=== PATIENT | male | born 1965 | race Caucasian/White ===

== ENCOUNTER 2021-06-10 16:35 | Emergency (ER) | payer MEDICAID, SELFPAY ==
--- NOTE | ~2021-06-10 | CT_ITS ---
EXAMINATION: CT head/brain wo con, CT cervical spine wo con INDICATION INFORMATION: Reason for Exam fall COMPARISON: None TECHNIQUE: Separate noncontrast CT examinations of the head and cervical spine were performed. Coronal and sagittal images were created for each examination at the technologist workstation. This CT examination was performed using dose optimization techniques as appropriate, variously including the following: *Automated exposure control *Adjustment of mA and/or kV according to patient size (this includes techniques or standardized protocols for targeted exams where dose is matched to indication/reason for exam; i.e. extremities or head) *Use of iterative reconstruction technique DLP: 1081 mGy-cm FINDINGS: Head: Mild left parietal soft tissue scalp swelling. No underlying calvarial fracture. The mastoid air cells and visualized portions of the paranasal sinuses are well aerated. There is no evidence of acute intracranial hemorrhage or territorial infarction. No abnormal mass effect or midline shift is seen. Richards to white matter differentiation is well preserved. No extra-axial fluid collections are identified. No hydrocephalus. Cervical spine: There is no evidence of acute cervical spine fracture. Vertebral bodies remain normal in height. Reversal of the usual cervical spine lordosis. Multilevel loss of disc space height and multilevel posterior disc osteophyte complexes, ossification of the posterior longitudinal ligament and reversal of the usual cervical spine lordosis resulting in at least moderate multilevel canal stenosis. No pre- or paravertebral soft tissue abnormality is identified. Visualized portions of the lung apices are unremarkable. The thyroid gland is unremarkable. CT/CT cervical spine wo con IMPRESSION: 1. No acute intracranial abnormality. 2. No cervical spine fracture. 3. Multilevel loss of disc space height and multilevel posterior disc osteophyte complexes, ossification of the posterior longitudinal ligament and reversal of the usual cervical spine lordosis resulting in at least moderate multilevel canal stenosis.
[2021-06-10 16:50] VITALS: BP 107/58; BP 117/66; PULSE 62; RESP 16; TEMP 36.7; O2SAT 96; BMI 29.7
--- NOTE | 2021-06-10 16:57 | ED_ITS ---
HPI - General Adult General Chief complaint: Fall Stated complaint: FALL PER SNF Time Seen by Provider: 06/10/21 16:39 Source: EMS Mode of arrival: EMS Limitations: other (Chronic Anoxic brain injury) History of Present Illness HPI narrative: Patient is brought to the emergency room by EMS. Earlier today, patient had a fall. Patient is a fall risk, patient is known to get up, trying to walk and fall. The fall was not witnessed, but CNAs were nearby that her the fall. Does not seem that patient lost consciousness, patient is not on blood thinners. Patient unable to give any significant history. Patient states that he has localized, no pain, no neck pain. Related Data Allergies Allergy/AdvReac Type Severity Reaction Status Date / Time Cephalosporins Allergy Unknown Verified 06/10/21 16:50 Review of Systems Review of Systems: Yes Unobtainable due to mental condition PMFSH Past Medical History Medical History Anoxic brain damage, not elsewhere classified Ataxic gait Benign prostatic hyperplasia without lower urinary tract symptoms Chronic obstructive pulmonary disease, unspecified Constipation, unspecified Cramp and spasm Encephalopathy, unspecified Essential (primary) hypertension Hyperlipidemia, unspecified Major depressive disorder, recurrent, unspecified Obstructive sleep apnea (adult) (pediatric) Retention of urine, unspecified Schizoaffective disorder, unspecified Seborrheic dermatitis, unspecified Unspecified convulsions Social History Social History Patient Tobacco Use Status: Never used Tobacco Smoked in Last 30 Days: No Use of substances other than those prescribed or required for medical reasons: No Advance Directives: No Advance Directives Information Provided: No Physical Exam Vital Signs: Vital Signs: Last Vital Signs Temp 98.1 F 06/10/21 18:00 Pulse 67 06/10/21 18:00 Resp 18 06/10/21 18:00 BP 138/68 06/10/21 18:00 Pulse Ox 95 06/10/21 18:00 BMI result Body Mass Index 29.7 Const: Other: Appearance: Alert. Oriented X2. No acute distress. Eyes: Pupils equal, round and reactive to light. ENT: Pharynx normal. Neck: Normal inspection. Neck supple. No lymph nodes noted. No crepitus CVS: Normal heart rate and rhythm. Pulses normal. Normal S1 and S2 Respiratory: No respiratory distress. Breath sounds normal. No Wheezing. No ra les Abdomen: Soft and nontender. No rigidity. No distention. Skin: Skin warm and dry. 3 cm x 3 cm hematoma on the forehead, no abrasion, no bleeding Extremities: No lower extremity edema. No lower extremity edema. No Lacerations. No Rash Neuro: Oriented X 2. No motor deficit. No sensory deficit. Moving all extermities. No slurred speech. Course Course Course Narrative: Patient's head and neck CT showing no acute abnormalities. Patient's COVID test is negative. No acute lab abnormalities. Medical Decision Making Lab Data Result diagrams: 06/10/21 17:25 06/10/21 17:25 Labs: Lab Results 06/10/21 06/10/21 06/10/21 Range/Units 17:25 17:25 17:25 WBC 8.6 (4.8-10.8) X10*3/uL RBC 4.17 L (4.60-5.80) X10*6/uL Hgb 13.4 L (14.0-18.0) g/dl Hct 38.6 L (42.0-52.0) % MCV 92.6 (80.0-98.0) fL MCH 32.1 (27.0-33.0) pg MCHC 34.7 (31.0-36.0) g/dl RDW 11.6 (11.0-16.0) % Plt Count 213 (160-400) X10*3/uL MPV 9.4 (9.4-12.4) fL Immature Gran % (Auto) 0.4 (0.0-0.4) % Neut % (Auto) 71.6 (45-73) % Lymph % (Auto) 13.9 L (20-40) % [place] % (Auto) 9.8 (2-11) % Eos % (Auto) 3.9 (0-4) % Baso % (Auto) 0.4 (0-2) % Lymph # (Auto) 1.2 (1.2-4.9) X10*3/uL [place] # (Auto) 0.8 (0.1-1.2) X10*3/uL Eos # (Auto) 0.3 (0.0-0.4) X10*3/uL Baso # (Auto) 0.0 (0.0-0.2) X10*3/uL Abs Immat Gran (auto) 0.03 (0.00-0.03) X10*3/uL Absolute Neuts (auto) 6.1 (2.0-8.3) x10*3/uL Absolute Nucleated RBC 0.000 (0.0-0.012) X10*3/uL Nucleated RBC % (auto) 0.0 (0.0-0.2) /100WBC Sodium 136 (135-145) mmol/L Potassium 4.1 (3.3-5.1) mmol/L Chloride 102 (96-108) mmol/L Carbon Dioxide 26 (22-29) mmol/L Anion Gap 12 (12-20) BUN 17 H (9-16) mg/dL Creatinine 0.85 (0.5-1.4) mg/dL Estim Creat Clear Calc 101.7 Estimated GFR > 60 Random Glucose 108 (60-115) mg/dL Calcium 9.4 (8.4-10.2) mg/dL Total Bilirubin < 0.2 (0.0-1.0) mg/dL Direct Bilirubin < 0.2 (0.0-0.5) mg/dL AST 25 (5-37) U/L ALT 36 (0-40) U/L Alkaline Phosphatase 104 (39-117) U/L Total Protein 7.1 (6.5-8.0) g/dL Albumin 4.2 (3.5-5.0) g/dL COVID-19 (MARKUS) Negative (Negative) COVID-19 Clin Com See Note Imaging Data CT of the head and cervical spine: Radiologist's impression: FINDINGS: Head: Mild left parietal soft tissue scalp swelling. No underlying calvarial fracture. The mastoid air cells and visualized portions of the paranasal sinuses are well aerated. There is no evidence of acute intracranial hemorrhage or territorial infarction. No abnormal mass effect or midline shift is seen. Richards to white matter differentiation is well preserved. No extra-axial fluid collections are identified. No hydrocephalus.? Cervical spine: There is no evidence of acute cervical spine fracture. Vertebral bodies remain normal in height.? ? Reversal of the usual cervical spine lordosis. Multilevel loss of disc space height and multilevel posterior disc osteophyte complexes, ossification of the posterior longitudinal ligament and reversal of the usual cervical spine lordosis resulting in at least moderate multilevel canal stenosis. No pre- or paravertebral soft tissue abnormality is identified.? Visualized portions of the lung apices are unremarkable. The thyroid gland is unremarkable. CT/CT head/brain wo con IMPRESSION: ? 1.? No acute intracranial abnormality. ? 2.? No cervical spine fracture. ? 3.? Multilevel loss of disc space height and multilevel posterior disc osteophyte complexes, ossification of the posterior longitudinal ligament and reversal of the usual cervical spine lordosis resulting in at least moderate multilevel canal stenosis. Discharge Plan Discharge Clinical Impression: Fall, Contusion Patient Disposition: Home, Self-Care Instructions: Facial Contusion (ED) Additional Instructions: Please follow-up with your primary care physician tomorrow. If you have any worsening or new symptoms, please return to the emergency room or call 911
--- NOTE | 2021-06-10 17:02 | PC.NURSE ---
Pt to CT scan
[2021-06-10 17:33] LABS: Basophils Percent Auto 0.4 % (0-2); Eosinophils Absolute Auto 0.3 X10*3/uL (0.0-0.4); Eosinophils Percent Auto 3.9 % (0-4); Hematocrit 38.6 % (42.0-52.0); Hemoglobin 13.4 g/dl (14.0-18.0); Imm Gran Abs Auto 0.03 X10*3/uL (0.00-0.03); Imm Gran Pct Auto 0.4 % (0.0-0.4); Lymphocytes Absolute Auto 1.2 X10*3/uL (1.2-4.9); Lymphocytes Percent Auto 13.9 % (20-40); MANUAL DIFF FLAG NO; Mean Corpuscular HGB Conc 34.7 g/dl (31.0-36.0); Mean Corpuscular Hemoglobin 32.1 pg (27.0-33.0); Mean Corpuscular Volume 92.6 fL (80.0-98.0); Mean Platelet Volume 9.4 fL (9.4-12.4); Monocytes Absolute Auto 0.8 X10*3/uL (0.1-1.2); Monocytes Percent Auto 9.8 % (2-11); Neutrophils Absolute Auto 6.1 x10*3/uL (2.0-8.3); Neutrophils Percent Auto 71.6 % (45-73); Platelet Count 213 X10*3/uL (160-400); Red Blood Count 4.17 X10*6/uL (4.60-5.80); Red Cell Distribution Width 11.6 % (11.0-16.0); White Blood Count 8.6 X10*3/uL (4.8-10.8)
[2021-06-10 17:53] LABS: COVID-19 Test Negative (Negative)
[2021-06-10 18:00] VITALS: BP 138/68; PULSE 67; RESP 18; TEMP 36.7; O2SAT 95
--- NOTE | 2021-06-10 18:01 | ECG_ITS ---
Test Reason : fall Blood Pressure : / mmHG Vent. Rate : 055 BPM Atrial Rate : 055 BPM P-R Int : 190 ms QRS Dur : 072 ms QT Int : 426 ms P-R-T Axes : 051 019 032 degrees QTc Int : 407 ms Sinus bradycardia Otherwise normal ECG No previous ECGs available Referred By: Salima Diamond Electronically Signed By:Lazarus Lane
[2021-06-10 18:11] LABS: Alanine Aminotransferase 36 U/L (0-40); Albumin Level 4.2 g/dL (3.5-5.0); Alkaline Phosphatase 104 U/L (39-117); Anion Gap 12 (12-20); Aspartate Amino Transferase 25 U/L (5-37); Bilirubin Direct < 0.2 mg/dL (0.0-0.5); Bilirubin Total < 0.2 mg/dL (0.0-1.0); Blood Urea Nitrogen 17 mg/dL (9-16); Calcium 9.4 mg/dL (8.4-10.2); Carbon Dioxide 26 mmol/L (22-29); Chloride 102 mmol/L (96-108); Creatinine Clr Calc Pharmacy 101.7; Estimated Glomerular Filt Rate > 60; Glucose Random 108 mg/dL (60-115); Potassium 4.1 mmol/L (3.3-5.1); Sodium 136 mmol/L (135-145); Total Protein 7.1 g/dL (6.5-8.0)
--- NOTE | 2021-06-10 18:24 | PC.NURSE ---
patient a&ox2- person/place, vss, pt denies pain/discomfort at this time, will continue to monitor.
--- NOTE | 2021-06-10 20:06 | PC.NURSE ---
Pt SNF notified that pt will be returning via EMS. Mother updated via phone
== END 2021-06-10 21:01 | disposition home or self-care (01) ==
PROVIDERS: Emergency Provider Emergency Medicine; PCP Internal Medicine
DX: S00.83XA Contusion of other part of head, initial encounter (principal); W19.XXXA Unspecified fall, initial encounter; Z91.81 History of falling; Z20.822 Contact with and (suspected) exposure to COVID-19; I10 Essential (primary) hypertension; E78.5 Hyperlipidemia, unspecified; G93.1 Anoxic brain damage, not elsewhere classified; Y93.9 Activity, unspecified; Y92.122 Bedroom in nursing home as the place of occurrence of the external cause; Y99.9 Unspecified external cause status
CPT/HCPCS: 36415; 70450; 72125; 80048; 80076; 85025; 87635; 93005; 99284

== ENCOUNTER 2023-01-19 | Outpatient (REF) | payer MEDICAID, SELFPAY | END 2023-01-19 00:01 | disposition home or self-care (01) | LOC: CF | PROVIDERS: PCP Emergency Medicine; Visit Provider Physician Assistant | DX: R10.9 Unspecified abdominal pain (principal) | CPT/HCPCS: 99204 ==

== ENCOUNTER → 2023-01-19 14:37 | Outpatient (AMB) | payer MEDICAID, SELFPAY ==
--- NOTE | 2023-01-19 14:46 | MHC.OFFVIS ---
Intake Vital Signs 01/19/23 15:06 Height 5 ft 7 in Weight 216 lb BMI 33.8 BP 114/67 Blood Pressure Location Lt brachial Position Sitting Pulse 75 Intake Visit Reasons: Colonoscopy Screening Allergies Cephalosporins Allergy (Verified 06/10/21 16:50) Unknown HPI HPI Comments History of Present Illness Details A 57 y/o male referred for screening colonoscopy- accompanied by COMMERCIAL INSTRUCTOR SUPERVISOR- says he understands- my observation- he has difficulty with speech/ communicating-he is difficult to understand when questions asked- able to get few words in answer- COMMERCIAL INSTRUCTOR SUPERVISOR-has no medical history information- consult paper attached to med list He does nod -appropriately- Denies belly pain- Appetite is good-he says he likes to eat- He says he is having a sleep study soon Spoke w/ Ann- discussed screening for colon cancer - colonoscopy vs cologuard-if he is infact asymptomatic No fever, chills, abdominal pain- incontinent- stool/urine- F/C in place [facility] Medical History (Updated 01/24/23 @ 14:00 by Fariha Lance PA-C) Anoxic brain damage, not elsewhere classified Ataxic gait Benign prostatic hyperplasia without lower urinary tract symptoms Chronic obstructive pulmonary disease, unspecified Constipation, unspecified Cramp and spasm Encephalopathy, unspecified Essential (primary) hypertension Hyperlipidemia, unspecified Major depressive disorder, recurrent, unspecified Obstructive sleep apnea (adult) (pediatric) Retention of urine, unspecified Schizoaffective disorder, unspecified Seborrheic dermatitis, unspecified Unspecified convulsions Social History (Updated 01/24/23 @ 13:50 by Fariha Lance PA-C) Household Members: Unknown / Unable to assess Household Members Other:: [place] [facility] Patient Tobacco Use Status: Never used Tobacco Review of Systems Card Denies chest pain and Denies dyspnea Resp Denies dyspnea GI Denies abdominal pain, Denies hematochezia, Denies heartburn, Reports fecal incontinence, Denies nausea and Denies vomiting Reports urinary incontinence Physical Exam Vital Signs: Last Vital Signs Pulse 75 01/19/23 15:06 BP 114/67 01/19/23 15:06 BMI result Body Mass Index 33.8 Const General: comfortable and no acute distress Limitations: altered mental status and wheelchair Resp Auscultation: clear to auscultation bilaterally, no rhonchi and no wheezes Cardio Rate: regular rate Rhythm: regular rhythm GI Palpation (GI): Soft to palpation and nontender Skin General skin exam: no rashes or lesions noted Psych Speech and movement: Slurred speech present Attitude: cooperative Assessment & Plan Assessment & Plan (1) Screen for colon cancer: Comment: pleasant 57 y/o gent-anoxic brain injury referred for screening colonoscopy. No GI symptoms- Incontinence- for years Discussed colonoscopy alternatives- Spoke with staff member- Cologuard- will submit request-if neg- repeat screening 3 years if positive recommend colonoscopy If any questions/ concerns please contact us- Code(s): Z12.11 - Encounter for screening for malignant neoplasm of colon Plan Cologuard Patient Instructions: As above Coding Level of Care Code New Pt Level 4 (68083) Diagnoses Screen for colon cancer Z12.11 Time Spent (min) 40 Comment pt- anoxic brain injury COMMERCIAL INSTRUCTOR SUPERVISOR present Call placed to facility
[2023-01-19 15:06] VITALS: BP 114/67; PULSE 75; BMI 33.8
== END ==
PROVIDERS: PCP Internal Medicine; Visit Provider Physician Assistant
DX: Z12.11 Encounter for screening for malignant neoplasm of colon (principal)
CPT/HCPCS: 99204

== ENCOUNTER 2023-01-24 10:27 | Outpatient (AMB) | payer MEDICAID, SELFPAY ==
[2023-01-24 10:35] VITALS: BP 110/58; PULSE 64; O2SAT 94; BMI 23.5
--- NOTE | 2023-01-24 10:35 | A.OFFVIS_ITS ---
Intake Vital Signs 01/24/23 10:35 Height 5 ft 7 in Weight 150 lb BMI 23.5 BP 110/58 L Blood Pressure Location Lt brachial Position Sitting Pulse 64 Pulse Source Pulse Oximeter Pulse Oximetry (%) 94 Oxygen Delivery Method Room Air Intake Visit Reasons: COPD/ASHANTI/Atelectasis Legislative Correspondent Required: No Middle School Sports Coach: Middle School Sports Coach offered & declined Accompanied by: [employer] Employee Allergies Cephalosporins Allergy (Verified 06/10/21 16:50) Unknown Medication List - Last Reconciled 01/24/23 by Leela Sauer LPN acetaminophen 650 mg LA Q6H baclofen 5 mg PO DAILY bisacodyl (Fleet Bisacodyl) 5 mg LA DAILY PRN bisacodyl (Dulcolax (bisacodyl)) 10 mg LA DAILY PRN carbamazepine ER 100 mg PO DAILY cetirizine (Zyrtec) 10 mg PO DAILY PRN cholecalciferol (vitamin D3) 10 mcg PO DAILY CPAP As directed fluoxetine 20 mg PO DAILY fluticasone furoate-vilanterol 100-25 mcg/dose (Breo Ellipta) 1 inh inhalation DAILY ipratropium-albuterol 0.5 mg-3 mg(2.5 mg base)/3 mL 3 mL inhalation Q6-8H PRN ketoconazole-miconazole 2-2 % apply KETOCONAZOLE once or twice daily; apply MICONAZOLE once or twice daily topical magnesium hydroxide (Milk of Magnesia) 5 mL PO BEDTIME naloxone 0.4 mg subcut Q2M PRN polyethylene glycol 3350 (Miralax) 17 grams PO DAILY potassium chloride 20 mEq PO DAILY sennosides (senna) 8.6 mg PO BEDTIME tamsulosin 0.4 mg PO DAILY tizanidine 2 mg PO Q8H PRN HPI COPD/ASHANTI/Atelectasis HPI Details Harjinder is a pleasant 57 year old, minimal former smoker, with COPD, ASHANTI, underlying TBI, seizure disorder and neurocognitive disorder. He is accompanied by a care attedent from [facility], [place] where he resides. Today he presents for pulmonary evaluation. He was referred by PCP for COPD, ASHANTI and CT findings of atelectasis. Patient reports an intermittent dry cough otherwise denies any respiratory symptoms at this time and feels his symptoms are well controlled on Breo, Claritin and duonebs PRN. He has a known history of ASHANTI and uses a CPAP. Prior to using he reports significant day time fatigue and snoring. He reports his last sleep study was quite some time ago. 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 He reports his father, smoker, had lung cancer. [facility] Medical History (Updated 01/25/23 @ 13:20 by Salima Rodgers NP) Anoxic brain damage, not elsewhere classified Ataxic gait Benign prostatic hyperplasia without lower urinary tract symptoms Chronic obstructive pulmonary disease, unspecified Constipation, unspecified Cramp and spasm Encephalopathy, unspecified Essential (primary) hypertension Hyperlipidemia, unspecified Major depressive disorder, recurrent, unspecified Obstructive sleep apnea (adult) (pediatric) Retention of urine, unspecified Schizoaffective disorder, unspecified Seborrheic dermatitis, unspecified Unspecified convulsions Social History (Updated 01/24/23 @ 13:50 by Fariha Lance PA-C) Household Members: Unknown / Unable to assess Household Members Other:: [place] [facility] Patient Tobacco Use Status: Never used Tobacco Review of Systems Const Denies chills, Denies excessive sweating, Denies fever(s), Denies headache(s) and Denies night sweats Eyes Denies dry eyes, Denies irritation and Denies itchy eyes ENT Reports Normal hearing present, Denies headache(s), Denies nasal congestion, Denies nasal discharge, Denies post nasal drip and Denies sore throat Card Denies chest pain, Denies chest pain at rest, Denies chest pain with activity, Denies dyspnea, Denies dyspnea on exertion, Denies orthopnea and Denies pa roxysmal nocturnal dyspnea Resp Denies chest congestion, Reports cough, Denies excessive phlegm production, Denies pain on inspiration, Denies pain with cough, Denies dyspnea, Denies dyspnea on exertion, Denies stridor and Denies wheezing Musc Denies myalgias Neuro Reports Normal hearing present and Denies headache(s) Endo Denies excessive sweating Eber/Lymph Denies lymphadenopathy Aller/Immun Denies itchy eyes, Denies seasonal rhinorrhea and Denies wheezing Physical Exam Vital Signs: Last Vital Signs Pulse 64 01/24/23 10:35 BP 110/58 L 01/24/23 10:35 Pulse Ox 94 01/24/23 10:35 Oxygen Delivery Method Room Air 01/24/23 10:35 BMI result Body Mass Index 23.5 Const Other: Patient able to answer questions appropriately, difficult to understand at times . General: cooperative, comfortable, no acute distress, well developed and alert Orientation/consciousness: patient oriented x3 Limitations: wheelchair HEENT Head: Yes normal to inspection, Yes normocephalic and Yes atraumatic Ears: hearing grossly normal bilaterally and external ears normal Eyes General: appearance normal, both eyes and all related structures Eyelids: Yes eyelids normal Sclerae: sclerae normal EOM: EOMs intact bilaterally Neck Neck: Yes normal visual inspection and Yes no lymphadenopathy Lymphatic: no lymphadenopathy noted Chest Chest palpation & inspection: normal inspection of the chest Resp Effort & Inspection: normal respiratory effort, able to speak in complete sentences, no audible wheezes, no cough, no stridor, not tachypneic, no tripod positioning and no use of accessory muscles Auscultation: clear to auscultation bilaterally Cardio Jugular venous distension: no JVD Rate: regular rate Rhythm: regular rhythm Skin Other: warm, dry General skin exam: no rashes or lesions noted Neuro General: patient oriented x3 Cranial nerves: Yes Normal hearing present Cognition (Neuro): normal cognition Psych Appearance: grossly normal and well kempt Speech and movement: Normal speech and movement present and Clear speech present Affect: normal affect Attitude: cooperative Thought process: Normal thought process present Thought content: Normal thought content present Insight: Good insight present (Psych) Judgement: Good judgement present (Psych) Results Reviewed Results Reviewed: Assessment & Plan Assessment & Plan (1) Obstructive sleep apnea: Code(s): G47.33 - Obstructive sleep apnea (adult) (pediatric) (2) Daytime somnolence: Code(s): R40.0 - Somnolence (3) Atelectasis of both lungs: Code(s): J98.11 - Atelectasis Plan Harjinder was recently seen at [facility] with LUQ pain and incidental atelectasis was found on chest CT bilaterally. Encouraged patient to perform deep breathing exercises including use of incentive spirometer. Will repeat imaging in 3 months to see if there are any changes. This information was relayed to Vanessa, patient care nursing assistant at [facility], [place]. At this time, he reports respiratory symptoms are well controlled therefore will continue on current regimen of Breo and duonebs PRN. Patient with known history of ASHANTI and reports significant daytime fatigue if not using. Will send for updated home sleep study, as prior study was performed quite some time ago. All questions were answered and patient is in agreement of plan. Will follow up to review results. Orders: Orders RT home sleep study Today R40.0 - Somnolence CT chest wo IV con 03/29/23 J98.11 - Atelectasis Coding Level of Care Code New Pt Level 4 (46203) Diagnoses Obstructive sleep apnea G47.33 Daytime somnolence R40.0 Atelectasis of both lungs J98.11
== END 2023-01-24 11:09 | disposition home or self-care (01) ==
PROVIDERS: PCP Internal Medicine; Visit Provider Nurse Practitioner Family
DX: G47.33 Obstructive sleep apnea (adult) (pediatric) (principal); R40.0 Somnolence; J98.11 Atelectasis
CPT/HCPCS: 99204

== ENCOUNTER → 2023-01-24 10:27 | Outpatient (BNVA) | payer MEDICAID, SELFPAY | PROVIDERS: PCP Internal Medicine; Visit Provider Nurse Practitioner Family | DX: J98.11 Atelectasis (principal); J44.9 Chronic obstructive pulmonary disease, unspecified; G47.33 Obstructive sleep apnea (adult) (pediatric); R40.0 Somnolence; Z99.89 Dependence on other enabling machines and devices; Z79.899 Other long term (current) drug therapy | CPT/HCPCS: 99204 ==

== ENCOUNTER → 2023-01-25 19:30 | Outpatient (REF) | payer MEDICAID, SELFPAY | LOC: HO.SL 19:30 | PROVIDERS: Visit Provider Nurse Practitioner Gerontology | DX: G47.33 Obstructive sleep apnea (adult) (pediatric) (principal); R40.0 Somnolence; R00.1 Bradycardia, unspecified | CPT/HCPCS: 95806 ==

== ENCOUNTER → 2023-01-25 21:56 | Outpatient (BNV) | payer MEDICAID, SELFPAY | PROVIDERS: Visit Provider Psychiatry & Neurology Neurology | DX: G47.33 Obstructive sleep apnea (adult) (pediatric) (principal); G47.61 Periodic limb movement disorder; R00.1 Bradycardia, unspecified | CPT/HCPCS: 95806 ==

== ENCOUNTER 2023-03-09 08:58 | Outpatient (REF) | payer MEDICAID, SELFPAY ==
--- NOTE | ~2023-03-09 | CT_ITS ---
EXAMINATION: CT CHEST WITHOUT CONTRAST CLINICAL INFORMATION: Atelectasis. COMPARISON: Chest radiographs dated 01/09/2023 and 03/14/2023. TECHNIQUE: Multidetector volumetric CT imaging of the chest was done. Axial MIP volume rendering provided. Sagittal and coronal reformatted images were obtained. This CT examination was performed using dose optimization techniques as appropriate, variously including the following: *Automated exposure control *Adjustment of mA and/or kV according to patient size (this includes techniques or standardized protocols for targeted exams where dose is matched to indication/reason for exam; i.e. extremities or head) *Use of iterative reconstruction technique DLP: 395 mGy-cm FINDINGS: REAL TIME ANALYST: The lungs are symmetrically well-expanded. There is diminished, now mild elevation of the left hemidiaphragm. LUNGS: There are scattered foci of linear scar/subsegmental atelectasis within the posterior segment of the right upper lobe and the bilateral lower lobes. There is no associated central airway obstruction. There is mild dependent hypoaeration. No mass, nodule, infiltrate or groundglass opacity is seen. There is no small airway thickening. The central airways appear patent. MEDIASTINUM: The thyroid is unremarkable. There is no thoracic aortic aneurysm. There are mild atherosclerotic calcifications of the great vessel origins and thoracic aorta. No mediastinal or hilar lymphadenopathy is seen. CORONARY ARTERY CALCIFICATION: Mild. PLEURA: There is no pleural effusion. No pleural mass or thickening. AXILLA: No lymphadenopathy. UPPER ABDOMEN: Unremarkable. OSSEOUS STRUCTURES: There is multi-level thoracic and upper lumbar degenerative disc disease, spondylosis and Schmorl's node formation. No acute or aggressive osseous abnormality is seen. CT/CT chest wo IV con IMPRESSION: 1. There are scattered foci of linear scar/subsegmental atelectasis within the lungs, without associated focal airway obstruction. There is mild elevation of the left hemidiaphragm. 2. No mass, nodule, infiltrate or groundglass opacity is seen. 3. There is no thoracic lymphadenopathy or pleural effusion. 4. There are multi-level degenerative changes of the thoracolumbar spine. No aggressive osseous lesion is seen. Fleischner guidelines were followed.
== END 2023-03-09 08:59 | disposition home or self-care (01) ==
LOC: HO.CT 08:58
PROVIDERS: Visit Provider Nurse Practitioner Family
DX: J98.11 Atelectasis (principal)
CPT/HCPCS: 71250

== ENCOUNTER 2023-03-14 07:57 | Inpatient (IN) | payer MEDICAID, SELFPAY ==
[2023-03-14] VITALS (16 sets, daily range): BP systolic 91–126; BP diastolic 44–70; PULSE 41–97; RESP 8–25; TEMP 32.2–37; O2SAT 93–97; BMI 33.9; BMI 33.3
--- NOTE | ~2023-03-14 | XR_ITS ---
EXAMINATION: XR CHEST CLINICAL INFORMATION: Altered mental status COMPARISON: None available. TECHNIQUE: Frontal view of the chest was obtained. FINDINGS: Heart, mediastinum and vessels within normal limits. Elevated left hemidiaphragm with basilar atelectasis. No consolidations or effusions. Bony structures are intact. XR/XR chest 1V IMPRESSION: Left base atelectasis with elevated left hemidiaphragm.
--- NOTE | ~2023-03-14 | CT_ITS ---
EXAMINATION: CT HEAD WITHOUT CONTRAST CLINICAL INFORMATION: Altered mental status. COMPARISON: None available. TECHNIQUE: Contiguous axial imaging was performed from the skull base to vertex without intravenous administration of contrast. This CT examination was performed using dose optimization techniques as appropriate, variously including the following: *Automated exposure control *Adjustment of mA and/or kV according to patient size (this includes techniques or standardized protocols for targeted exams where dose is matched to indication/reason for exam; i.e. extremities or head) *Use of iterative reconstruction technique DLP: 631 mGy-cm FINDINGS: The lateral, third and fourth ventricles are normally outlined. The cortical sulci and basal cisterns are normally outlined as well. There is no acute territorial defect, hemorrhage or midline shift. The extra-axial spaces are unremarkable. Calvarium: Intact. Maxillofacial sinuses and mastoids: Clear as visualized. CT/CT head/brain wo IV con IMPRESSION: No acute intracranial pathology.
--- NOTE | ~2023-03-14 | CT_ITS ---
EXAMINATION: CT HEAD WITHOUT CONTRAST CLINICAL INFORMATION: Unresponsiveness. COMPARISON: Head CT from 06/10/2021 and 12/10/2022 TECHNIQUE: Contiguous axial imaging was performed from the skull base to vertex without intravenous administration of contrast. This CT examination was performed using dose optimization techniques as appropriate, variously including the following: *Automated exposure control *Adjustment of mA and/or kV according to patient size (this includes techniques or standardized protocols for targeted exams where dose is matched to indication/reason for exam; i.e. extremities or head) *Use of iterative reconstruction technique DLP: 694 mGy-cm FINDINGS: No acute intracranial findings compared to 12/10/2022. The kwan-white matter differentiation is maintained. No evidence of an acute major vascular territory infarction. No intracranial hemorrhage, extra-axial surface collection, focal mass effect or midline shift. The ventricles have normal size and configuration; no hydrocephalus. The cerebellar tonsils are in normal position. No evidence of calvarial fracture. The paranasal sinuses and mastoid air cells are well aerated. The temporomandibular joints, orbits and globes are unremarkable. Incidentally noted are dental caries. CT/CT head/brain wo IV con IMPRESSION: No acute intracranial pathology compared to 12/10/2022.
--- NOTE | ~2023-03-14 | CT_ITS ---
EXAMINATION: CT ABDOMEN AND PELVIS WITHOUT CONTRAST CLINICAL INFORMATION: Abdominal distention COMPARISON: None available. TECHNIQUE: Multidetector volumetric imaging was performed from the superior aspect of the liver through the pubic symphysis. Sagittal and coronal reformatted images were obtained on the technologist's workstation. This CT examination was performed using dose optimization techniques as appropriate, variously including the following: *Automated exposure control *Adjustment of mA and/or kV according to patient size (this includes techniques or standardized protocols for targeted exams where dose is matched to indication/reason for exam; i.e. extremities or head) *Use of iterative reconstruction technique DLP: 1358 mGy-cm FINDINGS: LUNG BASES: Subsegmental atelectasis at the lung bases LIVER, GALLBLADDER, AND BILIARY TREE: The liver is normal in size, shape, and attenuation. No focal hepatic lesion or biliary ductal dilatation is present. The gallbladder is unremarkable with no evidence of radiopaque gallstones, gallbladder wall thickening, or obvious pericholecystic inflammatory changes. PANCREAS: Fatty infiltration of the pancreas. SPLEEN: Unremarkable. ADRENAL GLANDS: Unremarkable. KIDNEYS AND URETERS: The kidneys are normal in size, shape, and attenuation. No hydronephrosis, hydroureter, or calculi seen. No perinephric stranding. BLADDER: There is a Reynolds catheter in the bladder. The bladder is empty. The bladder wall is markedly thickened. There is contour abnormality along the right anterior lateral bladder wall. Is difficult to exclude a mass. GASTROINTESTINAL TRACT: There is a large amount of stool in the colon suggestive of constipation. The colon is dilated suggestive of secondary obstruction or obstipation. There is mild wall thickening of the rectosigmoid region and some stranding of the fat is normal for stercoral colitis related to chronic constipation. Small and large bowel is otherwise normal. The appendix is normal. The stomach is normal. ABDOMINAL WALL: Small umbilical hernia containing fat. LYMPH NODES: Normal. VASCULAR: Atherosclerotic disease. PELVIC VISCERA: The prostate gland does not appear enlarged. OSSEOUS STRUCTURES: Degenerative changes of the spine. CT/CT abdomen pelvis wo IV con IMPRESSION: Severe constipation. Dilated colon suggestive of secondary obstruction/obstipation and fecal impaction. Mild wall thickening of the rectosigmoid region and stranding of the surrounding fat questionable for stercoral colitis related to chronic constipation. Reynolds catheter in the bladder. Diffusely thickened bladder wall. Abnormal contour to the right anterior lateral bladder wall. Mass cannot be excluded. Follow-up bladder imaging recommended. Fleischner guidelines were followed.
--- NOTE | 2023-03-14 08:18 | ED.AMS ---
HPI - Altered Mental Status General Chief Complaint: Altered Mental Status Stated Complaint: AMS,ALERT TO PAIN ONLY FROM SNF PER EMS Time Seen by Provider: 03/14/23 08:18 Source: EMS Mode of arrival: EMS Limitations: altered mental status History of Present Illness HPI narrative: 57-year-old male With history of frontotemporal neuro cognitive disorder, depression, seizures, history of obstructive uropathy, schizoaffective disorder, constipation, BPH, COPD, dysphagia, ataxia, HTN, anoxic brain injury, hepatitis-C, anemia, polyneuropathy who presents to the ER via EMS from [facility] for evaluation of altered mental status. Patient is usually awake, alert and conversant, he requires assistance with ADLs. Per report from the group home, after the patient was stressed this morning and moved to the chair he became poorly responsive. He had snoring respirations. He is found have heart rate in the 40s. EMS was called. On EMS arrival patient was arousable to sternal rub only. His heart rate was in the 40s, blood pressure was stable. On arrival to the ER patient had similar vital signs. He was altered, protecting his airway. He would groan with sternal rub. He was found have a core temperature of 90 degrees. senior care staff denied any trauma, he is not on anticoagulation. No history of similar episodes. No witnessed seizure activity with staff this morning. They state he was complaining of some abdominal discomfort yesterday, had a KUB that showed some mild constipation he was started on Colace. MD complaint: altered mental status Onset (ago): minute(s) Time: 06:50 Timing confirmed by: caregiver Severity: severe Consistency of symptoms: getting Worse Context: seizure disorder Treatments prior to arrival: oxygen Related Data Home Medications Medication Instructions Recorded Confirmed CPAP 01/19/23 01/24/23 acetaminophen 650 mg rectal 650 mg AK Q6H 01/19/23 01/24/23 suppository baclofen 5 mg tablet 5 mg PO DAILY 01/19/23 01/24/23 bisacodyl 10 mg rectal suppository 10 mg AK DAILY PRN 01/19/23 01/24/23 (Dulcolax (bisacodyl)) bisacodyl 10 mg/30 mL enema (Fleet 5 mg AK DAILY PRN 01/19/23 01/24/23 Bisacodyl) carbamazepine 100 mg 100 mg PO DAILY 01/19/23 01/24/23 capsule,extended release [id number] cetirizine 10 mg capsule (Zyrtec) 10 mg PO DAILY PRN 01/19/23 01/24/23 cholecalciferol (vitamin D3) 10 10 mcg PO DAILY 01/19/23 01/24/23 mcg (400 unit) capsule fluoxetine 20 mg capsule 20 mg PO DAILY 01/19/23 01/24/23 fluticasone furoate 100 1 inh inhalation DAILY 01/19/23 01/24/23 mcg-vilanterol 25 mcg/dose inhalation powder (Breo Ellipta) ipratropium 0.5 mg-albuterol 3 mg 3 ml inhalation Q6-8H PRN 01/19/23 01/24/23 (2.5 mg base)/3 mL nebulization soln ketoconazole 2 % cream-miconazole See Rx Instructions topical 01/19/23 01/24/23 2 % tincture .COMPLEX magnesium hydroxide 400 mg/5 mL 5 ml PO BEDTIME 01/19/23 01/24/23 oral suspension (Milk of Magnesia) naloxone 0.4 mg/mL injection 0.4 mg subcut Q2M PRN 01/19/23 01/24/23 solution polyethylene glycol 3350 17 17 g PO DAILY 01/19/23 01/24/23 gram/dose oral powder (Miralax) potassium chloride 20 mEq/15 mL 20 meq PO DAILY 01/19/23 01/24/23 oral liquid sennosides 8.6 mg capsule (senna) 8.6 mg PO BEDTIME 01/19/23 01/24/23 tamsulosin 0.4 mg capsule 0.4 mg PO DAILY 01/19/23 01/24/23 tizanidine 2 mg capsule 2 mg PO Q8H PRN 01/19/23 01/24/23 Allergies Allergy/AdvReac Type Severity Reaction Status Date / Time Cephalosporins Allergy Unknown Verified 06/10/21 16:50 Review of Systems Review of Systems: Yes Unobtainable due to mental status PMFSH Past Medical History Medical History (Updated 03/14/23 @ 13:23 by NICOLE Davis) Encephalopathy, unspecified Essential (primary) hypertension Ataxic gait Obstructive sleep apnea (adult) (pediatric) Chronic obstructive pulmonary disease, unspecified Anoxic brain damage, not elsewhere classified Retention of urine, unspecified Benign prostatic hyperplasia without lower urinary tract symptoms Constipation, unspecified Seborrheic dermatitis, unspecified Cramp and spasm Hyperlipidemia, unspecified Unspecified convulsions Major depressive disorder, recurrent, unspecified Schizoaffective disorder, unspecified Social History Social History (Updated 01/24/23 @ 13:50 by Fariha Lance PA-C) Household Members: Unknown / Unable to assess Household Members Other:: [facility] Patient Tobacco Use Status: Never used Tobacco Smoked in Last 30 Days: No Use of substances other than those prescribed or required for medical reasons: No Advance Directives: Yes Advance Directives Information Provided: No Advance Directives on File: No Physical Exam ED Vital Signs: Vital Signs - 24 hr 03/14/23 08:08 03/14/23 08:52 03/14/23 09:51 Temperature 98.2 F 90.8 F L 90 F L Pulse Rate 41 L 48 L Respiratory Rate 25 H 13 Blood Pressure 103/54 L 114/60 Pulse Oximetry 94 97 Oxygen Delivery Method Room Air Nasal Cannula Oxygen Flow Rate 1.5 03/14/23 10:06 03/14/23 10:17 03/14/23 10:35 Temperature 90.7 F L 90.9 F L 91.2 F L Pulse Rate 48 L 51 51 Respiratory Rate 8 L 15 15 Blood Pressure 111/59 L 111/58 L 107/60 Pulse Oximetry 96 94 95 Oxygen Delivery Method Nasal Cannula Nasal Cannula Nasal Cannula Oxygen Flow Rate 1.5 1.5 1.5 03/14/23 10:36 03/14/23 10:58 03/14/23 11:47 Temperature 91.4 F L 91.6 F L 92.7 F L Pulse Rate 52 49 L 69 Respiratory Rate 10 L 11 L 11 L Blood Pressure 107/49 L 116/54 L 102/51 L Pulse Oximetry 96 96 97 Oxygen Delivery Method Nasal Cannula Nasal Cannula Nasal Cannula Oxygen Flow Rate 1.5 1.5 2 BMI result Body Mass Index 33.9 Appearance: lethargic male lying in bed, snoring respirations, appears older than stated age Head: normocephalic, atraumatic. Eyes: Pupils pinpoint, equal round. ENT: Pharynx normal. No tonsillar swelling or exudate. Neck: Normal inspection. Neck supple. CVS: Normal heart rate and rhythm. Pulses normal. Respiratory: No respiratory distress. Breath sounds normal. Abdomen: Obese,Soft and nontender. +BS x4 Skin: Skin warm and dry. Normal skin color. Normal skin turgor. No rashes. Extremities: No lower extremity edema. No joint swelling. Neuro/psych: lethargic, arouses to sternal rub, does not follow commands, no posturing. Reacts to noxious stimuli with his upper extremities Course Reevaluation(s) Reevaluation #1: Patient found to be hypothermic to 90 degrees rectally. A temperature Reynolds was placed confirming hypothermia. He is altered, bradycardic in the 40s (sinus), with leukopenia, WBC 3.3. There is concern for sepsis at this time. Unclear source. Will start levaquin. IVF infusing. He has allergy to cephalosporins, unknown reaction. Sepsis alert called. No response to IV narcan Time: 09:02 Reevaluation #2: patient's temperature slowly improving. He remains altered but groaning with sternal rub at times. Blood pressure remained stable. Patient found to have a UTI on straight catheterization. He is covered with Levaquin. Time: 11:51 Reevaluation #3: hypothermia still improving. Temp 94.5 degrees on Deidra Hugger. Patient grunts and briefly opens eyes to sternal rub. He is protecting his airway. Will continue to treat sepsis and hypothermia and admit him to the hospital for further management. Time: 13:20 Medications Administered Discontinued Medications Generic Name Dose Route Start Last Admin Trade Name Freq PRN Reason Stop Dose Admin Levofloxacin 750 mg in 150 mls @ 100 mls/hr 03/14/23 09:11 03/14/23 10:56 Levaquin IV 03/14/23 10:40 Infused ONCE ONE Infusion Sodium Chloride 1,000 mls @ 999 mls/hr 03/14/23 09:15 03/14/23 10:14 Ns IVCONT 03/14/23 10:15 Infused .Q1H1M DEQUAN Infusion Naloxone HCl 0.4 mg 03/14/23 08:24 03/14/23 08:24 Naloxone Hcl 0.4 Mg/Ml Vial IVPUSH 03/14/23 08:25 0.4 mg STAT STA Administration Medical Decision Making Medical Decision Making MDM Narrative: 57-year-old male with history of frontotemporal neuro cognitive disorder, depression, seizures, history of obstructive uropathy, schizoaffective disorder, constipation, BPH, COPD, dysphagia, ataxia, HTN, anoxic brain injury, hepatitis-C, anemia, polyneuropathy who presents to the ER via EMS from long-term nursing facility for evaluation of altered mental status and bradycardia. FULL CODE confirmed with group home staff. He was swinging at Dr. Batista with noxious stimuli. Protecting airway. HR 40s, sinus elissa with stale BP 100s. Core temp 90. Concern for sepsis. IV levaquin and IVF ordered. ++UTI patient placed on the Deidra Hugger with slow improvement in his temperatures. He remains altered but is groaning with noxious stimuli. temperature slowly improved to 94.5. BP and HR stable Differential Diagnosis Differential Diagnoses: The differential diagnosis associated with the presentation includes acute metabolic encephalopathy, ICH, stroke, sepsis, seizure, electrolyte abnormality Admission/Observation Consideration of admission/observation: Escalation of care including admission/observation considered sepsis w/ encephalopathy requiring admission Consult Healthcare Provider Management of the patient was discussed with: Hospitalist Lab Data [facility] Lab Attestation statement: I reviewed the patient's lab results. neutropenia 03/14/23 08:33 03/14/23 08:33 Labs: Lab Results 03/14/23 03/14/23 03/14/23 Range/Units 08:17 08:33 08:35 WBC 3.3 L (4.8-10.8) X10*3/uL RBC 4.29 L (4.60-5.80) X10*6/uL Hgb 13.4 L (14.0-18.0) g/dl Hct 39.1 L (42.0-52.0) % MCV 91.1 (80.0-98.0) fL MCH 31.2 (27.0-33.0) pg MCHC 34.3 (31.0-36.0) g/dl RDW 12.1 (11.0-16.0) % Plt Count 196 (160-400) X10*3/uL MPV 9.3 L (9.4-12.4) fL Immature Gran % (Auto) 1.2 H (0.0-0.4) % Neut % (Auto) 52.4 (45-73) % Lymph % (Auto) 23.7 (20-40) % [place] % (Auto) 16.9 H (2-11) % Eos % (Auto) 5.2 H (0-4) % Baso % (Auto) 0.6 (0-2) % Lymph # (Auto) 0.8 L (1.2-4.9) X10*3/uL [place] # (Auto) 0.6 (0.1-1.2) X10*3/uL Eos # (Auto) 0.2 (0.0-0.4) X10*3/uL Baso # (Auto) 0.0 (0.0-0.2) X10*3/uL Abs Immat Gran (auto) 0.04 H (0.00-0.03) X10*3/uL Absolute Neuts (auto) 1.7 L (2.0-8.3) x10*3/uL Absolute Nucleated RBC 0.000 (0.0-0.012) X10*3/uL Nucleated RBC % (auto) 0.0 (0.0-0.2) /100WBC PT 12.1 (11.1-13.3) SEC INR 1.0 (0.9-1.1) APTT 35.0 (26.0-36.4) SEC VBG pH (7.32-7.43) VBG pCO2 mmHg VBG pO2 mmHg VBG HCO3 (22-26) mmol/L VBG O2 Saturation % VBG Base Excess mmol/L Sodium 140 (135-145) mmol/L Potassium 3.7 (3.3-5.1) mmol/L Chloride 107 (96-108) mmol/L Carbon Dioxide 27 (22-29) mmol/L Anion Gap 10 L (12-20) BUN 17 H (9-16) mg/dL Creatinine 0.66 (0.5-1.4) mg/dL Estim Creat Clear Calc 136.2 Estimated GFR > 60 POC Glucose 110 (60-115) mg/dL Random Glucose 99 (60-115) mg/dL Lactic Acid 0.8 (0.5-2.0) mmol/L Calcium 9.6 (8.4-10.2) mg/dL Magnesium 2.1 (1.6-2.6) mg/dL Total Bilirubin 0.2 (0.0-1.0) mg/dL Direct Bilirubin < 0.2 (0.0-0.5) mg/dL AST 21 (5-37) U/L ALT 28 (0-40) U/L Alkaline Phosphatase 107 (39-117) U/L Ammonia 40 (13-55) umol/L Troponin I High Sens < 2.7 (<3.5-35.0) ng/L Total Protein 7.1 (6.5-8.0) g/dL Albumin 4.0 (3.5-5.0) g/dL TSH 2.20 (0.32-4.0) uIU/mL Random Cortisol ug/dL Urine Color Urine Appearance Urine pH (5.0-9.0) Ur Specific [place] (1.005-1.025) Urine Protein (Neg-Trace) mg/dL Urine Glucose (UA) (Negative) mg/dL Urine Ketones (Negative) mg/dL Urine Blood (Negative) Urine Nitrite (Negative) Ur Leukocyte Esterase (Negative) Urine RBC (0-2) /HPF Urine WBC (0-5) /HPF Ur Squamous Epith Cells (0-2) /HPF Urine Bacteria (None Seen) Hyaline Casts (0-2) /LPF Urine Opiates Screen (Not Detect) Urine Fentanyl Screen (Not Detect) Ur Barbiturates Screen (Not Detect) Ur Phencyclidine Scrn (Not Detect) Ur Amphetamines Screen (Not Detect) U Benzodiazepines Scrn (Not Detect) Urine Cocaine Screen (Not Detect) U Marijuana (THC) Screen (Not Detect) Influenza Type A (PCR) (Negative) Influenza Type B (PCR) (Negative) RSV RNA Qual (PCR) (Negative) SARS-CoV-2 RNA (RT-PCR) (Negative) 03/14/23 03/14/23 03/14/23 Range/Units 08:36 08:45 09:01 WBC (4.8-10.8) X10*3/uL RBC (4.60-5.80) X10*6/uL Hgb (14.0-18.0) g/dl Hct (42.0-52.0) % MCV (80.0-98.0) fL MCH (27.0-33.0) pg MCHC (31.0-36.0) g/dl RDW (11.0-16.0) % Plt Count (160-400) X10*3/uL MPV (9.4-12.4) fL Immature Gran % (Auto) (0.0-0.4) % Neut % (Auto) (45-73) % Lymph % (Auto) (20-40) % [place] % (Auto) (2-11) % Eos % (Auto) (0-4) % Baso % (Auto) (0-2) % Lymph # (Auto) (1.2-4.9) X10*3/uL [place] # (Auto) (0.1-1.2) X10*3/uL Eos # (Auto) (0.0-0.4) X10*3/uL Baso # (Auto) (0.0-0.2) X10*3/uL Abs Immat Gran (auto) (0.00-0.03) X10*3/uL Absolute Neuts (auto) (2.0-8.3) x10*3/uL Absolute Nucleated RBC (0.0-0.012) X10*3/uL Nucleated RBC % (auto) (0.0-0.2) /100WBC PT (11.1-13.3) SEC INR (0.9-1.1) APTT (26.0-36.4) SEC VBG pH 7.33 (7.32-7.43) VBG pCO2 56 mmHg VBG pO2 78 mmHg VBG HCO3 30 H (22-26) mmol/L VBG O2 Saturation 94.0 % VBG Base Excess 3.5 mmol/L Sodium (135-145) mmol/L Potassium (3.3-5.1) mmol/L Chloride (96-108) mmol/L Carbon Dioxide (22-29) mmol/L Anion Gap (12-20) BUN (9-16) mg/dL Creatinine (0.5-1.4) mg/dL Estim Creat Clear Calc Estimated GFR POC Glucose (60-115) mg/dL Random Glucose (60-115) mg/dL Lactic Acid (0.5-2.0) mmol/L Calcium (8.4-10.2) mg/dL Magnesium (1.6-2.6) mg/dL Total Bilirubin (0.0-1.0) mg/dL Direct Bilirubin (0.0-0.5) mg/dL AST (5-37) U/L ALT (0-40) U/L Alkaline Phosphatase (39-117) U/L Ammonia (13-55) umol/L Troponin I High Sens (<3.5-35.0) ng/L Total Protein (6.5-8.0) g/dL Albumin (3.5-5.0) g/dL TSH (0.32-4.0) uIU/mL Random Cortisol ug/dL Urine Color Yellow Urine Appearance Turbid Urine pH 8.0 (5.0-9.0) Ur Specific [place] 1.010 (1.005-1.025) Urine Protein Negative (Neg-Trace) mg/dL Urine Glucose (UA) Negative (Negative) mg/dL Urine Ketones Negative (Negative) mg/dL Urine Blood Negative (Negative) Urine Nitrite Negative (Negative) Ur Leukocyte Esterase Large (3+) H (Negative) Urine RBC 0-2 (0-2) /HPF Urine WBC >50 H (0-5) /HPF Ur Squamous Epith Cells 0-2 (0-2) /HPF Urine Bacteria 4+ (None Seen) Hyaline Casts 0-2 (0-2) /LPF Urine Opiates Screen Not Detected (Not Detect) Urine Fentanyl Screen Not Detected (Not Detect) Ur Barbiturates Screen Not Detected (Not Detect) Ur Phencyclidine Scrn Not Detected (Not Detect) Ur Amphetamines Screen Not Detected (Not Detect) U Benzodiazepines Scrn Not Detected (Not Detect) Urine Cocaine Screen Not Detected (Not Detect) U Marijuana (THC) Screen Not Detected (Not Detect) Influenza Type A (PCR) NEGATIVE (Negative) Influenza Type B (PCR) NEGATIVE (Negative) RSV RNA Qual (PCR) NEGATIVE (Negative) SARS-CoV-2 RNA (RT-PCR) NEGATIVE (Negative) 03/14/23 Range/Units 10:25 WBC (4.8-10.8) X10*3/uL RBC (4.60-5.80) X10*6/uL Hgb (14.0-18.0) g/dl Hct (42.0-52.0) % MCV (80.0-98.0) fL MCH (27.0-33.0) pg MCHC (31.0-36.0) g/dl RDW (11.0-16.0) % Plt Count (160-400) X10*3/uL MPV (9.4-12.4) fL Immature Gran % (Auto) (0.0-0.4) % Neut % (Auto) (45-73) % Lymph % (Auto) (20-40) % [place] % (Auto) (2-11) % Eos % (Auto) (0-4) % Baso % (Auto) (0-2) % Lymph # (Auto) (1.2-4.9) X10*3/uL [place] # (Auto) (0.1-1.2) X10*3/uL Eos # (Auto) (0.0-0.4) X10*3/uL Baso # (Auto) (0.0-0.2) X10*3/uL Abs Immat Gran (auto) (0.00-0.03) X10*3/uL Absolute Neuts (auto) (2.0-8.3) x10*3/uL Absolute Nucleated RBC (0.0-0.012) X10*3/uL Nucleated RBC % (auto) (0.0-0.2) /100WBC PT (11.1-13.3) SEC INR (0.9-1.1) APTT (26.0-36.4) SEC VBG pH (7.32-7.43) VBG pCO2 mmHg VBG pO2 mmHg VBG HCO3 (22-26) mmol/L VBG O2 Saturation % VBG Base Excess mmol/L Sodium (135-145) mmol/L Potassium (3.3-5.1) mmol/L Chloride (96-108) mmol/L Carbon Dioxide (22-29) mmol/L Anion Gap (12-20) BUN (9-16) mg/dL Creatinine (0.5-1.4) mg/dL Estim Creat Clear Calc Estimated GFR POC Glucose (60-115) mg/dL Random Glucose (60-115) mg/dL Lactic Acid (0.5-2.0) mmol/L Calcium (8.4-10.2) mg/dL Magnesium (1.6-2.6) mg/dL Total Bilirubin (0.0-1.0) mg/dL Direct Bilirubin (0.0-0.5) mg/dL AST (5-37) U/L ALT (0-40) U/L Alkaline Phosphatase (39-117) U/L Ammonia (13-55) umol/L Troponin I High Sens (<3.5-35.0) ng/L Total Protein (6.5-8.0) g/dL Albumin (3.5-5.0) g/dL TSH (0.32-4.0) uIU/mL Random Cortisol 6.7 ug/dL Urine Color Urine Appearance Urine pH (5.0-9.0) Ur Specific [place] (1.005-1.025) Urine Protein (Neg-Trace) mg/dL Urine Glucose (UA) (Negative) mg/dL Urine Ketones (Negative) mg/dL Urine Blood (Negative) Urine Nitrite (Negative) Ur Leukocyte Esterase (Negative) Urine RBC (0-2) /HPF Urine WBC (0-5) /HPF Ur Squamous Epith Cells (0-2) /HPF Urine Bacteria (None Seen) Hyaline Casts (0-2) /LPF Urine Opiates Screen (Not Detect) Urine Fentanyl Screen (Not Detect) Ur Barbiturates Screen (Not Detect) Ur Phencyclidine Scrn (Not Detect) Ur Amphetamines Screen (Not Detect) U Benzodiazepines Scrn (Not Detect) Urine Cocaine Screen (Not Detect) U Marijuana (THC) Screen (Not Detect) Influenza Type A (PCR) (Negative) Influenza Type B (PCR) (Negative) RSV RNA Qual (PCR) (Negative) SARS-CoV-2 RNA (RT-PCR) (Negative) ABG Data ABG Results: Attestation ABG: I personally reviewed and interpreted this ABG as follows: Interpretation: mild acute respiratory acidosis Independent Interpretation I performed an independent interpretation of an: EKG, Plain X-Ray and CT Scan Interpretation: EKG was some artifact, sinus bradycardia with heart rate 44, P waves present, no ST segment elevations or depressions. Chest x-ray with left hemidiaphragm elevation, no focal pneumonia appreciated, poor inspiratory effort. CT scan without acute edema or bleed, agree with radiologist read Radiology Impression Discussion of test interpretation with radiology: I have reviewed the radiologist's reading. Radiologist Impression: CT/CT head/brain wo IV con IMPRESSION: No acute intracranial pathology compared to 12/10/2022. XR/XR chest 1V IMPRESSION: Left base atelectasis with elevated left hemidiaphragm. Independent Historian Clinical information obtained from an independent historian. History obtained from or confirmed by: EMS and Other ( staff at [facility]) External Record Review External record reviewed: Office record and Outpatient record Prescription Management I considered prescription management with: Antibiotic Chronic Conditions Patient?s care impacted by: Other ( schizoaffective disorder, seizure disorder,) Critical Care Time Critical Care Time Critical Care Time: Yes Total Critical Care Time: 57 Attestation: I have personally provided critical care time exclusive of time spent on separately billable procedures. Time includes review of lab data, radiology results, discussion with consultants, and monitoring for potential decompensation. Intervention performed as documented. Discharge Plan Discharge Clinical Impression: Acute metabolic encephalopathy, Hypothermia, Bradycardia, Sepsis, Acute UTI Patient Disposition: Admitted As Inpatient
--- NOTE | 2023-03-14 08:20 | ECG_ITS ---
Test Reason : UNRESPONSIVE Blood Pressure : / mmHG Vent. Rate : 044 BPM Atrial Rate : 000 BPM P-R Int : 000 ms QRS Dur : 100 ms QT Int : 524 ms P-R-T Axes : 000 003 024 degrees QTc Int : 448 ms Poor data quality, interpretation may be adversely affected Marked sinus bradycardia Abnormal ECG When compared with ECG of 10-JUN-2021 18:50, QRS duration has increased Heart rate has decreased Referred By: Zahraa Francisco Electronically Signed By:GEORGES RAMACHANDRAN
[2023-03-14] MEDS: Naloxone HCl 0.4 MG/ML VIAL IVPUSH (08:24)
--- NOTE | 2023-03-14 08:24 | PC.NURSE ---
pt comes in unresponsive to verbal stimuli, pain stimuli, and sternal rub. HR down to the 30s. placed on pacer pads. iv established and labs drawn. pt noted to have pinpoint pupils. narcan IV administered - no response. EKG obtained. no pain repsponse from this RN, however, positive pain response from Dr. Batista. sating 96% on room air. BP stable. etCO2 36 - placed on 2L nasal cannula sean Thomast, RT.
[2023-03-14 08:30] LABS: Glucose, Whole Blood 110 mg/dL (60-115)
[2023-03-14 08:46] LABS: MANUAL DIFF FLAG NO
[2023-03-14 08:47] LABS: Basophils Percent Auto 0.6 % (0-2); Eosinophils Absolute Auto 0.2 X10*3/uL (0.0-0.4); Eosinophils Percent Auto 5.2 % (0-4); Hematocrit 39.1 % (42.0-52.0); Hemoglobin 13.4 g/dl (14.0-18.0); Imm Gran Abs Auto 0.04 X10*3/uL (0.00-0.03); Imm Gran Pct Auto 1.2 % (0.0-0.4); Lymphocytes Absolute Auto 0.8 X10*3/uL (1.2-4.9); Lymphocytes Percent Auto 23.7 % (20-40); Mean Corpuscular HGB Conc 34.3 g/dl (31.0-36.0); Mean Corpuscular Hemoglobin 31.2 pg (27.0-33.0); Mean Corpuscular Volume 91.1 fL (80.0-98.0); Mean Platelet Volume 9.3 fL (9.4-12.4); Monocytes Absolute Auto 0.6 X10*3/uL (0.1-1.2); Monocytes Percent Auto 16.9 % (2-11); Neutrophils Absolute Auto 1.7 x10*3/uL (2.0-8.3); Neutrophils Percent Auto 52.4 % (45-73); Platelet Count 196 X10*3/uL (160-400); Red Blood Count 4.29 X10*6/uL (4.60-5.80); Red Cell Distribution Width 12.1 % (11.0-16.0); White Blood Count 3.3 X10*3/uL (4.8-10.8)
[2023-03-14 08:49] LABS: Venous Blood Gas Refer to POC result
[2023-03-14 08:49] LABS: VBG Base Excess 3.5 mmol/L; VBG HCO3 30 mmol/L (22-26); VBG pCO2 56 mmHg; VBG pH 7.33 (7.32-7.43); VBG pO2 78 mmHg
[2023-03-14 08:52] LABS: Prothrombin Time 12.1 SEC (11.1-13.3)
[2023-03-14 08:57] LABS: Ammonia 40 umol/L (13-55)
[2023-03-14 09:01] LABS: Lactic Acid 0.8 mmol/L (0.5-2.0)
[2023-03-14 09:04] LABS: Alanine Aminotransferase 28 U/L (0-40); Alkaline Phosphatase 107 U/L (39-117); Anion Gap 10 (12-20); Aspartate Amino Transferase 21 U/L (5-37); Bilirubin Direct < 0.2 mg/dL (0.0-0.5); Bilirubin Total 0.2 mg/dL (0.0-1.0); Blood Urea Nitrogen 17 mg/dL (9-16); Calcium 9.6 mg/dL (8.4-10.2); Carbon Dioxide 27 mmol/L (22-29); Chloride 107 mmol/L (96-108); Creatinine Clr Calc Pharmacy 136.2; Estimated Glomerular Filt Rate > 60; Glucose Random 99 mg/dL (60-115); Magnesium 2.1 mg/dL (1.6-2.6); Potassium 3.7 mmol/L (3.3-5.1); Sodium 140 mmol/L (135-145); Total Protein 7.1 g/dL (6.5-8.0)
[2023-03-14 09:09] LABS: Troponin-I High Sensitivity < 2.7 ng/L (<3.5-35.0)
[2023-03-14 09:14] LABS: Appearance Urine Turbid; Color Urine Yellow; Glucose Urine UA Negative (Negative); Leukocyte Esterase Urine Large (3+) (Negative); Nitrite Urine Negative (Negative); UMIC TRIGGER UACC YES; Urine Blood Negative (Negative); Urine Ketones Negative (Negative); Urine Protein Negative (Neg-Trace)
[2023-03-14] MEDS: 0.9 % Sodium Chloride 1,000 ML 999 ML IVCONT ×2 (09:18→17:17)
[2023-03-14] MEDS: levoFLOXacin/D5W 750 MG/150 ML PIGGYBACK 100 MG IV (09:19)
[2023-03-14 09:27] LABS: Bacteria Urine 4+ (None Seen); Hyaline Casts Urine 0-2 /LPF (0-2); RBC Urine 0-2 /HPF (0-2); Squamous Epithelial Cell Urine 0-2 /HPF (0-2); UACC Culture Trigger YES; WBC Urine >50 /HPF (0-5)
[2023-03-14 09:31] LABS: Amphetamine Screen Urine Not Detected (Not Detect); Barbiturates, Urine Not Detected (Not Detect); Benzodiazepines Screen Urine Not Detected (Not Detect); Cannabinoid Screen Urine Not Detected (Not Detect); Cocaine Screen Urine Not Detected (Not Detect); Fentanyl, urine Not Detected (Not Detect); Opiate Screen Urine Not Detected (Not Detect); Phencyclidine Screen Urine Not Detected (Not Detect)
[2023-03-14 09:34] LABS: Influenza A PCR NEGATIVE (Negative); Influenza B PCR NEGATIVE (Negative); Resp Syncy Virus RNA Qual PCR NEGATIVE (Negative); SARS COV2 PCR INHOUSE NEGATIVE (Negative)
[2023-03-14 11:07] LABS: Cortisol Random 6.7 ug/dL
--- NOTE | 2023-03-14 14:21 | PHA.MEDREC ---
Pharmacy Consult ? Medication Reconciliation Pharmacy has completed the medication reconciliation. Patient came from [facility] with medications list. Carol Rodriguez, [facility]
--- NOTE | 2023-03-14 15:01 | P.HPHOSP_ITS ---
History of Present Illness Date of Service: 03/14/23 Attending physician on admission: [facility] Chief Complaint: ams 57-year-old male With history of frontotemporal neuro cognitive disorder, depression, seizures, history of obstructive uropathy, schizoaffective disorder, constipation, BPH, COPD, dysphagia, ataxia, HTN, anoxic brain injury, hepatitis- C, anemia, polyneuropathy who presents to the ER via EMS from long-term [facility] for evaluation of altered mental status. Per SNF staff, pt is usually awake, alert, and conversant though requires assistance with ADLs. This morning, the patient become poorly responsive with snoring respirations, bradycardic to the 40s. Per EMS, on arrival was responsive to sternal rub only, bradycardic in the 40s, VS otherwise stable. There is no witnessed seizure activity. Apparently was complaining of mild abdominal discomfort yesterday and had a KUB ordered which showed mild constipation but no other abnormality. SNF denied any trauma. He is not on anticoagulation. While in the ED, patient initially altered responsive only to sternal rub and groaning with core temperature of 90 degrees. Thermometer Reynolds catheter was placed. He was also still noted to be bradycardic in the 40s with sinus rhythm . He was given Narcan without response. Placed under a Deidra Hugger with gradual improvement in temperature to 95.4 on admission. Heart rate also improved as temperature improved to 71 on admission. Blood pressure stable. There is a leukopenia of 3.3. Renal function normal, electrolyte levels normal. Troponin undetectable, random cortisol normal ammonia level norm. Urinalysis with 3+ leukocytes, negative nitrites, negative blood, positive urinary sediment, 4+ bacteria. Urine drug screen negative. Negative for COVID-19, RSV, influenza. Head CT negative for any acute intracranial abnormality shows left base atelectasis with elevated left hemidiaphragm but no other acute cardiopulmonary abnormality. In the ED, given 750 mg IV Levaquin (patient does have allergy to cephalosporins with unknown reaction). He was also given 1 L IV NS. ON LICENSE OF [facility] Medical History (Updated 03/14/23 @ 13:23 by NICOLE Davis) Encephalopathy, unspecified Essential (primary) hypertension Ataxic gait Obstructive sleep apnea (adult) (pediatric) Chronic obstructive pulmonary disease, unspecified Anoxic brain damage, not elsewhere classified Retention of urine, unspecified Benign prostatic hyperplasia without lower urinary tract symptoms Constipation, unspecified Seborrheic dermatitis, unspecified Cramp and spasm Hyperlipidemia, unspecified Unspecified convulsions Major depressive disorder, recurrent, unspecified Schizoaffective disorder, unspecified Social History (Updated 01/24/23 @ 13:50 by Fariha Lance PA-C) Household Members: Unknown / Unable to assess Household Members Other:: [facility] Patient Tobacco Use Status: Never used Tobacco Smoked in Last 30 Days: No Use of substances other than those prescribed or required for medical reasons: No Advance Directives: Yes Advance Directives Information Provided: No Advance Directives on File: No Meds Allergies Allergy/AdvReac Type Severity Reaction Status Date / Time Cephalosporins Allergy Unknown Verified 06/10/21 16:50 Active Medications: Current Medications Acetaminophen (Acetaminophen 325 Mg Tablet) 650 mg PO Q6H PRN PRN Reason: Pain, Mild (Pain Scale 1-3) Acetaminophen (Acetaminophen 325 Mg Tablet) 650 mg PO Q6H PRN PRN Reason: PAIN OR FEVER Albuterol Sulfate (Albuterol Sulfate 90 Mcg 8 Gm Inhaler) 2 puff INHALE Q6H PRN PRN Reason: Shortness Of Breath Or Wheezing Baclofen (Baclofen 10 Mg Tablet) 15 mg PO Q8H [facility] Docusate Sodium (Docusate Sodium 100 Mg Capsule) 100 mg PO DAILY PRN PRN Reason: Constipation Enoxaparin Sodium (Enoxaparin Sodium 40 Mg/0.4 Ml Syringe) 40 mg SUBCUT Q24H [facility] Sodium Chloride (Ns) 1,000 mls @ 80 mls/hr IVCONT .[id number] [facility] Levofloxacin (Levaquin) 750 mg in 150 mls @ 100 mls/hr IV Q24H [facility] Non-Formulary Medication (Artificial Tear(Oxlgb-Wco-Ncc)) 2 drop EYE-LEFT TID [facility] Ondansetron HCl (Ondansetron Hcl 4 Mg/2 Ml Vial) 4 mg IVPUSH Q8H PRN PRN Reason: Nausea and Vomiting Sodium Chloride (0.9 % Sodium Chloride Flush 3 Ml Syringe) 3 ml IVFLUSH QSHIFT [facility] Home Medications Medication Instructions Recorded Confirmed Last Taken Type CPAP 01/19/23 01/24/23 Unknown History baclofen 5 mg tablet 15 mg PO Q8H 01/19/23 03/14/23 Unknown History bisacodyl 10 mg rectal suppository 10 mg [place] DAILY PRN Constipation 01/19/23 03/14/23 Unknown History (Dulcolax (bisacodyl)) cetirizine 10 mg capsule (Zyrtec) 10 mg PO BEDTIME 01/19/23 03/14/23 Unknown History fluoxetine 20 mg capsule 20 mg PO DAILY 01/19/23 03/14/23 Unknown History fluticasone furoate 100 1 inh inhalation DAILY 01/19/23 03/14/23 Unknown History mcg-vilanterol 25 mcg/dose inhalation powder (Breo Ellipta) ipratropium 0.5 mg-albuterol 3 mg 3 ml inhalation Q6H PRN Shortness 01/19/23 03/14/23 Unknown History (2.5 mg base)/3 mL nebulization Of Breath soln magnesium hydroxide 400 mg/5 mL 5 ml PO DAILY PRN Constipation 01/19/23 03/14/23 Unknown History oral suspension (Milk of Magnesia) polyethylene glycol 3350 17 17 g PO DAILY 01/19/23 03/14/23 Unknown History gram/dose oral powder (Miralax) sennosides 8.6 mg capsule (senna) 17.2 mg PO BEDTIME 01/19/23 03/14/23 Unknown History tamsulosin 0.4 mg capsule 0.4 mg PO BEDTIME 01/19/23 03/14/23 Unknown History tizanidine 2 mg capsule 10 mg PO BEDTIME 01/19/23 03/14/23 Unknown History acetaminophen 325 mg tablet 650 mg PO Q6H PRN PAIN OR FEVER 03/14/23 03/14/23 Unknown History albuterol sulfate 90 mcg/actuation 2 puff inhalation Q6H PRN 03/14/23 03/14/23 Unknown History aerosol inhaler Shortness Of Breath Or Wheezing artificial 2 drp ophthalmic-Left TID 03/14/23 03/14/23 Unknown History tears(xbbkomw-lbuogyfc-gwcbwcn) 0.1 %-0.3 %-0.2 % eye drops carbamazepine 100 mg chewable 150 mg PO DAILY 03/14/23 03/14/23 Unknown History tablet carbamazepine 100 mg chewable 300 mg PO BEDTIME 03/14/23 03/14/23 Unknown History tablet cholecalciferol (vitamin D3) 1,250 1,250 mcg PO QMONTH 03/14/23 03/14/23 03/06/23 History mcg (50,000 unit) capsule (Optimal D3) docusate sodium 100 mg tablet 100 mg PO BID 03/14/23 03/14/23 Unknown History finasteride 5 mg tablet 5 mg PO DAILY 03/14/23 03/14/23 Unknown History ketoconazole 2 % topical cream 1 appl topical BID 03/14/23 03/14/23 Unknown History Physical Exam 2 Vital Signs and Narrative: Vital Signs: Last Vital Signs Temp 95.4 F L 03/14/23 14:08 Pulse 66 03/14/23 14:08 Resp 12 03/14/23 14:08 BP 101/56 L 03/14/23 14:08 Pulse Ox 93 03/14/23 14:08 O2 Del Method Nasal Cannula 03/14/23 14:08 O2 Flow Rate 1.5 03/14/23 14:08 BMI result Body Mass Index 33.9 Constitutional - Awake and Alert, No apparent distress Eyes - PERRLA, EOMI Cardiovascular - S1S2, RRR, 1+ edema Respiratory - Normal lung expansion, Normal respiratory effort, No respiratory distress, CTA bilaterally Gastrointestinal - NT / ND; +BS; No rebound or guarding Extremities - no calf tenderness bilaterally, no swelling Skin - Warm/Dry Neurological - Alert & oriented to self only, minimally conversive and speaking nonsensically, unable to follow commands Psychological - Appropriate affect Results Labs 03/14/23 08:33 03/14/23 08:33 Labs: Laboratory Results - last 24 hr 03/14/23 03/14/23 03/14/23 08:17 08:33 08:35 MCV 91.1 MCH 31.2 MCHC 34.3 RDW 12.1 Plt Count 196 MPV 9.3 L Immature Gran % (Auto) 1.2 H Neut % (Auto) 52.4 Lymph % (Auto) 23.7 Giles % (Auto) 16.9 H Eos % (Auto) 5.2 H Baso % (Auto) 0.6 Lymph # (Auto) 0.8 L Giles # (Auto) 0.6 Eos # (Auto) 0.2 Baso # (Auto) 0.0 Abs Immat Gran (auto) 0.04 H Absolute Neuts (auto) 1.7 L Absolute Nucleated RBC 0.000 Nucleated RBC % (auto) 0.0 PT 12.1 INR 1.0 APTT 35.0 VBG pH VBG pCO2 VBG pO2 VBG HCO3 VBG O2 Saturation VBG Base Excess Anion Gap 10 L Estim Creat Clear Calc 136.2 Estimated GFR > 60 POC Glucose 110 Random Glucose 99 Lactic Acid 0.8 Calcium 9.6 Magnesium 2.1 Total Bilirubin 0.2 Direct Bilirubin < 0.2 AST 21 ALT 28 Alkaline Phosphatase 107 Ammonia 40 Total Protein 7.1 Albumin 4.0 TSH 2.20 Random Cortisol Urine Color Urine Appearance Urine pH Ur Specific [place] Urine Protein Urine Glucose (UA) Urine Ketones Urine Blood Urine Nitrite Ur Leukocyte Esterase Urine RBC Urine WBC Ur Squamous Epith Cells Urine Bacteria Hyaline Casts Urine Opiates Screen Urine Fentanyl Screen Ur Barbiturates Screen Ur Phencyclidine Scrn Ur Amphetamines Screen U Benzodiazepines Scrn Urine Cocaine Screen U Marijuana (THC) Screen Influenza Type A (PCR) Influenza Type B (PCR) RSV RNA Qual (PCR) SARS-CoV-2 RNA (RT-PCR) 03/14/23 03/14/23 03/14/23 08:36 08:45 09:01 MCV MCH MCHC RDW Plt Count MPV Immature Gran % (Auto) Neut % (Auto) Lymph % (Auto) Giles % (Auto) Eos % (Auto) Baso % (Auto) Lymph # (Auto) Giles # (Auto) Eos # (Auto) Baso # (Auto) Abs Immat Gran (auto) Absolute Neuts (auto) Absolute Nucleated RBC Nucleated RBC % (auto) PT INR APTT VBG pH 7.33 VBG pCO2 56 VBG pO2 78 VBG HCO3 30 H VBG O2 Saturation 94.0 VBG Base Excess 3.5 Anion Gap Estim Creat Clear Calc Estimated GFR POC Glucose Random Glucose Lactic Acid Calcium Magnesium Total Bilirubin Direct Bilirubin AST ALT Alkaline Phosphatase Ammonia Total Protein Albumin TSH Random Cortisol Urine Color Yellow Urine Appearance Turbid Urine pH 8.0 Ur Specific Sanford 1.010 Urine Protein Negative Urine Glucose (UA) Negative Urine Ketones Negative Urine Blood Negative Urine Nitrite Negative Ur Leukocyte Esterase Large (3+) H Urine RBC 0-2 Urine WBC >50 H Ur Squamous Epith Cells 0-2 Urine Bacteria 4+ Hyaline Casts 0-2 Urine Opiates Screen Not Detected Urine Fentanyl Screen Not Detected Ur Barbiturates Screen Not Detected Ur Phencyclidine Scrn Not Detected Ur Amphetamines Screen Not Detected U Benzodiazepines Scrn Not Detected Urine Cocaine Screen Not Detected U Marijuana (THC) Screen Not Detected Influenza Type A (PCR) NEGATIVE Influenza Type B (PCR) NEGATIVE RSV RNA Qual (PCR) NEGATIVE SARS-CoV-2 RNA (RT-PCR) NEGATIVE 03/14/23 10:25 MCV MCH MCHC RDW Plt Count MPV Immature Gran % (Auto) Neut % (Auto) Lymph % (Auto) Giles % (Auto) Eos % (Auto) Baso % (Auto) Lymph # (Auto) Giles # (Auto) Eos # (Auto) Baso # (Auto) Abs Immat Gran (auto) Absolute Neuts (auto) Absolute Nucleated RBC Nucleated RBC % (auto) PT INR APTT VBG pH VBG pCO2 VBG pO2 VBG HCO3 VBG O2 Saturation VBG Base Excess Anion Gap Estim Creat Clear Calc Estimated GFR POC Glucose Random Glucose Lactic Acid Calcium Magnesium Total Bilirubin Direct Bilirubin AST ALT Alkaline Phosphatase Ammonia Total Protein Albumin TSH Random Cortisol 6.7 Urine Color Urine Appearance Urine pH Ur Specific [place] Urine Protein Urine Glucose (UA) Urine Ketones Urine Blood Urine Nitrite Ur Leukocyte Esterase Urine RBC Urine WBC Ur Squamous Epith Cells Urine Bacteria Hyaline Casts Urine Opiates Screen Urine Fentanyl Screen Ur Barbiturates Screen Ur Phencyclidine Scrn Ur Amphetamines Screen U Benzodiazepines Scrn Urine Cocaine Screen U Marijuana (THC) Screen Influenza Type A (PCR) Influenza Type B (PCR) RSV RNA Qual (PCR) SARS-CoV-2 RNA (RT-PCR) Imaging Radiologist's Impressions: Impressions Chest X-Ray 03/14/23 09:59 IMPRESSION: Left base atelectasis with elevated left hemidiaphragm. Head CT 03/14/23 10:55 IMPRESSION: No acute intracranial pathology compared to 12/10/2022. Assessment and Plan (1) Acute UTI: Status: Acute (2) Sepsis: Status: Acute (3) Bradycardia: Status: Acute (4) Acute metabolic encephalopathy: Status: Acute Plan 57-year-old male With history of frontotemporal neuro cognitive disorder, depression, seizures, history of obstructive uropathy, schizoaffective disorder, constipation, BPH, COPD, dysphagia, ataxia, HTN, anoxic brain injury, hepatitis- C, anemia, polyneuropathy admitted for UTI with sepsis and metabolic encephalopathy. #Acute UTI with sepsis -leukopenic to 3.3, hypothermic to 90. Re warmed with Deidra Hugger with improvement in core body temperature to 95.4 -lactic acid normal, no evidence of end-organ damage, no hypotension. No severe sepsis/shock -IV levaquin 750mg daily due to cephalosporin allergy (initiated 03/14) -follow CBC, urine cultures, blood cultures # acute metabolic encephalopathy -has history anoxic brain injury but is typically alert, awake, and conversive -secondary to infection as above -head CT without any acute intracranial abnormality -cortisone level, TSH, ammonia level, renal function normal. VBG reassuring -keep NPO pending WEIGHT GUESSER evaluation or improvement in encephalopathy -monitor mentation # anoxic brain injury with frontal temporal neuro cognitive disorder and schizoaffective disorder -continue home meds # hypothermia- secondary to infection as above -continue Deidra Hugger, discontinue once core body temperature greater than 96 -monitor vital signs closely # sinus bradycardia -likely secondary to hypothermia -heart rate normalized on admission -keep on telemetry # unspecified seizure disorder -given NPO status, change Tegretol to Keppra 500 mg IV b.i.d. -resume Tegretol as mentation improves # hypertension -blood pressure soft -not on home antihypertensives at this time # COPD -no acute exacerbation -continue home inhalers, albuterol p.r.n. # dysphagia -NPO at this time due to encephalopathy, WEIGHT GUESSER evaluation pending # BPH -resume finasteride once mentation improves DVT prophylaxis-Lovenox Full code Patient requires inpatient stay at least 2 midnights for management of acute UTI with sepsis and metabolic encephalopathy requiring IV antibiotics, close monitoring of vital signs to prevent decompensation, and mentation monitoring Time Spent With Patient Time: Total time managing care of this patient today ____ minutes. Quality Stroke Does the patient have a stroke diagnosis?: No VTE Prior VTE?: No VTE Risk Level:: Medical - moderate - high VTE Device Contraindication: Treatment Not Indicated VTE Drug Contraindication: N/A - Med Ordered
[2023-03-14] MEDS: Enoxaparin Sodium 40 MG/0.4 ML SYRINGE SUBCUT (15:13)
[2023-03-14] MEDS: 0.9 % Sodium Chloride 1,000 ML 80 ML IVCONT ×2 (15:18→19:00)
--- NOTE | 2023-03-14 17:25 | PC.NURSE ---
pt core temp > 98, d/c sanjana hugger per provider verbal order, pt hypotensive, provider notified and 1L NS started at 999ml/hr per provider order. pt found sitting up in bed, awake, oriented to person, following commands, incontinent of small amount of stool, cleaned and repositioned in bed, watching TV. pt pending bed assignment.
--- NOTE | 2023-03-14 18:09 | PC.NURSE ---
attempted to call in RN-RN report to [facility] - nurse notified via [email or web address].
--- NOTE | 2023-03-14 18:29 | PC.NURSE ---
RN-RN report given to [facility], transport notified.
[2023-03-14] MEDS: levETIRAcetam in NaCl (iso-os) 500 MG/100 ML PIGGYBACK 400 MG IV (20:47)
[2023-03-14] MEDS: 0.9 % Sodium Chloride Flush 3 ML SYRINGE IVFLUSH (23:23)
[2023-03-14] MEDS: Artificial Tears 15 ML DROPS 2 DROP EYE-LEFT (23:23)
[2023-03-15 04:00] VITALS: BP 136/70; PULSE 59; RESP 16; TEMP 36.1; O2SAT 97
[2023-03-15 06:37] LABS: MANUAL DIFF FLAG NO
[2023-03-15 06:39] LABS: Basophils Percent Auto 0.5 % (0-2); Eosinophils Absolute Auto 0.2 X10*3/uL (0.0-0.4); Eosinophils Percent Auto 3.3 % (0-4); Hematocrit 38.6 % (42.0-52.0); Imm Gran Abs Auto 0.02 X10*3/uL (0.00-0.03); Imm Gran Pct Auto 0.3 % (0.0-0.4); Lymphocytes Absolute Auto 0.7 X10*3/uL (1.2-4.9); Lymphocytes Percent Auto 11.6 % (20-40); Mean Corpuscular HGB Conc 33.7 g/dl (31.0-36.0); Mean Corpuscular Hemoglobin 31.6 pg (27.0-33.0); Mean Corpuscular Volume 93.7 fL (80.0-98.0); Mean Platelet Volume 9.1 fL (9.4-12.4); Monocytes Absolute Auto 0.5 X10*3/uL (0.1-1.2); Monocytes Percent Auto 8.8 % (2-11); Neutrophils Absolute Auto 4.6 x10*3/uL (2.0-8.3); Neutrophils Percent Auto 75.5 % (45-73); Platelet Count 192 X10*3/uL (160-400); Red Blood Count 4.12 X10*6/uL (4.60-5.80); Red Cell Distribution Width 12.2 % (11.0-16.0)
[2023-03-15 06:54] LABS: Anion Gap 9 (12-20); Blood Urea Nitrogen 10 mg/dL (9-16); Calcium 8.9 mg/dL (8.4-10.2); Carbon Dioxide 26 mmol/L (22-29); Chloride 108 mmol/L (96-108); Estimated Glomerular Filt Rate > 60; Glucose Random 94 mg/dL (60-115); Potassium 4.2 mmol/L (3.3-5.1); Sodium 139 mmol/L (135-145)
[2023-03-15] MEDS: 0.9 % Sodium Chloride 1,000 ML 80 ML IVCONT (06:57)
--- NOTE | 2023-03-15 07:12 | HO.PM.IMPN ---
Subjective Subjective Date of Service: 03/15/23 Interval History: f/u on sepsis and metabolic encephalopathy d/t YESY doing better, no hypothermia, Physical Exam Vital Signs: Vital Signs: Last Vital Signs Temp 97.0 F 03/15/23 04:00 Pulse 59 03/15/23 04:00 Resp 16 03/15/23 04:00 BP 136/70 03/15/23 04:00 Pulse Ox 97 03/15/23 04:00 O2 Del Method Nasal Cannula 03/15/23 04:00 O2 Flow Rate 2 03/15/23 04:00 BMI result Body Mass Index 33.3 Constitutional - Awake and Alert, No apparent distress Eyes - PERRLA, EOMI Cardiovascular - S1S2, RRR, 1+ edema Respiratory - Normal lung expansion, Normal respiratory effort, No respiratory distress, CTA bilaterally Gastrointestinal - NT / ND; +BS; No rebound or guarding Extremities - no calf tenderness bilaterally, no swelling Skin - Warm/Dry Neurological - Alert & oriented to self only, minimally conversive and speaking nonsensically, unable to follow commands Psychological - Appropriate affect Objective Data Active Medications Acetaminophen (Acetaminophen 325 Mg Tablet) 650 mg PO Q6H PRN PRN Reason: Pain, Mild (Pain Scale 1-3) Acetaminophen (Acetaminophen 325 Mg Tablet) 650 mg PO Q6H PRN PRN Reason: PAIN OR FEVER Albuterol Sulfate (Albuterol Sulfate 90 Mcg 8 Gm Inhaler) 2 puff INHALE Q6H PRN PRN Reason: Shortness Of Breath Or Wheezing Albuterol/Ipratropium (Albuterol/Iprat 2.5/0.5mg 3 Ml Ampul.Neb) 3 ml INHALE Q6H PRN PRN Reason: Shortness Of Breath Artificial Tears (Artificial Tears 15 Ml Drops) 2 drop EYE-LEFT TID [facility] Stop: 03/16/23 21:01 Last Admin: 03/14/23 23:23 Dose: 2 drop Documented By: CHERYL Baclofen (Baclofen 10 Mg Tablet) 15 mg PO Q8H [facility] Last Admin: 03/15/23 06:34 Dose: Not Given Documented By: CHERYL Non-Admin Reason: NPO Bisacodyl (Bisacodyl 10 Mg Supp.Rect) 10 mg [place] DAILY PRN PRN Reason: Constipation Docusate Sodium (Docusate Sodium 100 Mg Capsule) 100 mg PO DAILY PRN PRN Reason: Constipation Docusate Sodium (Docusate Sodium 100 Mg Capsule) 100 mg PO BID [facility] Last Admin: 03/14/23 20:39 Dose: Not Given Documented By: CHERYL Non-Admin Reason: NPO Enoxaparin Sodium (Enoxaparin Sodium 40 Mg/0.4 Ml Syringe) 40 mg SUBCUT Q24H [facility] Last Admin: 03/14/23 15:13 Dose: 40 mg Documented By: ELLE Finasteride (Finasteride 5 Mg Tablet) 5 mg PO DAILY [facility] Fluoxetine HCl (Fluoxetine Hcl 20 Mg Capsule) 20 mg PO DAILY [facility] Fluticasone/Vilanterol (Fluticasone/Vilanterol 100/25 Blst.W.Dev) 1 puff INHALE RDAILY [facility] Sodium Chloride (Ns) 1,000 mls @ 80 mls/hr IVCONT .[id number] [facility] Last Admin: 03/15/23 06:57 Dose: 80 mls/hr Documented By: CHERYL Levofloxacin (Levaquin) 750 mg in 150 mls @ 100 mls/hr IV Q24H [facility] Levetiracetam (Keppra) 500 mg in 100 mls @ 400 mls/hr IV Q12H [facility] Last Infusion: 03/14/23 21:15 Dose: Infused Documented By: CHERYL Influenza Virus Vaccine (Flu Vacc [id number](6mos Up)/Pf 0.5 Ml Syringe) 0.5 ml IM .ONCE ONE Stop: 03/15/23 10:01 Loratadine (Loratadine 10 Mg Tablet) 10 mg PO BEDTIME [facility] Last Admin: 03/14/23 20:39 Dose: Not Given Documented By: CHERYL Non-Admin Reason: NPO Magnesium Hydroxide (Milk Of Magnesia 30 Ml Oral.Susp) 5 ml PO DAILY PRN PRN Reason: Constipation Ondansetron HCl (Ondansetron Hcl 4 Mg/2 Ml Vial) 4 mg IVPUSH Q8H PRN PRN Reason: Nausea and Vomiting Polyethylene Glycol (Polyethylene Glycol 3350 17 Gm Powd.Pack) 17 gm PO DAILY [facility] Senna (Sennosides 8.6 Mg Tablet) 17.2 mg PO BEDTIME [facility] Last Admin: 03/14/23 20:39 Dose: Not Given Documented By: CHERYL Non-Admin Reason: NPO Sodium Chloride (0.9 % Sodium Chloride Flush 3 Ml Syringe) 3 ml IVFLUSH QSHIFT [facility] Last Admin: 03/14/23 23:23 Dose: 3 ml Documented By: CHERYL Tamsulosin HCl (Tamsulosin Hcl 0.4 Mg Capsule) 0.4 mg PO BEDTIME [facility] Last Admin: 03/14/23 20:39 Dose: Not Given Documented By: CHERYL Non-Admin Reason: NPO Tizanidine HCl (Tizanidine Hcl 4 Mg Tablet) 10 mg PO BEDTIME [facility] Last Admin: 03/14/23 20:40 Dose: Not Given Documented By: CHERYL Non-Admin Reason: NPO Labs 03/15/23 06:27 03/15/23 06:27 Labs: Laboratory Results - last 24 hr 03/14/23 03/14/23 03/14/23 08:17 08:33 08:35 MCV 91.1 MCH 31.2 MCHC 34.3 RDW 12.1 Plt Count 196 MPV 9.3 L Immature Gran % (Auto) 1.2 H Neut % (Auto) 52.4 Lymph % (Auto) 23.7 [place] % (Auto) 16.9 H Eos % (Auto) 5.2 H Baso % (Auto) 0.6 Lymph # (Auto) 0.8 L [place] # (Auto) 0.6 Eos # (Auto) 0.2 Baso # (Auto) 0.0 Abs Immat Gran (auto) 0.04 H Absolute Neuts (auto) 1.7 L Absolute Nucleated RBC 0.000 Nucleated RBC % (auto) 0.0 PT 12.1 INR 1.0 APTT 35.0 VBG pH VBG pCO2 VBG pO2 VBG HCO3 VBG O2 Saturation VBG Base Excess Anion Gap 10 L Estim Creat Clear Calc 136.2 Estimated GFR > 60 POC Glucose 110 Random Glucose 99 Lactic Acid 0.8 Calcium 9.6 Magnesium 2.1 Total Bilirubin 0.2 Direct Bilirubin < 0.2 AST 21 ALT 28 Alkaline Phosphatase 107 Ammonia 40 Total Protein 7.1 Albumin 4.0 TSH 2.20 Random Cortisol Urine Color Urine Appearance Urine pH Ur Specific [place] Urine Protein Urine Glucose (UA) Urine Ketones Urine Blood Urine Nitrite Ur Leukocyte Esterase Urine RBC Urine WBC Ur Squamous Epith Cells Urine Bacteria Hyaline Casts Urine Opiates Screen Urine Fentanyl Screen Ur Barbiturates Screen Ur Phencyclidine Scrn Ur Amphetamines Screen U Benzodiazepines Scrn Urine Cocaine Screen U Marijuana (THC) Screen Influenza Type A (PCR) Influenza Type B (PCR) RSV RNA Qual (PCR) SARS-CoV-2 RNA (RT-PCR) 03/14/23 03/14/23 03/14/23 08:36 08:45 09:01 MCV MCH MCHC RDW Plt Count MPV Immature Gran % (Auto) Neut % (Auto) Lymph % (Auto) [place] % (Auto) Eos % (Auto) Baso % (Auto) Lymph # (Auto) [place] # (Auto) Eos # (Auto) Baso # (Auto) Abs Immat Gran (auto) Absolute Neuts (auto) Absolute Nucleated RBC Nucleated RBC % (auto) PT INR APTT VBG pH 7.33 VBG pCO2 56 VBG pO2 78 VBG HCO3 30 H VBG O2 Saturation 94.0 VBG Base Excess 3.5 Anion Gap Estim Creat Clear Calc Estimated GFR POC Glucose Random Glucose Lactic Acid Calcium Magnesium Total Bilirubin Direct Bilirubin AST ALT Alkaline Phosphatase Ammonia Total Protein Albumin TSH Random Cortisol Urine Color Yellow Urine Appearance Turbid Urine pH 8.0 Ur Specific [place] 1.010 Urine Protein Negative Urine Glucose (UA) Negative Urine Ketones Negative Urine Blood Negative Urine Nitrite Negative Ur Leukocyte Esterase Large (3+) H Urine RBC 0-2 Urine WBC >50 H Ur Squamous Epith Cells 0-2 Urine Bacteria 4+ Hyaline Casts 0-2 Urine Opiates Screen Not Detected Urine Fentanyl Screen Not Detected Ur Barbiturates Screen Not Detected Ur Phencyclidine Scrn Not Detected Ur Amphetamines Screen Not Detected U Benzodiazepines Scrn Not Detected Urine Cocaine Screen Not Detected U Marijuana (THC) Screen Not Detected Influenza Type A (PCR) NEGATIVE Influenza Type B (PCR) NEGATIVE RSV RNA Qual (PCR) NEGATIVE SARS-CoV-2 RNA (RT-PCR) NEGATIVE 03/14/23 03/15/23 10:25 06:27 MCV 93.7 MCH 31.6 MCHC 33.7 RDW 12.2 Plt Count 192 MPV 9.1 L Immature Gran % (Auto) 0.3 Neut % (Auto) 75.5 H Lymph % (Auto) 11.6 L [place] % (Auto) 8.8 Eos % (Auto) 3.3 Baso % (Auto) 0.5 Lymph # (Auto) 0.7 L [place] # (Auto) 0.5 Eos # (Auto) 0.2 Baso # (Auto) 0.0 Abs Immat Gran (auto) 0.02 Absolute Neuts (auto) 4.6 Absolute Nucleated RBC 0.000 Nucleated RBC % (auto) 0.0 PT INR APTT VBG pH VBG pCO2 VBG pO2 VBG HCO3 VBG O2 Saturation VBG Base Excess Anion Gap 9 L Estim Creat Clear Calc 135.0 Estimated GFR > 60 POC Glucose Random Glucose 94 Lactic Acid Calcium 8.9 D Magnesium Total Bilirubin Direct Bilirubin AST ALT Alkaline Phosphatase Ammonia Total Protein Albumin TSH Random Cortisol 6.7 Urine Color Urine Appearance Urine pH Ur Specific [place] Urine Protein Urine Glucose (UA) Urine Ketones Urine Blood Urine Nitrite Ur Leukocyte Esterase Urine RBC Urine WBC Ur Squamous Epith Cells Urine Bacteria Hyaline Casts Urine Opiates Screen Urine Fentanyl Screen Ur Barbiturates Screen Ur Phencyclidine Scrn Ur Amphetamines Screen U Benzodiazepines Scrn Urine Cocaine Screen U Marijuana (THC) Screen Influenza Type A (PCR) Influenza Type B (PCR) RSV RNA Qual (PCR) SARS-CoV-2 RNA (RT-PCR) Assessment and Plan (1) Acute UTI: Status: Acute (2) Sepsis: Status: Acute (3) Bradycardia: Status: Acute Plan 57-year-old male With history of frontotemporal neuro cognitive disorder, depression, seizures, history of obstructive uropathy, schizoaffective disorder, constipation, BPH, COPD, dysphagia, ataxia, HTN, anoxic brain injury, hepatitis-C, anemia, polyneuropathy admitted for UTI with sepsis and metabolic encephalopathy. #Acute UTI with sepsis, sepsis resolved. Cultures pending, continue -IV levaquin 750mg daily (initiated 03/14), cephalosporin allergy # acute metabolic encephalopathy d/t UTI and expected to return to baseline with treatment # hypothermia- secondary to infection as above--resolved # sinus bradycardia -likely secondary to hypothermia, resolved. # anoxic brain injury with frontal temporal neuro cognitive disorder and schizoaffective disorder -continue home meds # unspecified seizure disorder -given NPO status, change Tegretol to Keppra 500 mg IV b.i.d. -resume Tegretol as mentation improves # hypertension--not on meds # COPD -no acute exacerbation -continue home inhalers, albuterol p.r.n. # dysphagia -NPO at this time due to encephalopathy, WORKERS COMPENSATION SPECIALIST evaluation before feeding # BPH -resume finasteride once mentation improves DVT prophylaxis-Lovenox Full code Need for inpt: UTI, sepsis, needing IV Abx Time Spent With Patient Time: Total time managing care of this patient today ____ minutes. Quality Stroke Does the patient have a stroke diagnosis?: No VTE Prior VTE?: No VTE Risk Level:: Medical - moderate - high VTE Device Contraindication: Treatment Not Indicated VTE Drug Contraindication: N/A - Med Ordered
[2023-03-15 07:27] VITALS: BP 158/85; PULSE 51; RESP 18; TEMP 36.1; O2SAT 98
[2023-03-15] MEDS: 0.9 % Sodium Chloride Flush 3 ML SYRINGE IVFLUSH ×2 (09:41→20:34)
[2023-03-15] MEDS: Artificial Tears 15 ML DROPS 2 DROP EYE-LEFT ×3 (09:42→22:53)
[2023-03-15] MEDS: levETIRAcetam in NaCl (iso-os) 500 MG/100 ML PIGGYBACK 400 MG IV ×2 (09:47→20:18)
[2023-03-15] MEDS: levoFLOXacin/D5W 750 MG/150 ML PIGGYBACK 100 MG IV (10:26)
[2023-03-15 11:14] VITALS: BP 123/71; PULSE 80; RESP 20; TEMP 36.3; O2SAT 97
[2023-03-15 11:51] VITALS: BP 140/72; PULSE 62; RESP 18; TEMP 36.1; O2SAT 99
--- NOTE | 2023-03-15 11:52 | MHC.SL.SWA ---
Addendum entered and electronically signed by LUI Oliveira 03/15/23 14:41: Per MD, patient to go for imaging of abdomen and to start on clear liquid diet. Any diet advancement beyond clear liquids to be approved by MD. BIOMEDICAL EQUIPMENT TECH to continue to follow. Original Note: Speech Pathologist Impression: Oral Phase Dysphagia Risk of Aspiration Due to: Lethargy Reduced Cognition Weak Voice Dysphasia Diet Status: UPGRADE Liquid Consistency and Strategies for Safe Swallow: Liquid Intake Recommendation: Thin Liquid Intake Strategies: Small Sips Solid Food Consistency: Dietary Recommendations: Chopped/Advanced (NDD3) *Pending MD approval* Additional Modifications to Solid Foods: Moisten foods w/ sauce/gravy Oral Medication Intake: Crushed with Puree Please contact the pharmacy regarding appropriate crushable or liquid drug formulations that are available whenever modified delivery is recommended. Compensatory Strategies and Precautions to be Taken for Safe Swallow: Sitting Upright (90 deg) Small Bites and Sips Alternate Liquids/Solids Rate of Ingestion Change Avoid Specific Foods Supervision While Eating and Drinking for Safe Swallow: Total Assistance (1:1) Foods to Avoid: Avoid dry, sticky, and tough to chew foods Swallowing Recommended Treatments: Compens. Strategy Educat. Recommendation for Speech: Outpatient Speech Therapy Inpatient Speech Therapy Speech Therapy through Rehab Facility Comment: Per [facility] RN, patient has hx of oral phase dysphagia however patient on unmodified diet textures w/ pills crushed in chocolate pudding. Per [facility], staff cuts up food for patient and maintains close supervision during meals. Recommend UPGRADE to THIN liquids and meds CRUSHED in PUREE. Recommend CHOPPED/ADVANCED solids (NDD3) pending clearance from MD. [facility] RN reports recent recommendation for clear liquid diet following KUB results showing large amount of stool in bowels. Notified MD and RN of BIOMEDICAL EQUIPMENT TECH's clinical swallow evaluation at bedside and reported KUB results per [facility]. Current diet recommendation (NDD3 vs. clear liquid diet) to be determined by MD. Recommend total supervision w/ assistance as needed. Patient demonstrated difficulty w/ independent cup sip presenting w/ tremor of hand and coughing w/ thin liquids, may require assistance moving nasal cannula bag or positioning straw to mouth during sips. Varnish Filterer Clinican/Clinical Fellow: No Supervisory Statement: I have reviewed and agree with the student/clinical fellow's documentation: No Speech Language Pathologist: Georgina Esquivel M.A., [facility]-BIOMEDICAL EQUIPMENT TECH
--- NOTE | 2023-03-15 13:10 | MHC.CM.PN ---
Pt admitted with dx UTI, sepsis, encephalopathy. Pt with baseline schizoaffective disorder, past TBI, and noted with confusion on H&P. This CM called and attempted to speak with pts guardian Shannon at [phone], no answer, and voicemail is full so unable to speak with her. Pt is from [facility] for LTC, Guardianship paper work requested from [facility]. D/C plan is likely for pt to return to [facility] via B[facility] when medically cleared. PCP: Mauro Jade
[2023-03-15] MEDS: Enoxaparin Sodium 40 MG/0.4 ML SYRINGE SUBCUT (15:17)
[2023-03-15 16:13] VITALS: BP 151/81; PULSE 81; RESP 18; TEMP 36.6; O2SAT 96
[2023-03-15 20:00] VITALS: BP 125/68; PULSE 59; RESP 18; TEMP 37.1; O2SAT 97
[2023-03-15] MEDS: Sennosides 8.6 MG TABLET 17.2 MG PO (20:00)
[2023-03-15] MEDS: TiZANidine HCL 4 MG TABLET 10 MG PO (20:19)
[2023-03-15] MEDS: Loratadine 10 MG TABLET PO (20:20)
[2023-03-15] MEDS: Tamsulosin HCL 0.4 MG CAPSULE PO (20:20)
[2023-03-15] MEDS: Docusate Sodium 100 MG CAPSULE PO (22:53)
[2023-03-16] VITALS (8 sets, daily range): BP systolic 103–179; BP diastolic 57–128; PULSE 45–79; RESP 16–20; TEMP 34.4–37.1; O2SAT 94–100
--- NOTE | 2023-03-16 00:03 | PM.EVENT ---
Event Note Date of Service: 03/16/23 Event Note: consider gastrograffin enema to rule out mass and will be therapeutic for constipation perhaps. Time Spent With Patient Time: Total time managing care of this patient today ____ minutes.
[2023-03-16] MEDS: 0.9 % Sodium Chloride 1,000 ML 80 ML IVCONT ×2 (01:06→15:17)
[2023-03-16] MEDS: Baclofen 10 MG TABLET 15 MG PO ×3 (06:51→22:03)
--- NOTE | 2023-03-16 07:21 | PC.NURSE ---
Addendum entered by Sara Hickman RN 03/16/23 07:22: difficult to understand d/t garbled speech. Temp 98.7 at 2000. Unable to obtain a oral/axillary/temporal temp at midnight. Pt. refused warm blanket or rectal temp at that time. Pt. Sbrady 45-50s on manager monitoring. Pt. asymptomatic. Reported to Dr. Odom with no new orders received. Pts rectal temp at 0400 was 94.0-pt. cont. to refuse blankets warm of any kind. Dr. Odom updated. Sz. pads in place. no sx's of seizures overnight. Bed alarm in use. Original Note: Patient alert and oriented to place and self/person. Pt. able to make most needs known but speech difficut
[2023-03-16] MEDS: Fluticasone/Vilanterol 100/25 BLST.W.DEV 1 PUFF INHALE (07:40)
--- NOTE | 2023-03-16 08:19 | PM.CNGS ---
History of Present Illness Consult details Consult date: 03/16/23 Requesting physician: Shakeel Levi Narrative: 57-year-old male patient with multiple medical problems admitted to the hospitalist service for altered mental status being evaluated for chronic constipation. Patient has a history of frontal temporal neuro cognitive disorder, depression, seizures, obstructive uropathy, schizoaffective disorder, constipation, BPH, COPD, dysphagia, ataxia, hypertension, anoxic brain injury, hepatitis-C, anemia, polyneuropathy and is a resident of snf facility. Patient was transported to the emergency department after found to be poorly responsive with bradycardia With heart rates in the 40s. He was also found to be hypothermic. A CT abdomen and pelvis was obtained which revealed a large stool burden in the rectum suggestive of chronic constipation, fecal impaction. The patient reports that he takes MiraLax daily and his last bowel movement was yesterday. He denies any abdominal pain, nausea or vomiting. Review of Systems Review of Systems: Yes Unobtainable due to mental condition PMFSH Past Medical History Medical History Encephalopathy, unspecified Essential (primary) hypertension Ataxic gait Obstructive sleep apnea (adult) (pediatric) Chronic obstructive pulmonary disease, unspecified Anoxic brain damage, not elsewhere classified Retention of urine, unspecified Benign prostatic hyperplasia without lower urinary tract symptoms Constipation, unspecified Seborrheic dermatitis, unspecified Cramp and spasm Hyperlipidemia, unspecified Unspecified convulsions Major depressive disorder, recurrent, unspecified Schizoaffective disorder, unspecified Social History Social History Household Members: Unknown / Unable to assess Household Members Other:: [facility] Housing: Other Housing Other:: [facility] Do you presently have visiting nurse or other home services: Yes Unable to assess alcohol history related to: Unknown Patient Tobacco Use Status: Tobacco use Unknown Smoked in Last 30 Days: No Patient Interested in Nicotine Replacement: No Patient Given Instructions on How to Stop Smoking: No Second Hand Smoke Exposure: No Use of substances other than those prescribed or required for medical reasons: Unknown Currently Displaying Signs/Symptoms of Drug Intoxication Withdrawal: No Have you been hit, kicked, punched, or otherwise hurt by someone within the past year? If so, by whom?: No Do you feel safe in your current relationship?: No Current Relationship Is there a partner from a previous relationship who is making you feel unsafe now?: No Are you made to feel afraid or neglected: No Advance Directives: No (document will not sign if yes is checked,) Advance Directives Information Provided: No Advance Directives on File: No Do you have thoughts of harming others: None Do you have a plan to hurt others: No Plan Recently lost weight without trying: Unsure Eating poorly because of decreased appetite: No Nutrition Risks: On aspiration precautions service: No Meds Allergies Allergy/AdvReac Type Severity Reaction Status Date / Time Cephalosporins Allergy Unknown Verified 06/10/21 16:50 Active Medications: Current Medications Acetaminophen (Acetaminophen 325 Mg Tablet) 650 mg PO Q6H PRN PRN Reason: Pain, Mild (Pain Scale 1-3) Acetaminophen (Acetaminophen 325 Mg Tablet) 650 mg PO Q6H PRN PRN Reason: PAIN OR FEVER Albuterol Sulfate (Albuterol Sulfate 90 Mcg 8 Gm Inhaler) 2 puff INHALE Q6H PRN PRN Reason: Shortness Of Breath Or Wheezing Albuterol/Ipratropium (Albuterol/Iprat 2.5/0.5mg 3 Ml Ampul.Neb) 3 ml INHALE Q6H PRN PRN Reason: Shortness Of Breath Artificial Tears (Artificial Tears 15 Ml Drops) 2 drop EYE-LEFT TID [facility] Stop: 03/16/23 21:01 Last Admin: 03/15/23 22:53 Dose: 2 drop Baclofen (Baclofen 10 Mg Tablet) 15 mg PO Q8H [facility] Last Admin: 03/16/23 06:51 Dose: 15 mg Bisacodyl (Bisacodyl 10 Mg Supp.Rect) 10 mg [place] DAILY PRN PRN Reason: Constipation Docusate Sodium (Docusate Sodium 100 Mg Capsule) 100 mg PO DAILY PRN PRN Reason: Constipation Docusate Sodium (Docusate Sodium 100 Mg Capsule) 100 mg PO BID [facility] Last Admin: 03/15/23 22:53 Dose: 100 mg Enoxaparin Sodium (Enoxaparin Sodium 40 Mg/0.4 Ml Syringe) 40 mg SUBCUT Q24H [facility] Last Admin: 03/15/23 15:17 Dose: 40 mg Finasteride (Finasteride 5 Mg Tablet) 5 mg PO DAILY [facility] Last Admin: 03/15/23 09:43 Dose: Not Given Fluoxetine HCl (Fluoxetine Hcl 20 Mg Capsule) 20 mg PO DAILY [facility] Last Admin: 03/15/23 09:43 Dose: Not Given Fluticasone/Vilanterol (Fluticasone/Vilanterol 100/25 Blst.W.Dev) 1 puff INHALE RDAILY [facility] Last Admin: 03/16/23 07:40 Dose: 1 puff Sodium Chloride (Ns) 1,000 mls @ 80 mls/hr IVCONT .[id number] [facility] Last Admin: 03/16/23 01:06 Dose: 80 mls/hr Levofloxacin (Levaquin) 750 mg in 150 mls @ 100 mls/hr IV Q24H [facility] Last Infusion: 03/15/23 12:02 Dose: Infused Levetiracetam (Keppra) 500 mg in 100 mls @ 400 mls/hr IV Q12H [facility] Last Infusion: 03/15/23 20:25 Dose: 0 mls/hr Loratadine (Loratadine 10 Mg Tablet) 10 mg PO BEDTIME [facility] Last Admin: 03/15/23 20:20 Dose: 10 mg Magnesium Hydroxide (Milk Of Magnesia 30 Ml Oral.Susp) 5 ml PO DAILY PRN PRN Reason: Constipation Ondansetron HCl (Ondansetron Hcl 4 Mg/2 Ml Vial) 4 mg IVPUSH Q8H PRN PRN Reason: Nausea and Vomiting Polyethylene Glycol (Polyethylene Glycol 3350 17 Gm Powd.Pack) 17 gm PO DAILY [facility] Last Admin: 03/15/23 09:43 Dose: Not Given Senna (Sennosides 8.6 Mg Tablet) 17.2 mg PO BEDTIME [facility] Last Admin: 03/15/23 20:00 Dose: 17.2 mg Sodium Chloride (0.9 % Sodium Chloride Flush 3 Ml Syringe) 3 ml IVFLUSH QSHIFT [facility] Last Admin: 03/15/23 20:34 Dose: 3 ml Tamsulosin HCl (Tamsulosin Hcl 0.4 Mg Capsule) 0.4 mg PO BEDTIME [facility] Last Admin: 03/15/23 20:20 Dose: 0.4 mg Tizanidine HCl (Tizanidine Hcl 4 Mg Tablet) 10 mg PO BEDTIME [facility] Last Admin: 03/15/23 20:19 Dose: 10 mg Home Medications Medication Instructions Recorded Confirmed Last Taken Type CPAP 01/19/23 01/24/23 Unknown History baclofen 5 mg tablet 15 mg PO Q8H 01/19/23 03/14/23 Unknown History bisacodyl 10 mg rectal suppository 10 mg [place] DAILY PRN Constipation 01/19/23 03/14/23 Unknown History (Dulcolax (bisacodyl)) cetirizine 10 mg capsule (Zyrtec) 10 mg PO BEDTIME 01/19/23 03/14/23 Unknown History fluoxetine 20 mg capsule 20 mg PO DAILY 01/19/23 03/14/23 Unknown History fluticasone furoate 100 1 inh inhalation DAILY 01/19/23 03/14/23 Unknown History mcg-vilanterol 25 mcg/dose inhalation powder (Breo Ellipta) ipratropium 0.5 mg-albuterol 3 mg 3 ml inhalation Q6H PRN Shortness 01/19/23 03/14/23 Unknown History (2.5 mg base)/3 mL nebulization Of Breath soln magnesium hydroxide 400 mg/5 mL 5 ml PO DAILY PRN Constipation 01/19/23 03/14/23 Unknown History oral suspension (Milk of Magnesia) polyethylene glycol 3350 17 17 g PO DAILY 01/19/23 03/14/23 Unknown History gram/dose oral powder (Miralax) sennosides 8.6 mg capsule (senna) 17.2 mg PO BEDTIME 01/19/23 03/14/23 Unknown History tamsulosin 0.4 mg capsule 0.4 mg PO BEDTIME 01/19/23 03/14/23 Unknown History tizanidine 2 mg capsule 10 mg PO BEDTIME 01/19/23 03/14/23 Unknown History acetaminophen 325 mg tablet 650 mg PO Q6H PRN PAIN OR FEVER 03/14/23 03/14/23 Unknown History albuterol sulfate 90 mcg/actuation 2 puff inhalation Q6H PRN 03/14/23 03/14/23 Unknown History aerosol inhaler Shortness Of Breath Or Wheezing artificial 2 drp ophthalmic-Left TID 03/14/23 03/14/23 Unknown History tears(jzcewqm-zmwhhlup-kzbgich) 0.1 %-0.3 %-0.2 % eye drops carbamazepine 100 mg chewable 150 mg PO DAILY 03/14/23 03/14/23 Unknown History tablet carbamazepine 100 mg chewable 300 mg PO BEDTIME 03/14/23 03/14/23 Unknown History tablet cholecalciferol (vitamin D3) 1,250 1,250 mcg PO QMONTH 03/14/23 03/14/23 03/06/23 History mcg (50,000 unit) capsule (Optimal D3) docusate sodium 100 mg tablet 100 mg PO BID 03/14/23 03/14/23 Unknown History finasteride 5 mg tablet 5 mg PO DAILY 03/14/23 03/14/23 Unknown History ketoconazole 2 % topical cream 1 appl topical BID 03/14/23 03/14/23 Unknown History Physical Exam Vital Signs: Vital Signs: Last Vital Signs Temp 97.4 F 03/16/23 07:26 Pulse 54 03/16/23 07:41 Resp 16 03/16/23 07:41 BP 158/71 H 03/16/23 07:26 Pulse Ox 96 03/16/23 07:26 O2 Del Method Nasal Cannula 03/16/23 07:26 O2 Flow Rate 2 03/16/23 07:26 BMI result Body Mass Index 33.3 Const: General: comfortable, alert and awake Nutritional Appearance: well nourished HEENT: Head: Yes normocephalic and Yes atraumatic Resp: Effort & Inspection: normal respiratory effort, no audible wheezes, no cough and no respiratory distress GI: Inspection: Yes normal to inspection Palpation (GI): Soft to palpation, nontender, no guarding and not rigid Percussion: Yes normal to percussion Auscultation: normal bowel sounds Skin: Other: Psoriasis noted on face Extrem: General: Yes no clubbing, cyanosis or edema Results Labs 03/15/23 06:27 03/15/23 06:27 Labs: Urine 03/14/23 Range/Units 09:01 Urine Color Yellow Urine Appearance Turbid Urine pH 8.0 (5.0-9.0) Ur Specific [place] 1.010 (1.005-1.025) Urine Protein Negative (Neg-Trace) mg/dL Urine Glucose (UA) Negative (Negative) mg/dL All other labs normal. Imaging Abdomen CT scan report/results: image reviewed CT scan - pelvis: image reviewed Assessment and Plan (1) Constipation, chronic: Status: Acute Plan 57-year-old male patient with multiple medical problems admitted for mental status changes. The patient is currently awake and talking, denying abdominal pain nausea or vomiting. CT abdomen and pelvis is consistent with chronic constipation possibly a fecal impaction. The patient reports moving his bowels yesterday and normally takes MiraLax. Recommend restarting patient's regular medications including MiraLax, Senokot and Dulcolax. If there is no affect with this suggest soapsuds enema. I will monitor the patient's progress during his hospitalization. Time Spent With Patient Time: Total time managing care of this patient today ____ minutes. Procedures Date of Service Date of Service: 03/16/23
[2023-03-16] MEDS: levoFLOXacin/D5W 750 MG/150 ML PIGGYBACK 100 MG IV (08:55)
[2023-03-16] MEDS: levETIRAcetam in NaCl (iso-os) 500 MG/100 ML PIGGYBACK 400 MG IV ×2 (08:56→20:25)
[2023-03-16] MEDS: Finasteride 5 MG TABLET PO (08:56)
[2023-03-16] MEDS: Docusate Sodium 100 MG CAPSULE PO ×2 (08:56→20:26)
[2023-03-16] MEDS: FLUoxetine HCl 20 MG CAPSULE PO (08:56)
[2023-03-16] MEDS: Artificial Tears 15 ML DROPS 2 DROP EYE-LEFT ×3 (08:57→22:04)
[2023-03-16] MEDS: polyethylene glycoL 3350 17 GM POWD.PACK PO (08:57)
[2023-03-16] MEDS: 0.9 % Sodium Chloride Flush 3 ML SYRINGE IVFLUSH (08:57)
--- NOTE | 2023-03-16 09:23 | P.PNIM_ITS ---
Subjective Subjective Date of Service: 03/16/23 Interval History: f/u on sepsis and metabolic encephalopathy d/t YESY doing better, no hypothermia, had bowel movment overnight Physical Exam 2 Vital Signs: Vital Signs: Last Vital Signs Temp 97.4 F 03/16/23 07:26 Pulse 54 03/16/23 07:41 Resp 16 03/16/23 07:41 BP 158/71 H 03/16/23 07:26 Pulse Ox 96 03/16/23 07:26 O2 Del Method Nasal Cannula 03/16/23 07:26 O2 Flow Rate 2 03/16/23 07:26 BMI result Body Mass Index 33.3 Const: Other: Constitutional - Awake and Alert, No apparent distress Eyes - PERRLA, EOMI Cardiovascular - S1S2, RRR, 1+ edema Respiratory - Normal lung expansion, Normal respiratory effort, No respiratory distress, CTA bilaterally Gastrointestinal - NT / ND; +BS; No rebound or guarding Extremities - no calf tenderness bilaterally, no swelling Skin - Warm/Dry Neurological - Alert & oriented to self only, minimally conversive and speaking nonsensically, unable to follow commands Psychological - Appropriate affect Objective Data Active Medications Acetaminophen (Acetaminophen 325 Mg Tablet) 650 mg PO Q6H PRN PRN Reason: Pain, Mild (Pain Scale 1-3) Acetaminophen (Acetaminophen 325 Mg Tablet) 650 mg PO Q6H PRN PRN Reason: PAIN OR FEVER Albuterol Sulfate (Albuterol Sulfate 90 Mcg 8 Gm Inhaler) 2 puff INHALE Q6H PRN PRN Reason: Shortness Of Breath Or Wheezing Albuterol/Ipratropium (Albuterol/Iprat 2.5/0.5mg 3 Ml Ampul.Neb) 3 ml INHALE Q6H PRN PRN Reason: Shortness Of Breath Artificial Tears (Artificial Tears 15 Ml Drops) 2 drop EYE-LEFT TID [facility] Stop: 03/16/23 21:01 Last Admin: 03/16/23 08:57 Dose: 2 drop Documented By: TEVIN Baclofen (Baclofen 10 Mg Tablet) 15 mg PO Q8H [facility] Last Admin: 03/16/23 06:51 Dose: 15 mg Documented By: TERRELL Bisacodyl (Bisacodyl 10 Mg Supp.Rect) 10 mg [place] DAILY PRN PRN Reason: Constipation Docusate Sodium (Docusate Sodium 100 Mg Capsule) 100 mg PO DAILY PRN PRN Reason: Constipation Docusate Sodium (Docusate Sodium 100 Mg Capsule) 100 mg PO BID [facility] Last Admin: 03/16/23 08:56 Dose: 100 mg Documented By: TEVIN Enoxaparin Sodium (Enoxaparin Sodium 40 Mg/0.4 Ml Syringe) 40 mg SUBCUT Q24H [facility] Last Admin: 03/15/23 15:17 Dose: 40 mg Documented By: URBANO Finasteride (Finasteride 5 Mg Tablet) 5 mg PO DAILY [facility] Last Admin: 03/16/23 08:56 Dose: 5 mg Documented By: TEVIN Fluoxetine HCl (Fluoxetine Hcl 20 Mg Capsule) 20 mg PO DAILY [facility] Last Admin: 03/16/23 08:56 Dose: 20 mg Documented By: TEVIN Fluticasone/Vilanterol (Fluticasone/Vilanterol 100/25 Blst.W.Dev) 1 puff INHALE RDAILY [facility] Last Admin: 03/16/23 07:40 Dose: 1 puff Documented By: CAROLYN Sodium Chloride (Ns) 1,000 mls @ 80 mls/hr IVCONT .[id number] [facility] Last Admin: 03/16/23 01:06 Dose: 80 mls/hr Documented By: TERRELL Levofloxacin (Levaquin) 750 mg in 150 mls @ 100 mls/hr IV Q24H [facility] Last Admin: 03/16/23 08:55 Dose: 100 mls/hr Documented By: TEVIN Levetiracetam (Keppra) 500 mg in 100 mls @ 400 mls/hr IV Q12H [facility] Last Infusion: 03/16/23 09:21 Dose: Infused Documented By: TEVIN Loratadine (Loratadine 10 Mg Tablet) 10 mg PO BEDTIME [facility] Last Admin: 03/15/23 20:20 Dose: 10 mg Documented By: TERRELL Magnesium Hydroxide (Milk Of Magnesia 30 Ml Oral.Susp) 5 ml PO DAILY PRN PRN Reason: Constipation Ondansetron HCl (Ondansetron Hcl 4 Mg/2 Ml Vial) 4 mg IVPUSH Q8H PRN PRN Reason: Nausea and Vomiting Polyethylene Glycol (Polyethylene Glycol 3350 17 Gm Powd.Pack) 17 gm PO DAILY [facility] Last Admin: 03/16/23 08:57 Dose: 17 gm Documented By: TEVIN Senna (Sennosides 8.6 Mg Tablet) 17.2 mg PO BEDTIME [facility] Last Admin: 03/15/23 20:00 Dose: 17.2 mg Documented By: TERRELL Sodium Chloride (0.9 % Sodium Chloride Flush 3 Ml Syringe) 3 ml IVFLUSH QSHIFT [facility] Last Admin: 03/16/23 08:57 Dose: 3 ml Documented By: TEVIN Tamsulosin HCl (Tamsulosin Hcl 0.4 Mg Capsule) 0.4 mg PO BEDTIME [facility] Last Admin: 03/15/23 20:20 Dose: 0.4 mg Documented By: TERRELL Tizanidine HCl (Tizanidine Hcl 4 Mg Tablet) 10 mg PO BEDTIME [facility] Last Admin: 03/15/23 20:19 Dose: 10 mg Documented By: TERRELL Labs 03/15/23 06:27 03/15/23 06:27 Microbiology Microbiology Results: Microbiology 03/14/23 Unknown Urine Culture - Preliminary Urine Catheterized - Straight Catheter Gram negative eliecer 03/14/23 08:33 Blood Culture - Preliminary Blood - Venous No growth after 24 hours. 03/14/23 08:38 Blood Culture - Preliminary Blood - Venous No growth after 24 hours. Assessment and Plan (1) Acute UTI: Status: Acute (2) Sepsis: Status: Acute (3) Bradycardia: Status: Acute Plan 57-year-old male With history of frontotemporal neuro cognitive disorder, depression, seizures, history of obstructive uropathy, schizoaffective disorder, constipation, BPH, COPD, dysphagia, ataxia, HTN, anoxic brain injury, hepatitis- C, anemia, polyneuropathy admitted for UTI with sepsis and metabolic encephalopathy. #Acute UTI with sepsis, sepsis resolved. Cultures pending, continue -IV levaquin 750mg daily (initiated 03/14), cephalosporin allergy # acute metabolic encephalopathy d/t UTI and expected to return to baseline with treatment # hypothermia- secondary to infection as above--resolved # sinus bradycardia -likely secondary to hypothermia, resolved. # anoxic brain injury with frontal temporal neuro cognitive disorder and schizoaffective disorder -continue home meds #Constipation/obstipation--abdomen is less rigid, had some bowel movment overngith surgery consult, repeat abdominal xray # unspecified seizure disorder -given NPO status, change Tegretol to Keppra 500 mg IV b.i.d. -resume Tegretol as mentation improves # hypertension--not on meds # COPD -no acute exacerbation -continue home inhalers, albuterol p.r.n. 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 Quality Stroke Does the patient have a stroke diagnosis?: No VTE Prior VTE?: No VTE Risk Level:: Medical - moderate - high VTE Device Contraindication: Treatment Not Indicated VTE Drug Contraindication: N/A - Med Ordered
--- NOTE | 2023-03-16 12:31 | MHC.SPEECHCO ---
Pt remains on Clear Liquids per MD order. Please see previous recommendations for Chopped/Advanced (NDD3) Solids and Thin Liquids when diet is ready to be advanced. NEWSP[employer]ER STUFFER will continue to follow.
[2023-03-16] MEDS: Enoxaparin Sodium 40 MG/0.4 ML SYRINGE SUBCUT (15:17)
[2023-03-16] MEDS: Sennosides 8.6 MG TABLET 17.2 MG PO (20:26)
[2023-03-16] MEDS: Tamsulosin HCL 0.4 MG CAPSULE PO (20:26)
[2023-03-16] MEDS: Loratadine 10 MG TABLET PO (20:26)
[2023-03-16] MEDS: TiZANidine HCL 4 MG TABLET 10 MG PO (20:26)
[2023-03-17] VITALS (7 sets, daily range): BP systolic 111–154; BP diastolic 69–81; PULSE 53–89; RESP 15–20; TEMP 36.1–37.1; O2SAT 95–98
[2023-03-17] MEDS: Baclofen 10 MG TABLET 15 MG PO ×2 (06:08→15:31)
[2023-03-17] MEDS: Fluticasone/Vilanterol 100/25 BLST.W.DEV 1 PUFF INHALE (08:04)
[2023-03-17] MEDS: polyethylene glycoL 3350 17 GM POWD.PACK PO (08:36)
[2023-03-17] MEDS: levETIRAcetam in NaCl (iso-os) 500 MG/100 ML PIGGYBACK 400 MG IV ×2 (08:36→20:37)
[2023-03-17] MEDS: Docusate Sodium 100 MG CAPSULE PO ×2 (08:36→20:37)
[2023-03-17] MEDS: Finasteride 5 MG TABLET PO (08:36)
[2023-03-17] MEDS: FLUoxetine HCl 20 MG CAPSULE PO (08:36)
--- NOTE | 2023-03-17 08:42 | P.PNIM_ITS ---
Subjective Subjective Date of Service: 03/17/23 Interval History: no nausea or vomiting, no abdominal pain, has had bowel movement Physical Exam 2 Vital Signs: Vital Signs: Last Vital Signs Temp 97.6 F 03/17/23 08:00 Pulse 67 03/17/23 08:05 Resp 18 03/17/23 08:05 BP 154/70 H 03/17/23 08:00 Pulse Ox 95 03/17/23 08:00 O2 Del Method Nasal Cannula 03/17/23 08:00 O2 Flow Rate 2 03/17/23 08:00 BMI result Body Mass Index 33.3 Const: Other: General: AO X 2, no acute distress Resp: CTA bilateral CVS: S1,S2,RRR GI: +BS, NT, no distention Skin: No rash Neuro: motor grossly intact Psych: appropriate affect Objective Data Active Medications Acetaminophen (Acetaminophen 325 Mg Tablet) 650 mg PO Q6H PRN PRN Reason: Pain, Mild (Pain Scale 1-3) Acetaminophen (Acetaminophen 325 Mg Tablet) 650 mg PO Q6H PRN PRN Reason: PAIN OR FEVER Albuterol Sulfate (Albuterol Sulfate 90 Mcg 8 Gm Inhaler) 2 puff INHALE Q6H PRN PRN Reason: Shortness Of Breath Or Wheezing Albuterol/Ipratropium (Albuterol/Iprat 2.5/0.5mg 3 Ml Ampul.Neb) 3 ml INHALE Q6H PRN PRN Reason: Shortness Of Breath Baclofen (Baclofen 10 Mg Tablet) 15 mg PO Q8H [facility] Last Admin: 03/17/23 06:08 Dose: 15 mg Documented By: MILY Bisacodyl (Bisacodyl 10 Mg Supp.Rect) 10 mg [place] DAILY PRN PRN Reason: Constipation Docusate Sodium (Docusate Sodium 100 Mg Capsule) 100 mg PO DAILY PRN PRN Reason: Constipation Docusate Sodium (Docusate Sodium 100 Mg Capsule) 100 mg PO BID [facility] Last Admin: 03/17/23 08:36 Dose: 100 mg Documented By: TEVIN Enoxaparin Sodium (Enoxaparin Sodium 40 Mg/0.4 Ml Syringe) 40 mg SUBCUT Q24H [facility] Last Admin: 03/16/23 15:17 Dose: 40 mg Documented By: TEVIN Finasteride (Finasteride 5 Mg Tablet) 5 mg PO DAILY [facility] Last Admin: 03/17/23 08:36 Dose: 5 mg Documented By: TEVIN Fluoxetine HCl (Fluoxetine Hcl 20 Mg Capsule) 20 mg PO DAILY [facility] Last Admin: 03/17/23 08:36 Dose: 20 mg Documented By: TEVIN Fluticasone/Vilanterol (Fluticasone/Vilanterol 100/25 Blst.W.Dev) 1 puff INHALE RDAILY [facility] Last Admin: 03/17/23 08:04 Dose: 1 puff Documented By: JOSE Levofloxacin (Levaquin) 750 mg in 150 mls @ 100 mls/hr IV Q24H [facility] Last Infusion: 03/16/23 10:46 Dose: Infused Documented By: TEVIN Levetiracetam (Keppra) 500 mg in 100 mls @ 400 mls/hr IV Q12H [facility] Last Admin: 03/17/23 08:36 Dose: 400 mls/hr Documented By: TEVIN Loratadine (Loratadine 10 Mg Tablet) 10 mg PO BEDTIME [facility] Last Admin: 03/16/23 20:26 Dose: 10 mg Documented By: MILY Magnesium Hydroxide (Milk Of Magnesia 30 Ml Oral.Susp) 5 ml PO DAILY PRN PRN Reason: Constipation Ondansetron HCl (Ondansetron Hcl 4 Mg/2 Ml Vial) 4 mg IVPUSH Q8H PRN PRN Reason: Nausea and Vomiting Polyethylene Glycol (Polyethylene Glycol 3350 17 Gm Powd.Pack) 17 gm PO DAILY [facility] Last Admin: 03/17/23 08:36 Dose: 17 gm Documented By: TEVIN Senna (Sennosides 8.6 Mg Tablet) 17.2 mg PO BEDTIME [facility] Last Admin: 03/16/23 20:26 Dose: 17.2 mg Documented By: MILY Sodium Chloride (0.9 % Sodium Chloride Flush 3 Ml Syringe) 3 ml IVFLUSH QSHIFT [facility] Last Admin: 03/17/23 08:36 Dose: Not Given Documented By: TEVIN Non-Admin Reason: IV Running Tamsulosin HCl (Tamsulosin Hcl 0.4 Mg Capsule) 0.4 mg PO BEDTIME [facility] Last Admin: 03/16/23 20:26 Dose: 0.4 mg Documented By: MILY Tizanidine HCl (Tizanidine Hcl 4 Mg Tablet) 10 mg PO BEDTIME [facility] Last Admin: 03/16/23 20:26 Dose: 10 mg Documented By: MILY Labs 03/15/23 06:27 03/15/23 06:27 Microbiology Microbiology Results: Microbiology 03/14/23 Unknown Urine Culture - Final Urine Catheterized - Straight Catheter Proteus mirabilis 03/14/23 08:33 Blood Culture - Preliminary Blood - Venous No growth after 48 hours. 03/14/23 08:38 Blood Culture - Preliminary Blood - Venous No growth after 48 hours. Assessment and Plan (1) Acute UTI: Status: Acute (2) Sepsis: Status: Acute (3) Bradycardia: Status: Acute Plan 57-year-old male With history of frontotemporal neuro cognitive disorder, depression, seizures, history of obstructive uropathy, schizoaffective disorder, constipation, BPH, COPD, dysphagia, ataxia, HTN, anoxic brain injury, hepatitis- C, anemia, polyneuropathy admitted for UTI with sepsis and metabolic encephalopathy. #Acute UTI with sepsis, sepsis resolved. Cultures proteus, continue -IV levaquin 750mg daily (initiated 03/14), levaquin to po cephalosporin allergy # acute metabolic encephalopathy d/t UTI and expected to return to baseline with treatment # hypothermia- secondary to infection as above--resolved # sinus bradycardia -likely secondary to hypothermia, resolved. # anoxic brain injury with frontal temporal neuro cognitive disorder and schizoaffective disorder -continue home meds #Constipation/obstipation--abdomen is now soft, he has had bowel movment, advance diet # unspecified seizure disorder -given NPO status, change Tegretol to Keppra 500 mg IV b.i.d. -resume Tegretol as mentation improves # hypertension--not on meds # COPD -no acute exacerbation -continue home inhalers, albuterol p.r.n. 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 Quality Stroke Does the patient have a stroke diagnosis?: No VTE Prior VTE?: No VTE Risk Level:: Medical - moderate - high VTE Device Contraindication: Treatment Not Indicated VTE Drug Contraindication: N/A - Med Ordered
--- NOTE | 2023-03-17 14:55 | MHC.CM.PN ---
EMR reviewed and per MD rounds, pt is not medically cleared for D/C today, and will likely D/C back to [facility] tomorrow. CM will continue to follow.
[2023-03-17] MEDS: Acetaminophen 325 MG TABLET 650 MG PO (15:31)
[2023-03-17] MEDS: Enoxaparin Sodium 40 MG/0.4 ML SYRINGE SUBCUT (15:32)
--- NOTE | 2023-03-17 17:02 | MHC.SL.SWA ---
Speech Pathologist Impression: Risk of aspiration, oropharyngeal dysphagia Risk of Aspiration Due to: Lethargy Reduced Cognition Weak Voice Dysphasia Diet Status: No change Liquid Consistency and Strategies for Safe Swallow: Liquid Intake Recommendation: Thin Liquid Intake Strategies: Small Sips Solid Food Consistency: Dietary Recommendations: Chopped/Advanced (NDD3) Additional Modifications to Solid Foods: Continue w/ CHOPPED/ADVANCED (NDD3) diet and THIN liquids, pills CRUSHED in PUREE. Soft sandwiches from kitchenette (i.e. tuna, chicken salad) ok with assistance from nursing or LODGE SALES ASSOCIATE). Pt requires total 1:1 assistance feeding and strict aspiration precautions. Pt does tend to pocket food. Check oral cavity to ensure oral cavity is cleared before presenting more bites. Moisten food with sauces/gravies. Double swallow between bites, alternate bites of solids with sips of liquids. Oral Medication Intake: Crushed with Puree Please contact the pharmacy regarding appropriate crushable or liquid drug formulations that are available whenever modified delivery is recommended. Compensatory Strategies and Precautions to be Taken for Safe Swallow: Sitting Upright (90 deg) Double Swallow Small Bites and Sips Alternate Liquids/Solids Rate of Ingestion Change Oral Check Avoid Specific Foods Supervision While Eating and Drinking for Safe Swallow: Total Assistance (1:1) Foods to Avoid: Avoid dry, sticky, and tough to chew foods Swallowing Recommended Treatments: Compens. Strategy Educat. Recommendation for Speech: Outpatient Speech Therapy Inpatient Speech Therapy Speech Therapy through Rehab Facility Comment: Per [facility] RN, patient has hx of oral phase dysphagia however patient on unmodified diet textures w/ pills crushed in chocolate pudding. Per [facility], staff cuts up food for patient and maintains close supervision during meals. Flag Signaler Clinican/Clinical Fellow: No Supervisory Statement: I have reviewed and agree with the student/clinical fellow's documentation: No Speech Language Pathologist: Elizabeth Vera M.A., CCC-LODGE SALES ASSOCIATE
[2023-03-17] MEDS: TiZANidine HCL 4 MG TABLET 10 MG PO (20:36)
[2023-03-17] MEDS: Loratadine 10 MG TABLET PO (20:37)
[2023-03-17] MEDS: Sennosides 8.6 MG TABLET 17.2 MG PO (20:37)
[2023-03-17] MEDS: Tamsulosin HCL 0.4 MG CAPSULE PO (20:37)
[2023-03-17] MEDS: 0.9 % Sodium Chloride Flush 3 ML SYRINGE IVFLUSH (20:38)
[2023-03-18 00:18] VITALS: O2SAT 97
[2023-03-18 00:29] LABS: ABG Base Excess 5.4 mmol/L; ABG HCO3 32 mmol/L (22-26); ABG pCO2 56 mmHg (32-45); ABG pH 7.36 (7.35-7.45); ABG pO2 53 mmHg (83-108)
[2023-03-18 00:42] LABS: ABG Refer to POC result
[2023-03-18 01:02] LABS: Glucose, Whole Blood 92 mg/dL (60-115)
--- NOTE | 2023-03-18 02:37 | PC.NURSE ---
Assumed care of pt at 19:00 03/17. Pt Alert, watching tv on assessment, oriented x2 to self and place, pleasantly confused. Pt has significant neuro hx. Sz precautions in place. Speech garbled and difficult to make out at times, as has been documented and received in handoff. Pt denied complaints other than back pain for which he was repositioned and medicated with scheduled tizanidine as ordered. Lungs clear/dim bases, continues on 2L nc. Breathing even and unlabored without distress. Tolerated po meds crushed in pudding. 2300 hour: RN rounded to bedside and patient noted to be less responsive than initial assessment, responding only to painful stimuli (nail bed pressure, sternal rub). Vitals obtained, stable. POC obtained 92. +pp/cms. UOP via us cyu adequate amounts in bag. Scheduled baclofen held. Dr. Odom notified and ABG as well as stat head CT ordered and obtained. Handoff report given to RN at 02:00 03/18.
[2023-03-18 03:03] VITALS: BP 131/70; PULSE 92; RESP 16; TEMP 36.1; O2SAT 98
--- NOTE | 2023-03-18 06:41 | PM.EVENT ---
Event Note Date of Service: 03/18/23 Event Note: Overnight, nursing reported patient with decreased responsiveness. Obtained ABG which revealed chronic respiratory acidosis. CT head without any acute abnormality. Patient hemodynamically stable and responding to painful stimuli. Pupils reactive Time Spent With Patient Time: Total time managing care of this patient today ____ minutes.
[2023-03-18] MEDS: Fluticasone/Vilanterol 100/25 BLST.W.DEV 1 PUFF INHALE (07:35)
[2023-03-18 07:38] VITALS: PULSE 112; RESP 20; O2SAT 97
[2023-03-18 07:54] VITALS: BP 178/94; PULSE 73; RESP 13; TEMP 36.8; O2SAT 98
[2023-03-18] MEDS: polyethylene glycoL 3350 17 GM POWD.PACK PO (08:14)
[2023-03-18] MEDS: Baclofen 10 MG TABLET 15 MG PO (08:15)
[2023-03-18] MEDS: FLUoxetine HCl 20 MG CAPSULE PO (08:15)
[2023-03-18] MEDS: Finasteride 5 MG TABLET PO (08:15)
[2023-03-18] MEDS: 0.9 % Sodium Chloride Flush 3 ML SYRINGE IVFLUSH (08:16)
[2023-03-18] MEDS: levETIRAcetam in NaCl (iso-os) 500 MG/100 ML PIGGYBACK 400 MG IV (09:15)
--- NOTE | 2023-03-18 09:34 | P.DS_ITS ---
DS: Providers Provider Date of Service: 04/17/23 Date of admission: 03/14/23 14:52 Primary care physician: TAMIKO CRANE Consults: 03/15/23 17:32 Consult to General Surgery Routine Consulting Provider: [facility] General Surgeons Reason for consultation: Severe constipation and constipation Has provider been notified: No DS: Diagnosis Discharge Diagnosis (1) Acute UTI: Status: Acute (2) Sepsis: Status: Resolved (3) Bradycardia: Status: Resolved DS: Summary Hospital Course Hospital Course: Admission HPI Chief Complaint: ams 57-year-old male With history of frontotemporal neuro cognitive disorder, depression, seizures, history of obstructive uropathy, schizoaffective disorder, constipation, BPH, COPD, dysphagia, ataxia, HTN, anoxic brain injury, hepatitis- C, anemia, polyneuropathy who presents to the ER via EMS from [facility] for evaluation of altered mental status. Per SNF staff, pt is usually awake, alert, and conversant though requires assistance with ADLs. This morning, the patient become poorly responsive with snoring respirations, bradycardic to the 40s. Per EMS, on arrival was responsive to sternal rub only, bradycardic in the 40s, VS otherwise stable. There is no witnessed seizure activity. Apparently was complaining of mild abdominal discomfort yesterday and had a KUB ordered which showed mild constipation but no other abnormality. SNF denied any trauma. He is not on anticoagulation. While in the ED, patient initially altered responsive only to sternal rub and groaning with core temperature of 90 degrees. Thermometer Reynolds catheter was placed. He was also still noted to be bradycardic in the 40s with sinus rhythm . He was given Narcan without response. Placed under a Deidra Hugger with gradual improvement in temperature to 95.4 on admission. Heart rate also improved as temperature improved to 71 on admission. Blood pressure stable. There is a leukopenia of 3.3. Renal function normal, electrolyte levels normal. Troponin undetectable, random cortisol normal ammonia level norm. Urinalysis with 3+ leukocytes, negative nitrites, negative blood, positive urinary sediment, 4+ bacteria. Urine drug screen negative. Negative for COVID-19, RSV, influenza. Head CT negative for any acute intracranial abnormality shows left base atelectasis with elevated left hemidiaphragm but no other acute cardiopulmonary abnormality. In the ED, given 750 mg IV Levaquin (patient does have allergy to cephalosporins with unknown reaction). He was also given 1 L IV NS. Hospital course: Patient presented with altereed mental status and work up revealed hypothermia, bradycardia and found to have UTI with sepsis. He required warming blanket to treat hypothermia whichi is resolved, Sepsis and UTI was treated wtih IV Levaquin, culture came back with Proteus which is sensitive to Levaquin. Bradycardia which was attributed to Hypothermia has resolved. Clinical course was further complicated by severe constipation on top of his chronic constipation, he was continued on his usual bowel regimen and he has had multiple bowel movement and his abdomen is no longer distentended. He was also seen by surgery for this purpose and did not require intervention. Patient will be discharged with Levaquin to complete treatment for UTI and sepsis Time Spent with Patient Time attestation: Total time managing care of this patient today ____ minutes. Discharge coordination time: Greater than 30 minutes Quality: Safe Use of Opioids Does Pt have an Active Cancer Diagnosis on the Problem List?: No Quality: Stroke Does the patient have a stroke diagnosis?: No Physical Exam Vital Signs: Vital Signs: Last Vital Signs Temp 98.2 F 03/18/23 07:54 Pulse 73 03/18/23 07:54 Resp 13 03/18/23 07:54 BP 178/94 H 03/18/23 07:54 Pulse Ox 98 03/18/23 07:54 O2 Del Method Room Air 03/18/23 07:54 O2 Flow Rate 2 03/18/23 03:03 BMI result Body Mass Index 33.3 Const: Other: General: oriented to self, place, no acute distress Resp: CTA bilateral CVS: S1,S2,RRR GI: +BS, NT, no distention Skin: No rash Neuro: motor grossly intact Psych: appropriate affect DS: Data Data Completed and Pending Labs on day of discharge: Laboratory Results - last 24 hr 03/18/23 03/18/23 00:24 00:59 O2 Saturation 80.0 ABG pH at Pt Temp 7.36 ABG pCO2 at Pt Temp 56 H ABG pO2 at Pt Temp 53 L ABG HCO3 32 H ABG Base Excess (Actual) 5.4 POC Glucose 92 Preliminary micro results at discharge 03/14/23 08:33 Blood Culture - Preliminary Blood - Venous No growth after 48 hours. 03/14/23 08:38 Blood Culture - Preliminary Blood - Venous No growth after 48 hours. Discharge Plan Discharge Anticipated Discharge Date/Time: 03/18/23 09:29 Patient Disposition: Xfer SNF Discharge Diagnosis: Sepsis, UTI, metabolic encephalopathy, constipation Referrals: [facility] [Outside] - 1 Week (RETURN TO [facility]) TAMIKO CRANE [Primary Care Provider] - 1 Week Discharge Medications: Continued acetaminophen 325 mg Tablet 650 mg PO Q6H PRN (Reason: PAIN OR FEVER) Rx Instructions: fever above 101 carbamazepine 100 mg Tablet,Chewable 150 mg PO DAILY carbamazepine 100 mg Tablet,Chewable 300 mg PO BEDTIME albuterol sulfate 90 mcg/actuation Hfa Aerosol Inhaler 1 puff INHALATION Q6H PRN (Reason: Shortness Of Breath Or Wheezing) ketoconazole 2 % Cream 1 appl TOPICAL BID Rx Instructions: USE ON FACE, SCALP AND CHEST finasteride 5 mg Tablet 5 mg PO DAILY artificial tear([id number]) 0.1-0.3-0.2 % Drops 2 drp OPHTHALMIC-LEFT TID Rx Instructions: START ON 03/18/23, FOR 5 DAYS cholecalciferol (vitamin D3) [Optimal D3] 1,250 mcg (50,000 unit) Capsule 1,250 mcg PO QMONTH Rx Instructions: ADMINISTER IN THE MORNING OF EACH FOURTH DAY OF THE MONTH polyethylene glycol 3350 [Miralax] 17 gram/dose powder 17 g PO DAILY fluticasone furoate-vilanterol [Breo Ellipta] 100-25 mcg/dose blister with device 1 inh inhalation DAILY Rx Instructions: RINSE MOUTH AFTER EACH USE fluoxetine 20 mg capsule 20 mg PO DAILY tamsulosin 0.4 mg capsule 0.4 mg PO BEDTIME Zyrtec 10 mg capsule 10 mg PO BEDTIME magnesium hydroxide [Milk of Magnesia] 400 mg/5 mL suspension 30 ml PO DAILY PRN (Reason: Constipation) Rx Instructions: NO BM IN 3 DAYS bisacodyl [Dulcolax (bisacodyl)] 10 mg suppository 10 mg CA DAILY PRN (Reason: Constipation) Rx Instructions: US IF MOM IS INEFFECTIVE senna 8.6 mg capsule 17.2 mg PO BEDTIME ipratropium-albuterol 0.5 mg-3 mg(2.5 mg base)/3 mL solution for nebulization 3 ml inhalation Q6H PRN (Reason: Shortness Of Breath) baclofen 5 mg tablet 15 mg PO Q8H (DME) CPAP Device See Rx Instructions .Route Rx Instructions: As directed No Action tizanidine 2 mg Tablet 10 mg PO BEDTIME docusate sodium 100 mg Capsule 100 mg PO BID Discharge Orders: Discharge Order (Routine); Ordered 03/18/23 Ordered By: Shakeel nena Diet: Advance to usual diet Activity on Discharge: As tolerated Stand Alone Forms: Patient Portal Discharge page Care Plan Goals: recovery from sepsis, UTI and constipation Health Concerns: constiaption, UTI, sepsis, hypothermia, Plan of Treatment: Take Ceftin as recommended, continue all prior medication and follow up with your doctor in a week Assessment: as above Discharge Date/Time: 03/18/23 12:50
--- NOTE | 2023-03-18 10:49 | MHC.CM.PN ---
DP: PT HAS BEEN MEDICALLY CLEARED FOR DC BACK TO [facility] TO RESUME [facility]. CENTER UPDATED.[facility] TRANSPORT BOOKED FOR 12:30 PM VIA [facility]. RN AWARE.
--- NOTE | 2023-03-18 12:45 | PC.NURSE ---
Pt alert to self year president. Able to make needs know clearly although difficult to understand d/t garbled speech. Gail removed this am at 1000 urine yellow. Denies pain/discomfort. 1:1 with meals. Pt discharged back to facility via EMS at 1245 IV removed from right arm belongings sent with patient.
== END 2023-03-18 12:50 | disposition skilled nursing facility (03) | DRG 720 ==
LOC: HO.ED 10:08 → HO.EDOVER 15:16 → HO.IMC 17:57
PROVIDERS: Physician Assistant; Student in an Organized Health Care Education/Training Program; Admitting Provider Physician Assistant; Emergency Provider Emergency Medicine; PCP Emergency Medicine; Visit Provider Internal Medicine
DX: A41.9 Sepsis, unspecified organism (principal); G93.41 Metabolic encephalopathy; G93.1 Anoxic brain damage, not elsewhere classified; F25.9 Schizoaffective disorder, unspecified; N39.0 Urinary tract infection, site not specified; R68.0 Hypothermia, not associated with low environmental temperature; B96.4 Proteus (mirabilis) (morganii) as the cause of diseases classified elsewhere; K59.09 Other constipation; G31.09 Other frontotemporal neurocognitive disorder; G47.33 Obstructive sleep apnea (adult) (pediatric); G40.909 Epilepsy, unspecified, not intractable, without status epilepticus; J44.9 Chronic obstructive pulmonary disease, unspecified; N40.0 Benign prostatic hyperplasia without lower urinary tract symptoms; R13.10 Dysphagia, unspecified; Z79.899 Other long term (current) drug therapy
CPT/HCPCS: 0241U; 36415; 36600; 70450; 71045; 74176; 80048; 80076; 80307; 81001; 82140; 82533; 82803; 82947; 83605; 83735; 84443; 84484; 85025; 85610; 85730; 87040; 87086; 87088; 87186; 92526; 92610; 92950; 93005; 94640; 94660; 99285; C1758; J1650; J1953; J1956

== ENCOUNTER → 2023-03-14 14:52 | Outpatient (BNV) | payer MEDICAID, SELFPAY | PROVIDERS: Admitting Provider Physician Assistant; Emergency Provider Emergency Medicine; PCP Emergency Medicine; Visit Provider Physician Assistant | DX: N39.0 Urinary tract infection, site not specified (principal); A41.9 Sepsis, unspecified organism; R00.1 Bradycardia, unspecified | CPT/HCPCS: 99223; 99232; 99239 ==

== ENCOUNTER → 2023-03-14 14:52 | Outpatient (BNV) | payer MEDICAID, SELFPAY | PROVIDERS: Admitting Provider Physician Assistant; Emergency Provider Emergency Medicine; PCP Emergency Medicine; Visit Provider Surgery | DX: K59.09 Other constipation (principal) | CPT/HCPCS: 99222; 99499 ==

== ENCOUNTER 2023-03-30 14:06 | Emergency (ER) | payer MEDICAID, SELFPAY ==
--- NOTE | 2023-03-30 | ECG_ITS ---
Test Reason : STROKE Blood Pressure : / mmHG Vent. Rate : 066 BPM Atrial Rate : 066 BPM P-R Int : 192 ms QRS Dur : 080 ms QT Int : 402 ms P-R-T Axes : 056 010 027 degrees QTc Int : 421 ms Normal sinus rhythm Normal ECG When compared with ECG of 14-MAR-2023 08:25, Vent. rate has increased BY 22 BPM Referred By: Nikki Grace Electronically Signed By:GEORGES RAMACHANDRAN
--- NOTE | ~2023-03-30 | CT_ITS ---
EXAMINATION: CT HEAD WITHOUT CONTRAST CLINICAL INFORMATION: Altered mental status. COMPARISON: None available. TECHNIQUE: Contiguous axial imaging was performed from the skull base to vertex without intravenous administration of contrast. This CT examination was performed using dose optimization techniques as appropriate, variously including the following: *Automated exposure control *Adjustment of mA and/or kV according to patient size (this includes techniques or standardized protocols for targeted exams where dose is matched to indication/reason for exam; i.e. extremities or head) *Use of iterative reconstruction technique DLP: 672 mGy-cm FINDINGS: Motion slightly limits evaluation. The lateral, third and fourth ventricles are normally outlined. The cortical sulci and basal cisterns are normally outlined as well. There is no acute territorial defect, hemorrhage or midline shift. The extra-axial spaces are unremarkable. Calvarium: Intact. Maxilla facial sinuses and mastoids: Clear as visualized CT/CT head/brain wo IV con IMPRESSION: Motion slightly limits evaluation. No acute intracranial pathology.
--- NOTE | ~2023-03-30 | XR_ITS ---
EXAMINATION: XR CHEST CLINICAL INFORMATION: Chest pain. COMPARISON: Chest radiograph 03/14/2023. TECHNIQUE: AP view of the chest was obtained. FINDINGS: Low lung volumes limiting assessment of parenchymal details. Increased central and lower lung predominant bronchial thickening. No discrete consolidation, pleural effusion or pneumothorax. Similar appearance of the cardiomediastinal silhouette. No displaced osseous fractures. XR/XR chest 1V IMPRESSION: Bronchial wall thickening can be seen with small airways process or atypical/viral infection.
[2023-03-30 14:18] LABS: Glucose, Whole Blood 98 mg/dL (60-115)
[2023-03-30 14:23] VITALS: BP 122/72; PULSE 60; O2SAT 94; BMI 31.6
--- NOTE | 2023-03-30 14:30 | ED_ITS ---
HPI - Neuro Symptoms/Deficit General Chief Complaint: Stroke Stated Complaint: LKWT 1PM,L DROOP,UNRESP FROM SNF PER EMS History of Present Illness HPI Narrative: Patient is a 57-year-old male with a history of frontal temporal neuro cognitive disorder. History of depression seizures history of schizoaffective disorder on Tegretol for seizures history of constipation COPD dysphagia ataxia hypertension hepatitis-C anoxic brain injury in a fpc patient was awake alert during lunch upon this staff, back to check on him he was unresponsive. Sent into the emergency department for further evaluation. EMS noted a sugar that was greater than 100. Patient was given Narcan with only moderate relief. After Narcan patient per EMS was lethargic but responsive to painful stimuli. Related Data Home Medications Medication Instructions Recorded Confirmed CPAP 01/19/23 01/24/23 baclofen 5 mg tablet 15 mg PO Q8H 01/19/23 03/30/23 bisacodyl 10 mg rectal suppository 10 mg [place] DAILY PRN Constipation 01/19/23 03/30/23 (Dulcolax (bisacodyl)) cetirizine 10 mg capsule (Zyrtec) 10 mg PO BEDTIME 01/19/23 03/30/23 fluoxetine 20 mg capsule 20 mg PO DAILY 01/19/23 03/30/23 fluticasone furoate 100 1 inh inhalation DAILY 01/19/23 03/30/23 mcg-vilanterol 25 mcg/dose inhalation powder (Breo Ellipta) ipratropium 0.5 mg-albuterol 3 mg 3 ml inhalation Q6H PRN Shortness 01/19/23 03/30/23 (2.5 mg base)/3 mL nebulization Of Breath soln magnesium hydroxide 400 mg/5 mL 30 ml PO DAILY PRN Constipation 01/19/23 03/30/23 oral suspension (Milk of Magnesia) polyethylene glycol 3350 17 17 g PO DAILY 01/19/23 03/30/23 gram/dose oral powder (Miralax) sennosides 8.6 mg capsule (senna) 17.2 mg PO BEDTIME 01/19/23 03/30/23 tamsulosin 0.4 mg capsule 0.4 mg PO BEDTIME 01/19/23 03/30/23 acetaminophen 325 mg tablet 650 mg PO Q6H PRN PAIN OR FEVER 03/14/23 03/30/23 albuterol sulfate 90 mcg/actuation 1 puff inhalation Q6H PRN 03/14/23 03/30/23 aerosol inhaler Shortness Of Breath Or Wheezing artificial 2 drp ophthalmic-Left TID 03/14/23 03/30/23 tears(ytvreip-uuzdaokm-[id number]) 0.1 %-0.3 %-0.2 % eye drops carbamazepine 100 mg chewable 150 mg PO DAILY 03/14/23 03/30/23 tablet carbamazepine 100 mg chewable 300 mg PO BEDTIME 03/14/23 03/30/23 tablet cholecalciferol (vitamin D3) 1,250 1,250 mcg PO QMONTH 03/14/23 03/30/23 mcg (50,000 unit) capsule (Optimal D3) docusate sodium 100 mg tablet 100 mg PO BID 03/14/23 03/30/23 finasteride 5 mg tablet 5 mg PO DAILY 03/14/23 03/30/23 ketoconazole 2 % topical cream 1 appl topical BID 03/14/23 03/30/23 tizanidine 2 mg tablet 10 mg PO BEDTIME 03/30/23 03/30/23 Allergies Allergy/AdvReac Type Severity Reaction Status Date / Time Cephalosporins Allergy Unknown Verified 06/10/21 16:50 Review of Systems 2 Review of Systems: 0 to obtain review of systems secondary to patient's condition PMFSH Past Medical History Medical History Encephalopathy, unspecified Essential (primary) hypertension Ataxic gait Obstructive sleep apnea (adult) (pediatric) Chronic obstructive pulmonary disease, unspecified Anoxic brain damage, not elsewhere classified Retention of urine, unspecified Benign prostatic hyperplasia without lower urinary tract symptoms Constipation, unspecified Seborrheic dermatitis, unspecified Cramp and spasm Hyperlipidemia, unspecified Unspecified convulsions Major depressive disorder, recurrent, unspecified Schizoaffective disorder, unspecified Social History Social History Household Members: Unknown / Unable to assess Household Members Other:: [facility] [place] [facility] Housing: Other Housing Other:: [facility] Do you presently have visiting nurse or other home services: Yes Unable to assess alcohol history related to: Unknown Alcohol intake: never Patient Tobacco Use Status: Tobacco use Unknown Smoked in Last 30 Days: No Second Hand Smoke Exposure: No Use of substances other than those prescribed or required for medical reasons: No Advance Directives: No Advance Directives Information Provided: No service: No Physical Exam 2 Vital Signs: Vital Signs: Last Vital Signs Temp 98.4 F 03/30/23 16:00 Pulse 67 03/30/23 18:00 Resp 18 03/30/23 18:00 BP 123/84 03/30/23 18:00 Pulse Ox 97 03/30/23 18:00 O2 Del Method Room Air 03/30/23 18:00 O2 Flow Rate 2 03/30/23 14:50 BMI result Body Mass Index 31.6 Appearance: Lethargic, no response to painful stimuli, Eyes: Pupils equal, pinpoint ENT: Pharynx normal. Neck: Normal inspection. Neck supple. No lymph nodes noted. No crepitus CVS: Normal heart rate and rhythm. Pulses normal. Normal S1 and S2 Respiratory: No respiratory distress. Breath sounds normal. No Wheezing. No rales Abdomen: Soft and nontender. No rigidity. No distention. good BS x4 Skin: Skin warm and dry. Normal skin color. Normal skin turgor. Extremities: No lower extremity edema. Neurovascular intact to all extremities. No Lacerations. No Rash Neuro: Lethargic no response to painful stimuli Medications Administered Discontinued Medications Generic Name Dose Route Start Last Admin Trade Name Freq PRN Reason Stop Dose Admin Sodium Chloride 1,000 mls @ 999 mls/hr 03/30/23 14:30 03/30/23 17:22 Ns IV 03/30/23 15:30 Infused .Q1H1M DEQUAN Infusion Levofloxacin 500 mg in 100 mls @ 100 mls/hr 03/30/23 14:26 03/30/23 16:43 Levaquin IV 03/30/23 15:25 Infused ONCE ONE Infusion Naloxone HCl 4 mg 03/30/23 14:23 03/30/23 15:18 Naloxone Hcl 2 Mg/2 Ml Syringe IVPUSH 03/30/23 14:24 4 mg ONCE ONE Administration Medical Decision Making Medical Decision Making [facility] Narrative: Patient from [facility] no history of documented narcotics however patient had pinpoint pupils. Sugar was checked to be around 100 there is no evidence for hypoglycemia. 4 mg of Narcan was given as patient seems extremely lethargic has a pinpoint pupil. The Narcan may patient localized the pain mumbling now breathing spontaneously. An ABG was done. It showed a pH of 7.42 pCO2 46.1 PO2 81. My interpretation of patient's blood gas, there is no overt sign of respiratory failure. No significant acidosis. Patient's temperature was greater than 95. No fever no hypothermia. Question secondary to seizure a Tegretol level will be obtained. Electrolytes pending. Will check patient's lactate for possible seizure. CT scan of the head to rule out the possibility of bleed. Patient's medication list from the [facility]pc was reviewed. Not on Coumadin Xarelto Eliquis not on blood thinners. Chest x-ray being done. Will start patient on empiric dose of Levaquin. Patient to be cathed in order monitor urine output. Hydration status. Patient's Tegretol level was 6. There is no evidence for low Tegretol. Patient's ammonia level is 49 is normal. No evidence for hepatic encephalopathy. Patient's troponin is negative. My interpretation of his EKG showed a sinus rhythm heart rate is 70 [place] QRS QTC within normal limits was no acute ST segment elevation. Question if patient has episodes secondary to his seizure episode. Patient's mental status has improved with monitoring. COVID RSV and flu are all negative. Patient still somewhat lethargic. Oriented to self. Oriented to place. Has no specific complaints. Patient's case discussed with his mother Shannon. Patient's condition is chronic. Lethargy is chronic. [place] comfortable with sending patient back. Question if patient had a seizure episode. Currently lives in a [facility]. It in stable condition. Will discharge back. Differential Diagnosis Differential Diagnoses: The differential diagnosis associated with the presentation includes Intracranial bleed, sepsis, seizure numbness, postictal state, narcotic overdose, massive acidosis, polysubstance abuse Admission/Observation Consideration of admission/observation: Escalation of care including admission/observation considered Lab Data MDM Lab Attestation statement: I reviewed the patient's lab results. 03/30/23 14:22 03/30/23 14:22 Labs: Lab Results 03/30/23 03/30/23 03/30/23 Range/Units 14:15 14:22 14:25 WBC 5.9 (4.8-10.8) X10*3/uL RBC 4.06 L (4.60-5.80) X10*6/uL Hgb 12.8 L (14.0-18.0) g/dl Hct 36.3 L (42.0-52.0) % MCV 89.4 (80.0-98.0) fL MCH 31.5 (27.0-33.0) pg MCHC 35.3 (31.0-36.0) g/dl RDW 11.9 (11.0-16.0) % Plt Count 224 (160-400) X10*3/uL MPV 9.3 L (9.4-12.4) fL Immature Gran % (Auto) 0.5 H (0.0-0.4) % Neut % (Auto) 66.4 (45-73) % Lymph % (Auto) 16.9 L (20-40) % [place] % (Auto) 10.8 (2-11) % Eos % (Auto) 4.9 H (0-4) % Baso % (Auto) 0.5 (0-2) % Lymph # (Auto) 1.0 L (1.2-4.9) X10*3/uL [place] # (Auto) 0.6 (0.1-1.2) X10*3/uL Eos # (Auto) 0.3 (0.0-0.4) X10*3/uL Baso # (Auto) 0.0 (0.0-0.2) X10*3/uL Abs Immat Gran (auto) 0.03 (0.00-0.03) X10*3/uL Absolute Neuts (auto) 3.9 (2.0-8.3) x10*3/uL Absolute Nucleated RBC 0.000 (0.0-0.012) X10*3/uL Nucleated RBC % (auto) 0.0 (0.0-0.2) /100WBC O2 Saturation 96.0 % ABG pH at Pt Temp 7.43 (7.35-7.45) ABG pCO2 at Pt Temp 46 H (32-45) mmHg ABG pO2 at Pt Temp 81 L (83-108) mmHg ABG HCO3 31 H (22-26) mmol/L ABG Base Excess (Actual) 5.9 mmol/L Sodium 135 (135-145) mmol/L Potassium 4.0 (3.3-5.1) mmol/L Chloride 100 (96-108) mmol/L Carbon Dioxide 25 (22-29) mmol/L Anion Gap 14 (12-20) BUN 15 (9-16) mg/dL Creatinine 0.67 (0.5-1.4) mg/dL Estim Creat Clear Calc 138.0 Estimated GFR > 60 POC Glucose 98 (60-115) mg/dL Random Glucose 101 (60-115) mg/dL Lactic Acid 1.0 (0.5-2.0) mmol/L Calcium 9.3 (8.4-10.2) mg/dL Total Bilirubin 0.2 (0.0-1.0) mg/dL Direct Bilirubin < 0.2 (0.0-0.5) mg/dL AST 25 (5-37) U/L ALT 26 (0-40) U/L Alkaline Phosphatase 90 (39-117) U/L Ammonia 49 (13-55) umol/L Troponin I High Sens 4.2 D (<3.5-35.0) ng/L Total Protein 7.1 (6.5-8.0) g/dL Albumin 4.0 (3.5-5.0) g/dL Lipase 35 (8-78) U/L Urine Color Urine Appearance Urine pH (5.0-9.0) Ur Specific [place] (1.005-1.025) Urine Protein (Neg-Trace) mg/dL Urine Glucose (UA) (Negative) mg/dL Urine Ketones (Negative) mg/dL Urine Blood (Negative) Urine Nitrite (Negative) Ur Leukocyte Esterase (Negative) Urine RBC (0-2) /HPF Urine WBC (0-5) /HPF Ur Squamous Epith Cells (0-2) /HPF Urine Bacteria (None Seen) Hyaline Casts (0-2) /LPF Urine Opiates Screen (Not Detect) Urine Fentanyl Screen (Not Detect) Ur Barbiturates Screen (Not Detect) Carbamazepine (5.0-12.0) mcg/mL Ur Phencyclidine Scrn (Not Detect) Ur Amphetamines Screen (Not Detect) U Benzodiazepines Scrn (Not Detect) Urine Cocaine Screen (Not Detect) U Marijuana (THC) Screen (Not Detect) Influenza Type A (PCR) (Negative) Influenza Type B (PCR) (Negative) RSV RNA Qual (PCR) (Negative) SARS-CoV-2 RNA (RT-PCR) (Negative) 03/30/23 03/30/23 03/30/23 Range/Units 14:30 14:48 14:49 WBC (4.8-10.8) X10*3/uL RBC (4.60-5.80) X10*6/uL Hgb (14.0-18.0) g/dl Hct (42.0-52.0) % MCV (80.0-98.0) fL MCH (27.0-33.0) pg MCHC (31.0-36.0) g/dl RDW (11.0-16.0) % Plt Count (160-400) X10*3/uL MPV (9.4-12.4) fL Immature Gran % (Auto) (0.0-0.4) % Neut % (Auto) (45-73) % Lymph % (Auto) (20-40) % [place] % (Auto) (2-11) % Eos % (Auto) (0-4) % Baso % (Auto) (0-2) % Lymph # (Auto) (1.2-4.9) X10*3/uL [place] # (Auto) (0.1-1.2) X10*3/uL Eos # (Auto) (0.0-0.4) X10*3/uL Baso # (Auto) (0.0-0.2) X10*3/uL Abs Immat Gran (auto) (0.00-0.03) X10*3/uL Absolute Neuts (auto) (2.0-8.3) x10*3/uL Absolute Nucleated RBC (0.0-0.012) X10*3/uL Nucleated RBC % (auto) (0.0-0.2) /100WBC O2 Saturation % ABG pH at Pt Temp (7.35-7.45) ABG pCO2 at Pt Temp (32-45) mmHg ABG pO2 at Pt Temp (83-108) mmHg ABG HCO3 (22-26) mmol/L ABG Base Excess (Actual) mmol/L Sodium (135-145) mmol/L Potassium (3.3-5.1) mmol/L Chloride (96-108) mmol/L Carbon Dioxide (22-29) mmol/L Anion Gap (12-20) BUN (9-16) mg/dL Creatinine (0.5-1.4) mg/dL Estim Creat Clear Calc Estimated GFR POC Glucose (60-115) mg/dL Random Glucose (60-115) mg/dL Lactic Acid (0.5-2.0) mmol/L Calcium (8.4-10.2) mg/dL Total Bilirubin (0.0-1.0) mg/dL Direct Bilirubin (0.0-0.5) mg/dL AST (5-37) U/L ALT (0-40) U/L Alkaline Phosphatase (39-117) U/L Ammonia (13-55) umol/L Troponin I High Sens (<3.5-35.0) ng/L Total Protein (6.5-8.0) g/dL Albumin (3.5-5.0) g/dL Lipase (8-78) U/L Urine Color Yellow Urine Appearance Clear Urine pH 7.5 (5.0-9.0) Ur Specific [place] 1.015 (1.005-1.025) Urine Protein Negative (Neg-Trace) mg/dL Urine Glucose (UA) Negative (Negative) mg/dL Urine Ketones Negative (Negative) mg/dL Urine Blood Negative (Negative) Urine Nitrite Negative (Negative) Ur Leukocyte Esterase Negative (Negative) Urine RBC 0-2 (0-2) /HPF Urine WBC 0-5 (0-5) /HPF Ur Squamous Epith Cells 0-2 (0-2) /HPF Urine Bacteria None Seen (None Seen) Hyaline Casts 0-2 (0-2) /LPF Urine Opiates Screen Not Detected (Not Detect) Urine Fentanyl Screen Not Detected (Not Detect) Ur Barbiturates Screen Not Detected (Not Detect) Carbamazepine (5.0-12.0) mcg/mL Ur Phencyclidine Scrn Not Detected (Not Detect) Ur Amphetamines Screen Not Detected (Not Detect) U Benzodiazepines Scrn Not Detected (Not Detect) Urine Cocaine Screen Not Detected (Not Detect) U Marijuana (THC) Screen Not Detected (Not Detect) Influenza Type A (PCR) NEGATIVE (Negative) Influenza Type B (PCR) NEGATIVE (Negative) RSV RNA Qual (PCR) NEGATIVE (Negative) SARS-CoV-2 RNA (RT-PCR) NEGATIVE (Negative) 03/30/23 Range/Units 15:17 WBC (4.8-10.8) X10*3/uL RBC (4.60-5.80) X10*6/uL Hgb (14.0-18.0) g/dl Hct (42.0-52.0) % MCV (80.0-98.0) fL MCH (27.0-33.0) pg MCHC (31.0-36.0) g/dl RDW (11.0-16.0) % Plt Count (160-400) X10*3/uL MPV (9.4-12.4) fL Immature Gran % (Auto) (0.0-0.4) % Neut % (Auto) (45-73) % Lymph % (Auto) (20-40) % [place] % (Auto) (2-11) % Eos % (Auto) (0-4) % Baso % (Auto) (0-2) % Lymph # (Auto) (1.2-4.9) X10*3/uL [place] # (Auto) (0.1-1.2) X10*3/uL Eos # (Auto) (0.0-0.4) X10*3/uL Baso # (Auto) (0.0-0.2) X10*3/uL Abs Immat Gran (auto) (0.00-0.03) X10*3/uL Absolute Neuts (auto) (2.0-8.3) x10*3/uL Absolute Nucleated RBC (0.0-0.012) X10*3/uL Nucleated RBC % (auto) (0.0-0.2) /100WBC O2 Saturation % ABG pH at Pt Temp (7.35-7.45) ABG pCO2 at Pt Temp (32-45) mmHg ABG pO2 at Pt Temp (83-108) mmHg ABG HCO3 (22-26) mmol/L ABG Base Excess (Actual) mmol/L Sodium (135-145) mmol/L Potassium (3.3-5.1) mmol/L Chloride (96-108) mmol/L Carbon Dioxide (22-29) mmol/L Anion Gap (12-20) BUN (9-16) mg/dL Creatinine (0.5-1.4) mg/dL Estim Creat Clear Calc Estimated GFR POC Glucose (60-115) mg/dL Random Glucose (60-115) mg/dL Lactic Acid (0.5-2.0) mmol/L Calcium (8.4-10.2) mg/dL Total Bilirubin (0.0-1.0) mg/dL Direct Bilirubin (0.0-0.5) mg/dL AST (5-37) U/L ALT (0-40) U/L Alkaline Phosphatase (39-117) U/L Ammonia (13-55) umol/L Troponin I High Sens (<3.5-35.0) ng/L Total Protein (6.5-8.0) g/dL Albumin (3.5-5.0) g/dL Lipase (8-78) U/L Urine Color Urine Appearance Urine pH (5.0-9.0) Ur Specific [place] (1.005-1.025) Urine Protein (Neg-Trace) mg/dL Urine Glucose (UA) (Negative) mg/dL Urine Ketones (Negative) mg/dL Urine Blood (Negative) Urine Nitrite (Negative) Ur Leukocyte Esterase (Negative) Urine RBC (0-2) /HPF Urine WBC (0-5) /HPF Ur Squamous Epith Cells (0-2) /HPF Urine Bacteria (None Seen) Hyaline Casts (0-2) /LPF Urine Opiates Screen (Not Detect) Urine Fentanyl Screen (Not Detect) Ur Barbiturates Screen (Not Detect) Carbamazepine 6.0 (5.0-12.0) mcg/mL Ur Phencyclidine Scrn (Not Detect) Ur Amphetamines Screen (Not Detect) U Benzodiazepines Scrn (Not Detect) Urine Cocaine Screen (Not Detect) U Marijuana (THC) Screen (Not Detect) Influenza Type A (PCR) (Negative) Influenza Type B (PCR) (Negative) RSV RNA Qual (PCR) (Negative) SARS-CoV-2 RNA (RT-PCR) (Negative) Discharge Plan Discharge Clinical Impression: Seizure Patient Disposition: Home, Self-Care Instructions: Recurrent Seizures in Adults (ED) Prescriptions: No Action tizanidine 2 mg Tablet 10 mg PO BEDTIME acetaminophen 325 mg Tablet 650 mg PO Q6H PRN (Reason: PAIN OR FEVER) Rx Instructions: fever above 101 carbamazepine 100 mg Tablet,Chewable 150 mg PO DAILY carbamazepine 100 mg Tablet,Chewable 300 mg PO BEDTIME albuterol sulfate 90 mcg/actuation Hfa Aerosol Inhaler 1 puff INHALATION Q6H PRN (Reason: Shortness Of Breath Or Wheezing) ketoconazole 2 % Cream 1 appl TOPICAL BID Rx Instructions: USE ON FACE, SCALP AND CHEST docusate sodium 100 mg Tablet 100 mg PO BID finasteride 5 mg Tablet 5 mg PO DAILY artificial tear([id number]) 0.1-0.3-0.2 % Drops 2 drp OPHTHALMIC-LEFT TID Rx Instructions: START ON 03/18/23, FOR 5 DAYS cholecalciferol (vitamin D3) [Optimal D3] 1,250 mcg (50,000 unit) Capsule 1,250 mcg PO QMONTH Rx Instructions: ADMINISTER IN THE MORNING OF EACH FOURTH DAY OF THE MONTH polyethylene glycol 3350 [Miralax] 17 gram/dose powder 17 g PO DAILY fluticasone furoate-vilanterol [Breo Ellipta] 100-25 mcg/dose blister with device 1 inh inhalation DAILY Rx Instructions: RINSE MOUTH AFTER EACH USE fluoxetine 20 mg capsule 20 mg PO DAILY tamsulosin 0.4 mg capsule 0.4 mg PO BEDTIME Zyrtec 10 mg capsule 10 mg PO BEDTIME magnesium hydroxide [Milk of Magnesia] 400 mg/5 mL suspension 30 ml PO DAILY PRN (Reason: Constipation) Rx Instructions: NO BM IN 3 DAYS bisacodyl [Dulcolax (bisacodyl)] 10 mg suppository 10 mg [place] DAILY PRN (Reason: Constipation) Rx Instructions: US IF MOM IS INEFFECTIVE senna 8.6 mg capsule 17.2 mg PO BEDTIME ipratropium-albuterol 0.5 mg-3 mg(2.5 mg base)/3 mL solution for nebulization 3 ml inhalation Q6H PRN (Reason: Shortness Of Breath) baclofen 5 mg tablet 15 mg PO Q8H (DME) CPAP Device See Rx Instructions .Route Rx Instructions: As directed Referrals: TAMIKO CRANE [Primary Care Provider] - 04/04/23
[2023-03-30 14:32] LABS: ABG Base Excess 5.9 mmol/L; ABG HCO3 31 mmol/L (22-26); ABG pCO2 46 mmHg (32-45); ABG pH 7.43 (7.35-7.45); ABG pO2 81 mmHg (83-108)
[2023-03-30 14:44] LABS: Ammonia 49 umol/L (13-55)
[2023-03-30 14:50] VITALS: BP 130/73; PULSE 55; RESP 14; TEMP 37.1; O2SAT 98
[2023-03-30 14:50] LABS: MANUAL DIFF FLAG NO
[2023-03-30 14:52] LABS: Basophils Percent Auto 0.5 % (0-2); Eosinophils Absolute Auto 0.3 X10*3/uL (0.0-0.4); Eosinophils Percent Auto 4.9 % (0-4); Hematocrit 36.3 % (42.0-52.0); Hemoglobin 12.8 g/dl (14.0-18.0); Imm Gran Abs Auto 0.03 X10*3/uL (0.00-0.03); Imm Gran Pct Auto 0.5 % (0.0-0.4); Lymphocytes Percent Auto 16.9 % (20-40); Mean Corpuscular HGB Conc 35.3 g/dl (31.0-36.0); Mean Corpuscular Hemoglobin 31.5 pg (27.0-33.0); Mean Corpuscular Volume 89.4 fL (80.0-98.0); Mean Platelet Volume 9.3 fL (9.4-12.4); Monocytes Absolute Auto 0.6 X10*3/uL (0.1-1.2); Monocytes Percent Auto 10.8 % (2-11); Neutrophils Absolute Auto 3.9 x10*3/uL (2.0-8.3); Neutrophils Percent Auto 66.4 % (45-73); Platelet Count 224 X10*3/uL (160-400); Red Blood Count 4.06 X10*6/uL (4.60-5.80); Red Cell Distribution Width 11.9 % (11.0-16.0); White Blood Count 5.9 X10*3/uL (4.8-10.8)
[2023-03-30 14:57] LABS: Appearance Urine Clear; Color Urine Yellow; Glucose Urine UA Negative (Negative); Leukocyte Esterase Urine Negative (Negative); Nitrite Urine Negative (Negative); PH 7.5 (5.0-9.0); Specific Gravity - Urine 1.015 (1.005-1.025); Urine Blood Negative (Negative); Urine Ketones Negative (Negative); Urine Protein Negative (Neg-Trace)
--- NOTE | 2023-03-30 15:02 | PC.NURSE ---
Upon arrival with EMS patient unresponsive to even deep sternal rub. Assessed by provider. Patient with pinpoint pupils, 4mg IV narcan given with no effect. EKG obtained. Provider initially going to intubate however patient became more alert. Patient with even unlabored respirations, 96% on RA. NSR on monitor, VSS. Respiratory at bedside, abgs obtained. 2 IV`s placed.
[2023-03-30 15:04] LABS: Amphetamine Screen Urine Not Detected (Not Detect); Barbiturates, Urine Not Detected (Not Detect); Benzodiazepines Screen Urine Not Detected (Not Detect); Cannabinoid Screen Urine Not Detected (Not Detect); Cocaine Screen Urine Not Detected (Not Detect); Fentanyl, urine Not Detected (Not Detect); Opiate Screen Urine Not Detected (Not Detect); Phencyclidine Screen Urine Not Detected (Not Detect)
[2023-03-30 15:09] LABS: Alanine Aminotransferase 26 U/L (0-40); Alkaline Phosphatase 90 U/L (39-117); Anion Gap 14 (12-20); Aspartate Amino Transferase 25 U/L (5-37); Bilirubin Direct < 0.2 mg/dL (0.0-0.5); Bilirubin Total 0.2 mg/dL (0.0-1.0); Blood Urea Nitrogen 15 mg/dL (9-16); Calcium 9.3 mg/dL (8.4-10.2); Carbon Dioxide 25 mmol/L (22-29); Chloride 100 mmol/L (96-108); Estimated Glomerular Filt Rate > 60; Glucose Random 101 mg/dL (60-115); Lipase 35 U/L (8-78); Sodium 135 mmol/L (135-145); Total Protein 7.1 g/dL (6.5-8.0)
[2023-03-30 15:09] LABS: Bacteria Urine None Seen (None Seen); Hyaline Casts Urine 0-2 /LPF (0-2); RBC Urine 0-2 /HPF (0-2); Squamous Epithelial Cell Urine 0-2 /HPF (0-2); WBC Urine 0-5 /HPF (0-5)
[2023-03-30 15:16] LABS: Troponin-I High Sensitivity 4.2 ng/L (<3.5-35.0)
[2023-03-30] MEDS: Naloxone HCl 2 MG/2 ML SYRINGE 4 MG IVPUSH (15:18)
[2023-03-30] MEDS: 0.9 % Sodium Chloride 1,000 ML 999 ML IV (15:20)
[2023-03-30 15:23] LABS: Influenza A PCR NEGATIVE (Negative); Influenza B PCR NEGATIVE (Negative); Resp Syncy Virus RNA Qual PCR NEGATIVE (Negative); SARS COV2 PCR INHOUSE NEGATIVE (Negative)
[2023-03-30] MEDS: levoFLOXacin/D5W 500 MG/100 ML PIGGYBACK 100 MG IV (15:23)
--- NOTE | 2023-03-30 15:32 | PC.NURSE ---
[place] placed per order, 500ml immediate output of clear yellow urine
[2023-03-30 16:00] VITALS: BP 146/75; PULSE 59; RESP 18; TEMP 36.9; O2SAT 98
--- NOTE | 2023-03-30 16:42 | PC.NURSE ---
Patient alert and responsive. Denies pain or discomfort. Watching t.v, able to use control to change tv to desired channel
--- NOTE | 2023-03-30 17:20 | PC.NURSE ---
Patients mother updated on current condition
[2023-03-30 18:00] VITALS: BP 123/84; PULSE 67; RESP 18; O2SAT 97
--- NOTE | 2023-03-30 18:32 | PC.NURSE ---
Alert and responsive, states no when asked if he is having pain. Watching t.v, us draining clear urine
--- NOTE | 2023-03-30 18:36 | PHA.MEDREC ---
Pharmacy Consult ? Medication Reconciliation Pharmacy has completed the medication reconciliation. Medication list was entered according to med list from [facility].
--- NOTE | 2023-03-30 20:33 | PC.NURSE ---
Assumed care of pt. Pt lying on stretcher, minimally responsive to MD and this RN at bedside. Pt wakened with sternal rub, belligerent, but responsive at that time. Per MD, all findings negative at this time. MD to contact mother for corroboration of baseline, plan to DC back to facility.
[2023-03-30 21:02] VITALS: BP 148/69; PULSE 55; RESP 17; O2SAT 96
--- NOTE | 2023-03-30 23:29 | P.HPHOSP_ITS ---
[facility] Medical History Encephalopathy, unspecified Essential (primary) hypertension Ataxic gait Obstructive sleep apnea (adult) (pediatric) Chronic obstructive pulmonary disease, unspecified Anoxic brain damage, not elsewhere classified Retention of urine, unspecified Benign prostatic hyperplasia without lower urinary tract symptoms Constipation, unspecified Seborrheic dermatitis, unspecified Cramp and spasm Hyperlipidemia, unspecified Unspecified convulsions Major depressive disorder, recurrent, unspecified Schizoaffective disorder, unspecified Social History Household Members: Unknown / Unable to assess Household Members Other:: [place] [facility] Housing: Other [facility] Do you presently have visiting nurse or other home services: Yes Unable to assess alcohol history related to: Unknown Alcohol intake: never Patient Tobacco Use Status: Tobacco use Unknown Smoked in Last 30 Days: No Second Hand Smoke Exposure: No Use of substances other than those prescribed or required for medical reasons: No Advance Directives: No Advance Directives Information Provided: No service: No Meds Allergies Allergy/AdvReac Type Severity Reaction Status Date / Time Cephalosporins Allergy Unknown Verified 06/10/21 16:50 Home Medications Medication Instructions Recorded Confirmed Last Taken Type CPAP 01/19/23 01/24/23 Unknown History baclofen 5 mg tablet 15 mg PO Q8H 01/19/23 03/30/23 Unknown History bisacodyl 10 mg rectal suppository 10 mg DE DAILY PRN Constipation 01/19/23 03/30/23 Unknown History (Dulcolax (bisacodyl)) cetirizine 10 mg capsule (Zyrtec) 10 mg PO BEDTIME 01/19/23 03/30/23 Unknown History fluoxetine 20 mg capsule 20 mg PO DAILY 01/19/23 03/30/23 Unknown History fluticasone furoate 100 1 inh inhalation DAILY 01/19/23 03/30/23 Unknown History mcg-vilanterol 25 mcg/dose inhalation powder (Breo Ellipta) ipratropium 0.5 mg-albuterol 3 mg 3 ml inhalation Q6H PRN Shortness 01/19/23 03/30/23 Unknown History (2.5 mg base)/3 mL nebulization Of Breath soln magnesium hydroxide 400 mg/5 mL 30 ml PO DAILY PRN Constipation 01/19/23 03/30/23 Unknown History oral suspension (Milk of Magnesia) polyethylene glycol 3350 17 17 g PO DAILY 01/19/23 03/30/23 Unknown History gram/dose oral powder (Miralax) sennosides 8.6 mg capsule (senna) 17.2 mg PO BEDTIME 01/19/23 03/30/23 Unknown History tamsulosin 0.4 mg capsule 0.4 mg PO BEDTIME 01/19/23 03/30/23 Unknown History acetaminophen 325 mg tablet 650 mg PO Q6H PRN PAIN OR FEVER 03/14/23 03/30/23 Unknown History albuterol sulfate 90 mcg/actuation 1 puff inhalation Q6H PRN 03/14/23 03/30/23 Unknown History aerosol inhaler Shortness Of Breath Or Wheezing artificial 2 drp ophthalmic-Left TID 03/14/23 03/30/23 Unknown History tears(idhvliq-krxrgsfn-xpyuzij) 0.1 %-0.3 %-0.2 % eye drops carbamazepine 100 mg chewable 150 mg PO DAILY 03/14/23 03/30/23 Unknown History tablet carbamazepine 100 mg chewable 300 mg PO BEDTIME 03/14/23 03/30/23 Unknown History tablet cholecalciferol (vitamin D3) 1,250 1,250 mcg PO QMONTH 03/14/23 03/30/23 03/06/23 History mcg (50,000 unit) capsule (Optimal D3) docusate sodium 100 mg tablet 100 mg PO BID 03/14/23 03/30/23 Unknown History finasteride 5 mg tablet 5 mg PO DAILY 03/14/23 03/30/23 Unknown History ketoconazole 2 % topical cream 1 appl topical BID 03/14/23 03/30/23 Unknown History tizanidine 2 mg tablet 10 mg PO BEDTIME 03/30/23 03/30/23 Unknown History Physical Exam 2 Vital Signs and Narrative: Vital Signs: Last Vital Signs Temp 98.4 F 03/30/23 16:00 Pulse 55 03/30/23 21:02 Resp 17 03/30/23 21:02 BP 148/69 H 03/30/23 21:02 Pulse Ox 96 03/30/23 21:02 O2 Del Method Room Air 03/30/23 21:02 O2 Flow Rate 2 03/30/23 14:50 BMI result Body Mass Index 31.6 Results Labs 03/30/23 14:22 03/30/23 14:22 Labs: Laboratory Results - last 24 hr 03/30/23 03/30/23 03/30/23 14:15 14:22 14:25 MCV 89.4 MCH 31.5 MCHC 35.3 RDW 11.9 Plt Count 224 MPV 9.3 L Immature Gran % (Auto) 0.5 H Neut % (Auto) 66.4 Lymph % (Auto) 16.9 L Edwards % (Auto) 10.8 Eos % (Auto) 4.9 H Baso % (Auto) 0.5 Lymph # (Auto) 1.0 L Edwards # (Auto) 0.6 Eos # (Auto) 0.3 Baso # (Auto) 0.0 Abs Immat Gran (auto) 0.03 Absolute Neuts (auto) 3.9 Absolute Nucleated RBC 0.000 Nucleated RBC % (auto) 0.0 O2 Saturation 96.0 ABG pH at Pt Temp 7.43 ABG pCO2 at Pt Temp 46 H ABG pO2 at Pt Temp 81 L ABG HCO3 31 H ABG Base Excess (Actual) 5.9 Anion Gap 14 Estim Creat Clear Calc 138.0 Estimated GFR > 60 POC Glucose 98 Random Glucose 101 Lactic Acid 1.0 Calcium 9.3 Total Bilirubin 0.2 Direct Bilirubin < 0.2 AST 25 ALT 26 Alkaline Phosphatase 90 Ammonia 49 Total Protein 7.1 Albumin 4.0 Lipase 35 Urine Color Urine Appearance Urine pH Ur Specific [place] Urine Protein Urine Glucose (UA) Urine Ketones Urine Blood Urine Nitrite Ur Leukocyte Esterase Urine RBC Urine WBC Ur Squamous Epith Cells Urine Bacteria Hyaline Casts Urine Opiates Screen Urine Fentanyl Screen Ur Barbiturates Screen Carbamazepine Ur Phencyclidine Scrn Ur Amphetamines Screen U Benzodiazepines Scrn Urine Cocaine Screen U Marijuana (THC) Screen Influenza Type A (PCR) Influenza Type B (PCR) RSV RNA Qual (PCR) SARS-CoV-2 RNA (RT-PCR) 03/30/23 03/30/23 03/30/23 14:30 14:48 14:49 MCV MCH MCHC RDW Plt Count MPV Immature Gran % (Auto) Neut % (Auto) Lymph % (Auto) Edwards % (Auto) Eos % (Auto) Baso % (Auto) Lymph # (Auto) Edwards # (Auto) Eos # (Auto) Baso # (Auto) Abs Immat Gran (auto) Absolute Neuts (auto) Absolute Nucleated RBC Nucleated RBC % (auto) O2 Saturation ABG pH at Pt Temp ABG pCO2 at Pt Temp ABG pO2 at Pt Temp ABG HCO3 ABG Base Excess (Actual) Anion Gap Estim Creat Clear Calc Estimated GFR POC Glucose Random Glucose Lactic Acid Calcium Total Bilirubin Direct Bilirubin AST ALT Alkaline Phosphatase Ammonia Total Protein Albumin Lipase Urine Color Yellow Urine Appearance Clear Urine pH 7.5 Ur Specific [place] 1.015 Urine Protein Negative Urine Glucose (UA) Negative Urine Ketones Negative Urine Blood Negative Urine Nitrite Negative Ur Leukocyte Esterase Negative Urine RBC 0-2 Urine WBC 0-5 Ur Squamous Epith Cells 0-2 Urine Bacteria None Seen Hyaline Casts 0-2 Urine Opiates Screen Not Detected Urine Fentanyl Screen Not Detected Ur Barbiturates Screen Not Detected Carbamazepine Ur Phencyclidine Scrn Not Detected Ur Amphetamines Screen Not Detected U Benzodiazepines Scrn Not Detected Urine Cocaine Screen Not Detected U Marijuana (THC) Screen Not Detected Influenza Type A (PCR) NEGATIVE Influenza Type B (PCR) NEGATIVE RSV RNA Qual (PCR) NEGATIVE SARS-CoV-2 RNA (RT-PCR) NEGATIVE 03/30/23 15:17 MCV MCH MCHC RDW Plt Count MPV Immature Gran % (Auto) Neut % (Auto) Lymph % (Auto) Edwards % (Auto) Eos % (Auto) Baso % (Auto) Lymph # (Auto) Edwards # (Auto) Eos # (Auto) Baso # (Auto) Abs Immat Gran (auto) Absolute Neuts (auto) Absolute Nucleated RBC Nucleated RBC % (auto) O2 Saturation ABG pH at Pt Temp ABG pCO2 at Pt Temp ABG pO2 at Pt Temp ABG HCO3 ABG Base Excess (Actual) Anion Gap Estim Creat Clear Calc Estimated GFR POC Glucose Random Glucose Lactic Acid Calcium Total Bilirubin Direct Bilirubin AST ALT Alkaline Phosphatase Ammonia Total Protein Albumin Lipase Urine Color Urine Appearance Urine pH Ur Specific [place] Urine Protein Urine Glucose (UA) Urine Ketones Urine Blood Urine Nitrite Ur Leukocyte Esterase Urine RBC Urine WBC Ur Squamous Epith Cells Urine Bacteria Hyaline Casts Urine Opiates Screen Urine Fentanyl Screen Ur Barbiturates Screen Carbamazepine 6.0 Ur Phencyclidine Scrn Ur Amphetamines Screen U Benzodiazepines Scrn Urine Cocaine Screen U Marijuana (THC) Screen Influenza Type A (PCR) Influenza Type B (PCR) RSV RNA Qual (PCR) SARS-CoV-2 RNA (RT-PCR) Imaging Radiologist's Impressions: Impressions Chest X-Ray 03/30/23 14:59 IMPRESSION: Bronchial wall thickening can be seen with small airways process or atypical/viral infection. Head CT 03/30/23 15:27 IMPRESSION: Motion slightly limits evaluation. No acute intracranial pathology. Assessment and Plan Time Spent With Patient Time: Total time managing care of this patient today ____ minutes.
== END 2023-03-31 | disposition home or self-care (01) ==
PROVIDERS: Emergency Provider Emergency Medicine Emergency Medical Services; PCP Emergency Medicine
DX: R56.9 Unspecified convulsions (principal); Z20.822 Contact with and (suspected) exposure to COVID-19; Z20.828 Contact with and (suspected) exposure to other viral communicable diseases; R53.83 Other fatigue; I10 Essential (primary) hypertension; G47.33 Obstructive sleep apnea (adult) (pediatric); Z99.89 Dependence on other enabling machines and devices; Z79.899 Other long term (current) drug therapy
CPT/HCPCS: 0241U; 70450; 71045; 80048; 80076; 80156; 80307; 81001; 82140; 82803; 82947; 83605; 83690; 84484; 85025; 87040; 93005; 96361; 96365; 96375; 99285; J1956

== ENCOUNTER 2023-04-01 13:51 | Inpatient (IN) | payer MEDICAID, SELFPAY ==
[2023-04-01] VITALS (11 sets, daily range): BP systolic 73–108; BP diastolic 30–62; PULSE 54–86; RESP 12–64; TEMP 36–36.6; O2SAT 93–99; BMI 33.3; BMI 32.2
--- NOTE | ~2023-04-01 | XR_ITS ---
EXAMINATION: XR CHEST CLINICAL INFORMATION: Acute mental status change COMPARISON: Previous chest x-rays most recent 03/30/2023 TECHNIQUE: Frontal view of the chest was obtained. FINDINGS: The lung volumes are low. The cardiac and mediastinal contours are stable. The lungs are clear. No pleural effusion or pneumothorax. Question sclerotic densities in the right proximal humeral shaft. This could be better evaluated with right humerus x-ray if clinically indicated. XR/XR chest 1V IMPRESSION: Low lung volumes. No evidence for acute disease in the chest. Question sclerotic densities in the right proximal humeral shaft.
--- NOTE | ~2023-04-01 | CT_ITS ---
EXAMINATION: CT HEAD WITHOUT CONTRAST (STROKE PROTOCOL) CLINICAL INFORMATION: Stroke protocol. Acute mental status change COMPARISON: Previous head CT scans most recent 03/30/2023 TECHNIQUE: Contiguous axial imaging was performed from the skull base to vertex without intravenous administration of contrast. This CT examination was performed using dose optimization techniques as appropriate, variously including the following: *Automated exposure control *Adjustment of mA and/or kV according to patient size (this includes techniques or standardized protocols for targeted exams where dose is matched to indication/reason for exam; i.e. extremities or head) *Use of iterative reconstruction technique DLP: 637 mGy-cm FINDINGS: There is no evidence of an extra-axial collection. There is no evidence of intra-axial or extra-axial hemorrhage. The ventricles and extra-axial CSF spaces are appropriate. Richards-white matter differentiation is normal. No mass, mass effect or infarct. No skull fracture. Paranasal sinuses, mastoid air cells and middle ears are clear. CT/CT head for stroke IMPRESSION: No acute intracranial pathology. This critical result was discussed with Jennifer Morley at 1413 hours on 04/01/2023. It was ascertained that the content and urgency of the report was understood at the time of direct communication.
--- NOTE | 2023-04-01 13:55 | ECG_ITS ---
Test Reason : ? STROKE Blood Pressure : / mmHG Vent. Rate : 062 BPM Atrial Rate : 062 BPM P-R Int : 180 ms QRS Dur : 074 ms QT Int : 426 ms P-R-T Axes : 028 008 040 degrees QTc Int : 432 ms Poor data quality, interpretation may be adversely affected Normal sinus rhythm Normal ECG When compared with ECG of 30-MAR-2023 14:19, No significant change was found Referred By: Dorita Morley Electronically Signed By:GEORGES RAMACHANDRAN
--- NOTE | 2023-04-01 14:07 | ED_ITS ---
HPI - General Adult General Chief complaint: Neuro Symptoms/Deficit Stated complaint: STROKE ALERT Time Seen by Provider: 04/01/23 14:07 Source: patient and EMS Mode of arrival: EMS Limitations: no limitations History of Present Illness HPI narrative: 57-year-old male with history of frontal temporal neurocognitive disorder, depression, seizure, schizoaffective disorder, COPD, dysphagia, ataxia, hypertension, hepatitis-C, anoxic brain injury, left at the correction mostly bedridden, patient was sent for evaluation of a possible stroke, patient found to move 4 extremities, patient is nonverbal at baseline. Patient was seen 2 days ago in the emergency department for seizure and post time, patient last known to be seen was in the morning (was not specified by the correction). Related Data Home Medications Medication Instructions Recorded Confirmed CPAP 01/19/23 01/24/23 baclofen 5 mg tablet 15 mg PO Q8H 01/19/23 03/30/23 bisacodyl 10 mg rectal suppository 10 mg AL DAILY PRN Constipation 01/19/23 03/30/23 (Dulcolax (bisacodyl)) cetirizine 10 mg capsule (Zyrtec) 10 mg PO BEDTIME 01/19/23 03/30/23 fluoxetine 20 mg capsule 20 mg PO DAILY 01/19/23 03/30/23 fluticasone furoate 100 1 inh inhalation DAILY 01/19/23 03/30/23 mcg-vilanterol 25 mcg/dose inhalation powder (Breo Ellipta) ipratropium 0.5 mg-albuterol 3 mg 3 ml inhalation Q6H PRN Shortness 01/19/23 03/30/23 (2.5 mg base)/3 mL nebulization Of Breath soln magnesium hydroxide 400 mg/5 mL 30 ml PO DAILY PRN Constipation 01/19/23 03/30/23 oral suspension (Milk of Magnesia) polyethylene glycol 3350 17 17 g PO DAILY 01/19/23 03/30/23 gram/dose oral powder (Miralax) sennosides 8.6 mg capsule (senna) 17.2 mg PO BEDTIME 01/19/23 03/30/23 tamsulosin 0.4 mg capsule 0.4 mg PO BEDTIME 01/19/23 03/30/23 acetaminophen 325 mg tablet 650 mg PO Q6H PRN PAIN OR FEVER 03/14/23 03/30/23 albuterol sulfate 90 mcg/actuation 1 puff inhalation Q6H PRN 03/14/23 03/30/23 aerosol inhaler Shortness Of Breath Or Wheezing artificial 2 drp ophthalmic-Left TID 03/14/23 03/30/23 tears(tozotha-[id number]) 0.1 %-0.3 %-0.2 % eye drops carbamazepine 100 mg chewable 150 mg PO DAILY 03/14/23 03/30/23 tablet carbamazepine 100 mg chewable 300 mg PO BEDTIME 03/14/23 03/30/23 tablet cholecalciferol (vitamin D3) 1,250 1,250 mcg PO QMONTH 03/14/23 03/30/23 mcg (50,000 unit) capsule (Optimal D3) docusate sodium 100 mg tablet 100 mg PO BID 03/14/23 03/30/23 finasteride 5 mg tablet 5 mg PO DAILY 03/14/23 03/30/23 ketoconazole 2 % topical cream 1 appl topical BID 03/14/23 03/30/23 tizanidine 2 mg tablet 10 mg PO BEDTIME 03/30/23 03/30/23 Allergies Allergy/AdvReac Type Severity Reaction Status Date / Time Cephalosporins Allergy Unknown Verified 06/10/21 16:50 Review of Systems 2 Review of Systems: Yes Unobtainable due to mental status PMFSH Past Medical History Medical History Encephalopathy, unspecified Essential (primary) hypertension Ataxic gait Obstructive sleep apnea (adult) (pediatric) Chronic obstructive pulmonary disease, unspecified Anoxic brain damage, not elsewhere classified Retention of urine, unspecified Benign prostatic hyperplasia without lower urinary tract symptoms Constipation, unspecified Seborrheic dermatitis, unspecified Cramp and spasm Hyperlipidemia, unspecified Unspecified convulsions Major depressive disorder, recurrent, unspecified Schizoaffective disorder, unspecified Social History Social History Household Members: Unknown / Unable to assess Household Members Other:: [place] [facility] Housing: [facility] Do you presently have visiting nurse or other home services: Yes Unable to assess alcohol history related to: Unknown Alcohol intake: never Patient Tobacco Use Status: Tobacco use Unknown Second Hand Smoke Exposure: No Advance Directives: No service: No Physical Exam ED Vital Signs: Vital Signs - 24 hr 04/01/23 14:07 04/01/23 14:24 04/01/23 14:44 Temperature 96.8 F Pulse Rate 74 60 61 Respiratory Rate 16 12 12 Blood Pressure 94/62 73/30 L 107/61 Pulse Oximetry 94 94 95 Oxygen Delivery Method Room Air Room Air Room Air 04/01/23 14:56 04/01/23 15:21 Temperature Pulse Rate 66 67 Respiratory Rate 13 64 H Blood Pressure 108/47 L 100/55 L Pulse Oximetry 94 94 Oxygen Delivery Method Room Air Room Air BMI result Body Mass Index 33.3 Vital signs have been reviewed and appear to be correct. Blood pressure elevated. Heart rate normal. Respiratory rate normal. Temperature normal. Oxygen saturation normal. Appearance: Alert. Awake regarding examined, follow commands. No acute distress. Head: Normal external exam. Normocephalic. Atraumatic. No Victoria signs noted. No raccoon eyes noted Eyes: PERRLA. EOMI. Conjunctiva and sclera normal. Eyelids normal. ENT: TM's Normal. Pharynx normal. Uvula midline. Moist mucous membranes. No trismus noted. No drooling noted. No muffled voice noted. Neck: Normal inspection. Neck supple. FROM. No adenopathy. Thyroid Normal. No meningeal signs. No neck mass noted. CVS: Normal heart rate and rhythm. Heart sound normal. No murmurs noted. Pulses normal throughout. Respiratory: No respiratory distress. Painless inspiration. Breath sounds normal. No wheezes/rales/rhonchi noted. Chest nontender. No accessory muscle usage noted or decreased air movement noted. Abdomen: Soft and nontender. Bowel sounds normal in all 4 quadrants. No distention noted. No organomegaly noted. No visible injury noted. Back: No CVA tenderness. Full range of motion noted. Skin: Skin warm and dry. Normal skin color. Normal skin turgor. No rashes/lesions/lacerations noted. Extremities: No lower extremity edema. Extremities exhibit normal range of motion. Extremities nontender. Neuro:. Cranial nerve exam: II-XII are grossly intact No motor deficit. No sensory deficit. Reflexes normal. Course Course Course Narrative: Patient had a reading of hypotension improved with IV hydration, patient at baseline of his of his neurological status. Moves 4 extremities, patient is not a candidate for tPA patient with no sign of new neurological deficit, dehydration and hypotension no sign of infection responded well to IV hydration. Medical Decision Making Differential Diagnosis Differential Diagnoses: The differential diagnosis associated with the presentation includes (Stroke, dehydration, hypotension, electrolyte abnormality, UTI, severe anemia.) Admission/Observation Consideration of admission/observation: Escalation of care including admission/observation considered Consult Healthcare Provider Management of the patient was discussed with: Hospitalist () Lab Data MDM Lab Attestation statement: I reviewed the patient's lab results. 04/01/23 14:37 04/01/23 14:37 Labs: Lab Results 04/01/23 04/01/23 04/01/23 Range/Units 14:08 14:37 14:47 WBC 10.8 (4.8-10.8) X10*3/uL RBC 4.49 L (4.60-5.80) X10*6/uL Hgb 13.8 L (14.0-18.0) g/dl Hct 40.8 L (42.0-52.0) % MCV 90.9 (80.0-98.0) fL MCH 30.7 (27.0-33.0) pg MCHC 33.8 (31.0-36.0) g/dl RDW 12.1 (11.0-16.0) % Plt Count 225 (160-400) X10*3/uL MPV 9.1 L (9.4-12.4) fL Immature Gran % (Auto) 0.4 (0.0-0.4) % Neut % (Auto) 86.5 H (45-73) % Lymph % (Auto) 5.6 L (20-40) % [place] % (Auto) 5.2 (2-11) % Eos % (Auto) 2.0 (0-4) % Baso % (Auto) 0.3 (0-2) % Lymph # (Auto) 0.6 L (1.2-4.9) X10*3/uL [place] # (Auto) 0.6 (0.1-1.2) X10*3/uL Eos # (Auto) 0.2 (0.0-0.4) X10*3/uL Baso # (Auto) 0.0 (0.0-0.2) X10*3/uL Abs Immat Gran (auto) 0.04 H (0.00-0.03) X10*3/uL Absolute Neuts (auto) 9.3 H (2.0-8.3) x10*3/uL Absolute Nucleated RBC 0.000 (0.0-0.012) X10*3/uL Nucleated RBC % (auto) 0.0 (0.0-0.2) /100WBC Hold Purple Top SEE NOTE PT 12.9 (11.1-13.3) SEC Whole Blood PT 13.2 (11.1-13.5) sec INR 1.1 (0.9-1.1) Whole Blood INR 1.1 (0.9-1.1) APTT 31.8 (26.0-36.4) SEC Sodium 140 (135-145) mmol/L Potassium 3.8 (3.3-5.1) mmol/L Chloride 103 (96-108) mmol/L Carbon Dioxide 26 (22-29) mmol/L Anion Gap 15 (12-20) BUN 13 (9-16) mg/dL Creatinine 0.82 (0.5-1.4) mg/dL Estim Creat Clear Calc 112.2 Estimated GFR > 60 POC Glucose 109 (60-115) mg/dL Random Glucose 112 (60-115) mg/dL Lactic Acid 0.8 (0.5-2.0) mmol/L Calcium 9.8 (8.4-10.2) mg/dL Magnesium 1.9 (1.6-2.6) mg/dL Total Bilirubin 0.4 (0.0-1.0) mg/dL Direct Bilirubin 0.1 (0.0-0.5) mg/dL AST 21 (5-37) U/L ALT 25 (0-40) U/L Alkaline Phosphatase 94 (39-117) U/L Total Creatine Kinase 101 (38-174) U/L Troponin I High Sens 8.0 D (<3.5-35.0) ng/L Total Protein 7.3 (6.5-8.0) g/dL Albumin 4.1 (3.5-5.0) g/dL Urine Color Yellow Urine Appearance Clear Urine pH 6.5 (5.0-9.0) Ur Specific [place] 1.020 (1.005-1.025) Urine Protein 100 (2+) H (Neg-Trace) mg/dL Urine Glucose (UA) Negative (Negative) mg/dL Urine Ketones Negative (Negative) mg/dL Urine Blood Small (1+) H (Negative) Urine Nitrite Negative (Negative) Ur Leukocyte Esterase Small (1+) H (Negative) Urine RBC 3-5 H (0-2) /HPF Urine WBC 6-10 (0-5) /HPF Ur Squamous Epith Cells 3-5 (0-2) /HPF Urine Bacteria None Seen (None Seen) Hyaline Casts 6-10 (0-2) /LPF Granular Casts Present Independent Interpretation I performed an independent interpretation of an: Plain X-Ray (Chest: No acute disease in the chest.) and CT Scan (Head: No acute intracranial pathology.) Radiology Impression Discussion of test interpretation with radiology: I have reviewed the radiologist's reading. Discharge Plan Discharge Clinical Impression: Dehydration, Hypotension Patient Disposition: Admitted As Inpatient Prescriptions: No Action tizanidine 2 mg Tablet 10 mg PO BEDTIME acetaminophen 325 mg Tablet 650 mg PO Q6H PRN (Reason: PAIN OR FEVER) Rx Instructions: fever above 101 carbamazepine 100 mg Tablet,Chewable 150 mg PO DAILY carbamazepine 100 mg Tablet,Chewable 300 mg PO BEDTIME albuterol sulfate 90 mcg/actuation Hfa Aerosol Inhaler 1 puff INHALATION Q6H PRN (Reason: Shortness Of Breath Or Wheezing) ketoconazole 2 % Cream 1 appl TOPICAL BID Rx Instructions: USE ON FACE, SCALP AND CHEST docusate sodium 100 mg Tablet 100 mg PO BID finasteride 5 mg Tablet 5 mg PO DAILY artificial tear([id number]) 0.1-0.3-0.2 % Drops 2 drp OPHTHALMIC-LEFT TID Rx Instructions: START ON 03/18/23, FOR 5 DAYS cholecalciferol (vitamin D3) [Optimal D3] 1,250 mcg (50,000 unit) Capsule 1,250 mcg PO QMONTH Rx Instructions: ADMINISTER IN THE MORNING OF EACH FOURTH DAY OF THE MONTH polyethylene glycol 3350 [Miralax] 17 gram/dose powder 17 g PO DAILY fluticasone furoate-vilanterol [Breo Ellipta] 100-25 mcg/dose blister with device 1 inh inhalation DAILY Rx Instructions: RINSE MOUTH AFTER EACH USE fluoxetine 20 mg capsule 20 mg PO DAILY tamsulosin 0.4 mg capsule 0.4 mg PO BEDTIME Zyrtec 10 mg capsule 10 mg PO BEDTIME magnesium hydroxide [Milk of Magnesia] 400 mg/5 mL suspension 30 ml PO DAILY PRN (Reason: Constipation) Rx Instructions: NO BM IN 3 DAYS bisacodyl [Dulcolax (bisacodyl)] 10 mg suppository 10 mg AL DAILY PRN (Reason: Constipation) Rx Instructions: US IF MOM IS INEFFECTIVE senna 8.6 mg capsule 17.2 mg PO BEDTIME ipratropium-albuterol 0.5 mg-3 mg(2.5 mg base)/3 mL solution for nebulization 3 ml inhalation Q6H PRN (Reason: Shortness Of Breath) baclofen 5 mg tablet 15 mg PO Q8H (DME) CPAP Device See Rx Instructions .Route Rx Instructions: As directed
[2023-04-01 14:13] LABS: Prothrombin Time Whole Bld POC 13.2 sec (11.1-13.5); ~PT, ~INR - Anti Coag Clinic 1.1 (0.9-1.1)
[2023-04-01 14:17] LABS: Glucose, Whole Blood 109 mg/dL (60-115)
[2023-04-01 14:48] LABS: MANUAL DIFF FLAG NO
[2023-04-01 14:53] LABS: Basophils Percent Auto 0.3 % (0-2); Eosinophils Absolute Auto 0.2 X10*3/uL (0.0-0.4); Hematocrit 40.8 % (42.0-52.0); Hemoglobin 13.8 g/dl (14.0-18.0); Imm Gran Abs Auto 0.04 X10*3/uL (0.00-0.03); Imm Gran Pct Auto 0.4 % (0.0-0.4); Lymphocytes Absolute Auto 0.6 X10*3/uL (1.2-4.9); Lymphocytes Percent Auto 5.6 % (20-40); Mean Corpuscular HGB Conc 33.8 g/dl (31.0-36.0); Mean Corpuscular Hemoglobin 30.7 pg (27.0-33.0); Mean Corpuscular Volume 90.9 fL (80.0-98.0); Mean Platelet Volume 9.1 fL (9.4-12.4); Monocytes Absolute Auto 0.6 X10*3/uL (0.1-1.2); Monocytes Percent Auto 5.2 % (2-11); Neutrophils Absolute Auto 9.3 x10*3/uL (2.0-8.3); Neutrophils Percent Auto 86.5 % (45-73); Platelet Count 225 X10*3/uL (160-400); Red Blood Count 4.49 X10*6/uL (4.60-5.80); Red Cell Distribution Width 12.1 % (11.0-16.0); White Blood Count 10.8 X10*3/uL (4.8-10.8)
[2023-04-01 14:56] LABS: Appearance Urine Clear; Color Urine Yellow; Glucose Urine UA Negative (Negative); Leukocyte Esterase Urine Small (1+) (Negative); Nitrite Urine Negative (Negative); PH 6.5 (5.0-9.0); UMIC TRIGGER UACC YES; Urine Blood Small (1+) (Negative); Urine Ketones Negative (Negative); Urine Protein 100 (2+) mg/dL (Neg-Trace)
[2023-04-01 15:03] LABS: INTERNATIONAL NORM RATIO 1.1 (0.9-1.1); Prothrombin Time 12.9 SEC (11.1-13.3)
[2023-04-01 15:05] LABS: Lactic Acid 0.8 mmol/L (0.5-2.0)
[2023-04-01 15:06] LABS: Partial Thromboplastin Time 31.8 SEC (26.0-36.4)
[2023-04-01 15:08] LABS: Alanine Aminotransferase 25 U/L (0-40); Albumin Level 4.1 g/dL (3.5-5.0); Alkaline Phosphatase 94 U/L (39-117); Anion Gap 15 (12-20); Aspartate Amino Transferase 21 U/L (5-37); Bilirubin Direct 0.1 mg/dL (0.0-0.5); Bilirubin Total 0.4 mg/dL (0.0-1.0); Blood Urea Nitrogen 13 mg/dL (9-16); Calcium 9.8 mg/dL (8.4-10.2); Carbon Dioxide 26 mmol/L (22-29); Chloride 103 mmol/L (96-108); Creatinine Clr Calc Pharmacy 112.2; Estimated Glomerular Filt Rate > 60; Glucose Random 112 mg/dL (60-115); Magnesium 1.9 mg/dL (1.6-2.6); Potassium 3.8 mmol/L (3.3-5.1); Sodium 140 mmol/L (135-145); Total Protein 7.3 g/dL (6.5-8.0)
[2023-04-01 15:11] LABS: Bacteria Urine None Seen (None Seen); Granular Casts Urine Present; UACC Culture Trigger YES
--- NOTE | 2023-04-01 15:36 | PC.NURSE ---
attempt call [facility]. transferred to 1st floor unit and was hung up on multiple times.
[2023-04-01 15:53] LABS: Stroke Lab Use COMPLETE
[2023-04-01] MEDS: 0.9 % Sodium Chloride 1,000 ML 999 ML IV (17:15)
--- NOTE | 2023-04-01 17:36 | P.HPHOSP_ITS ---
History of Present Illness Date of Service: 04/01/23 <NICOLE Braxton - Last Filed: 04/01/23 19:48> Attending physician on admission: Bobbi Schulte <NICOLE Braxton - Last Filed: 04/01/23 19:48> Chief Complaint: Right-sided weakness <NICOLE Braxton - Last Filed: 04/01/23 19:48> Pt is a 57-year-old male with a PMH significant for?frontal temporal neural cognitive disorder, seizures, anoxic brain injury, COPD, dysphagia, BPH, hepatitis-C, HTN, polyneuropathy, hx of obstructive uropathy, depression, and schizoaffective disorder who presents to the ED from [facility] for evaluation of apparent right-sided weakness. Patient primarily bedridden/wheelchair bound with significant neurocognitive disorder, alert and oriented to self only. Patient with limited means of making his needs known, it is very difficult to understand. Have attempted multiple times to get a hold of SNF but have yet to be able to speak to nursing staff. HPI is thus very limited and taking exclusively from chart review. Apparently EMS handoff said that SNF staff head found patient with right-sided weakness with unclear last well-known time, possibly earlier this morning or last night. It was not specified whether patient was also altered/confused. ?Of note, patient was last seen at the hospital 2 days prior when he presented for unresponsive, lethargy, likely breakthrough seizure. In the ED patient was afebrile but hypotensive as low as 73/30, satting at 94% on RA. Labs were grossly unremarkable. Stable H&H at 13.8/40.8. No leukocytosis. Coags WNL. Electrolytes WNL. Renal function, hepatic function WNL. UA Likely negative for UTI. CXR showed no evidence for acute disease in the chest. CT?of head showing no acute intracranial pathology. EKG demonstrated sinus rhythm without evidence of ST elevations or depressions. Pt was treated with 1 L IVF. Pt will be admitted to the hospital under observation on telemetry for evaluation and further workup of possible seizure versus TIA versus hypotension. <NICOLE Braxton - Last Filed: 04/01/23 19:48> [facility] Medical History: Medical History Encephalopathy, unspecified Essential (primary) hypertension Ataxic gait Obstructive sleep apnea (adult) (pediatric) Chronic obstructive pulmonary disease, unspecified Anoxic brain damage, not elsewhere classified Retention of urine, unspecified Benign prostatic hyperplasia without lower urinary tract symptoms Constipation, unspecified Seborrheic dermatitis, unspecified Cramp and spasm Hyperlipidemia, unspecified Unspecified convulsions Major depressive disorder, recurrent, unspecified Schizoaffective disorder, unspecified <NICOLE Braxton - Last Filed: 04/01/23 19:48> Social History: Social History Household Members: Unknown / Unable to assess Household Members Other:: [facility] Housing: Other [facility] Do you presently have visiting nurse or other home services: Yes Unable to assess alcohol history related to: Unknown Alcohol intake: never Patient Tobacco Use Status: Tobacco use Unknown Smoked in Last 30 Days: No Second Hand Smoke Exposure: No Use of substances other than those prescribed or required for medical reasons: No Advance Directives: No Advance Directives Information Provided: No (Not on file) service: No <NICOLE Braxton - Last Filed: 04/01/23 19:48> Meds Allergies/Adverse reactions: Allergies Allergy/AdvReac Type Severity Reaction Status Date / Time Cephalosporins Allergy Unknown Verified 06/10/21 16:50 <NICOLE Braxton - Last Filed: 04/01/23 19:48> Active Medications: Current Medications Sodium Chloride (Ns) 1,000 mls @ 999 mls/hr IV .Q1H1M ONE Stop: 04/01/23 18:10 <NICOLE Braxton Last Filed: 04/01/23 19:48> Home medications: Home Medications Medication Instructions Recorded Confirmed Last Taken Type CPAP 01/19/23 01/24/23 Unknown History baclofen 5 mg tablet 15 mg PO Q8H 01/19/23 04/01/23 Unknown History bisacodyl 10 mg rectal suppository 10 mg HI DAILY PRN Constipation 01/19/23 04/01/23 Unknown History (Dulcolax (bisacodyl)) cetirizine 10 mg capsule (Zyrtec) 10 mg PO BEDTIME 01/19/23 04/01/23 Unknown History fluoxetine 20 mg capsule 20 mg PO DAILY 01/19/23 04/01/23 Unknown History fluticasone furoate 100 1 inh inhalation DAILY 01/19/23 04/01/23 Unknown History mcg-vilanterol 25 mcg/dose inhalation powder (Breo Ellipta) ipratropium 0.5 mg-albuterol 3 mg 3 ml inhalation Q6H PRN Shortness 01/19/23 04/01/23 Unknown History (2.5 mg base)/3 mL nebulization Of Breath soln magnesium hydroxide 400 mg/5 mL 30 ml PO DAILY PRN Constipation 01/19/23 04/01/23 Unknown History oral suspension (Milk of Magnesia) polyethylene glycol 3350 17 17 g PO DAILY 01/19/23 04/01/23 Unknown History gram/dose oral powder (Miralax) sennosides 8.6 mg capsule (senna) 17.2 mg PO BEDTIME 01/19/23 04/01/23 Unknown History tamsulosin 0.4 mg capsule 0.4 mg PO BEDTIME 01/19/23 04/01/23 Unknown History acetaminophen 325 mg tablet 650 mg PO Q6H PRN PAIN OR FEVER 03/14/23 04/01/23 Unknown History albuterol sulfate 90 mcg/actuation 1 puff inhalation Q6H PRN 03/14/23 04/01/23 Unknown History aerosol inhaler Shortness Of Breath Or Wheezing artificial 2 drp ophthalmic-Left TID 03/14/23 04/01/23 Unknown History tears([id number]) 0.1 %-0.3 %-0.2 % eye drops carbamazepine 100 mg chewable 150 mg PO DAILY 03/14/23 04/01/23 Unknown History tablet carbamazepine 100 mg chewable 300 mg PO BEDTIME 03/14/23 04/01/23 Unknown History tablet cholecalciferol (vitamin D3) 1,250 1,250 mcg PO QMONTH 03/14/23 04/01/23 03/06/23 History mcg (50,000 unit) capsule (Optimal D3) finasteride 5 mg tablet 5 mg PO DAILY 03/14/23 04/01/23 Unknown History ketoconazole 2 % topical cream 1 appl topical BID 03/14/23 04/01/23 Unknown History tizanidine 2 mg tablet 10 mg PO BEDTIME 03/30/23 04/01/23 Unknown History docusate sodium 100 mg capsule 100 mg PO BID 04/01/23 04/01/23 Unknown History <NICOLE Braxton - Last Filed: 04/01/23 19:48> Physical Exam 2 Vital Signs and Narrative: Vital Signs: Last Vital Signs Temp 96.8 F 04/01/23 14:07 Pulse 67 04/01/23 15:21 Resp 64 H 04/01/23 15:21 BP 100/55 L 04/01/23 15:21 Pulse Ox 94 04/01/23 15:21 O2 Del Method Room Air 04/01/23 15:21 BMI result Body Mass Index 33.3 <NICOLE Braxton - Last Filed: 04/01/23 19:48> Constitutional: Alert, pleasantly confused, cooperative, in no acute distress. Pt difficult to understand but capable of making basic needs known. Mental Status: Oriented to person but not to place, time, or situation. Eyes: Pupils are equal, round, and reactive to light. Ear, Nose, and Throat: Oropharynx clear, mucous membranes moist. Ears and nose without deformities. Trachea midline. Respiratory: Clear to auscultation bilaterally. No wheezing, rales, or rhonchi. Cardiovascular: S1, S2 regular. No murmurs, rubs, or gallops. Gastrointestinal: Abdomen soft, non-tender, non-distended. Normal bowel sounds. Neurologic: Cranial nerves II-XII are grossly intact bilaterally. Moves all extremities spontaneously, though with chronic limited use of lower extremities. Skin: No rashes or lesions noted. Musculoskeletal: No cyanosis or clubbing. Extremities: No edema. Psychiatric: Normal mood and affect. <NICOLE Braxton - Last Filed: 04/01/23 19:48> Results Labs CBC and Chem 7: 04/01/23 14:37 04/01/23 14:37 <NICOLE Braxton - Last Filed: 04/01/23 19:48> Labs: Laboratory Results - last 24 hr 04/01/23 04/01/23 04/01/23 14:08 14:37 14:47 MCV 90.9 MCH 30.7 MCHC 33.8 RDW 12.1 Plt Count 225 MPV 9.1 L Immature Gran % (Auto) 0.4 Neut % (Auto) 86.5 H Lymph % (Auto) 5.6 L [place] % (Auto) 5.2 Eos % (Auto) 2.0 Baso % (Auto) 0.3 Lymph # (Auto) 0.6 L [place] # (Auto) 0.6 Eos # (Auto) 0.2 Baso # (Auto) 0.0 Abs Immat Gran (auto) 0.04 H Absolute Neuts (auto) 9.3 H Absolute Nucleated RBC 0.000 Nucleated RBC % (auto) 0.0 Hold Purple Top SEE NOTE PT 12.9 Whole Blood PT 13.2 INR 1.1 Whole Blood INR 1.1 APTT 31.8 Anion Gap 15 Estim Creat Clear Calc 112.2 Estimated GFR > 60 POC Glucose 109 Random Glucose 112 Lactic Acid 0.8 Calcium 9.8 Magnesium 1.9 Total Bilirubin 0.4 Direct Bilirubin 0.1 AST 21 ALT 25 Alkaline Phosphatase 94 Total Creatine Kinase 101 Total Protein 7.3 Albumin 4.1 Urine Color Yellow Urine Appearance Clear Urine pH 6.5 Ur Specific [place]ill 1.020 Urine Protein 100 (2+) H Urine Glucose (UA) Negative Urine Ketones Negative Urine Blood Small (1+) H Urine Nitrite Negative Ur Leukocyte Esterase Small (1+) H Urine RBC 3-5 H Urine WBC 6-10 Ur Squamous Epith Cells 3-5 Urine Bacteria None Seen Hyaline Casts 6-10 Granular Casts Present <NICOLE Braxton - Last Filed: 04/01/23 19:48> Imaging Radiologist's Impressions: Impressions Head CT 04/01/23 14:02 IMPRESSION: No acute intracranial pathology. This critical result was discussed with Jennifer Morley at 1413 hours on 04/01/2023. It was ascertained that the content and urgency of the report was understood at the time of direct communication. Chest X-Ray 04/01/23 15:24 IMPRESSION: Low lung volumes. No evidence for acute disease in the chest. Question sclerotic densities in the right proximal humeral shaft. <NICOLE Braxton - Last Filed: 04/01/23 19:48> Assessment and Plan (1) Hypotension: Status: Acute <NICOLE Braxton - Last Filed: 04/01/23 19:48> Pt is a 57-year-old male with a PMH significant for?frontal temporal neural cognitive disorder, seizures, anoxic brain injury, COPD, dysphagia, BPH, hepatitis-C, HTN, polyneuropathy, hx of obstructive uropathy, depression, and schizoaffective disorder who presents to the ED from [facility] for evaluation of apparent right-sided weakness. Pt will be admitted to the hospital under observation on telemetry for evaluation and further workup of possible seizure versus TIA versus hypotension. Right-sided weakness Patient apparently sent to ED from SNF for evaluation of right sided weakness CT of head negative for acute intracranial pathology, electrolytes WNL, CXR negative, UA negative Patient's blood pressure was as low as 73/30 Hypotension vs TIA vs breakthrough seizure Pt currently with no focal defecits Pt given IVF in ED, will place on maintenance fluids Will get Tegretol level Monitor on telemetry Hypotension Blood pressure soft Likely secondary to dehydration Not on home antihypertensives at this time Patient received IVF in ED, will be placed on maintenance fluids overnight Hold tamsulosin, finasteride Monitor BP closely Unspecified seizure disorder Will get Tegretol levels Continue Tegretol COPD Not in acute exacerbation Continue home inhalers, albuterol p.r.n. Dysphagia/Diet Speech therapy evaluation on last admission on 03/17/2023 recommended: Chopped/advanced diet (NDD3) with thin liquids Pills crushed in puree Soft sandwiches from kitchen at Patient requires total 1 on 1 assistance with feeding Strict aspiration precautions See speech therapy note on 03/17/2023 for additional details BPH Hold finasteride, tamsulosin Full Code Attending:?Dr. Schulte DVT Prophylaxis: Lovenox Pt will require a hospitalization of at least two nights for treatment of? with . Patient requires inpatient stay at least 2 midnights for management of acute UTI with sepsis and metabolic encephalopathy requiring IV antibiotics, close monitoring of vital signs to prevent decompensation, and mentation monitoring < NICOLE Braxton - Last Filed: 04/01/23 19:48> Pt is a 57-year-old male with a PMH significant for?frontal temporal neural cognitive disorder, seizures, anoxic brain injury, COPD, dysphagia, BPH, hepatitis-C, HTN, polyneuropathy, hx of obstructive uropathy, depression, and schizoaffective disorder who presents to the ED from [facility] for evaluation of apparent right-sided weakness. Pt will be admitted to the hospital under observation on telemetry for evaluation and further workup of possible seizure versus TIA versus hypotension. Right-sided weakness Patient apparently sent to ED from SNF for evaluation of right sided weakness CT of head negative for acute intracranial pathology, electrolytes WNL, CXR negative, UA negative Patient's blood pressure was as low as 73/30 Hypotension vs TIA vs breakthrough seizure Pt currently with no focal defecits Pt given IVF in ED, will place on maintenance fluids Will get Tegretol level Monitor on telemetry Hypotension Blood pressure soft Likely secondary to dehydration Not on home antihypertensives at this time Patient received IVF in ED, will be placed on maintenance fluids overnight Hold tamsulosin, finasteride Monitor BP closely Unspecified seizure disorder Will get Tegretol levels Continue Tegretol COPD Not in acute exacerbation Continue home inhalers, albuterol p.r.n. Dysphagia/Diet Speech therapy evaluation on last admission on 03/17/2023 recommended: Chopped/advanced diet (NDD3) with thin liquids Pills crushed in puree Soft sandwiches from kitchen at Patient requires total 1 on 1 assistance with feeding Strict aspiration precautions See speech therapy note on 03/17/2023 for additional details BPH Hold finasteride, tamsulosin Full Code Attending:?Dr. Schulte DVT Prophylaxis: Lovenox Pt will require a hospitalization of at least two nights for treatment of? with . Patient requires inpatient stay at least 2 midnights for management of acute UTI with sepsis and metabolic encephalopathy requiring IV antibiotics, close monitoring of vital signs to prevent decompensation, and mentation monitoring DOS 04/01/23 Addendum to history and physical by the advanced practice provider, Fahad Holman I interviewed and examined the patient. I discussed their presentation and management with the CJ. I reviewed the history and physical and agree with the documentation, with the following additions and corrections: 57yo M LTC resident of [facility] with neurocognitive disorder, anoxic brain injury, seizure dysorder, schizoaffective disorder sent in for reported R-sided weakness though ED physician tried 3x to call [facility] with no response; I tried 2x with no response found to be hypotensive but fluid-responsive was just here in the ED on 03/30 for unresponsive episode, possibly a seizure though Tegretol level was therapeutic unable to get meaningful hx from pt though he has barely intelligible speech no focal weakness noted admit on observation status, give IV fluids, recheck BP, follow cultures, check Tegretol level <Bobbi Schulte MD - Last Filed: 04/02/23 10:52> Time Spent With Patient Time: Total time managing care of this patient today ____ minutes. <NICOLE Braxton - Last Filed: 04/01/23 19:48> Quality Stroke Does the patient have a stroke diagnosis?: No <NICOLE Braxton - Last Filed: 04/01/23 19:48> VTE Prior VTE?: No <NICOLE Braxton - Last Filed: 04/01/23 19:48> VTE Risk Level:: Medical - moderate - high <NICOLE Braxton - Last Filed: 04/01/23 19:48> VTE Device Contraindication: Treatment Not Indicated <NICOLE Braxton - Last Filed: 04/01/23 19:48> VTE Drug Contraindication: N/A - Med Ordered <NICOLE Braxton - Last Filed: 04/01/23 19:48>
--- NOTE | 2023-04-01 17:46 | PHA.MEDREC ---
Pharmacy Consult ? Medication Reconciliation Pharmacy has completed the medication reconciliation. Used list from [facility]
[2023-04-01 20:03] LABS: Carbamazepine Tegretol 6.3 mcg/mL (5.0-12.0)
[2023-04-01] MEDS: Baclofen 10 MG TABLET 15 MG PO (20:27)
[2023-04-01] MEDS: Enoxaparin Sodium 40 MG/0.4 ML SYRINGE SUBCUT (20:27)
[2023-04-01] MEDS: Docusate Sodium 100 MG CAPSULE PO (20:27)
[2023-04-01] MEDS: Lactated Ringers 1,000 ML 100 ML IVCONT ×2 (20:27→23:25)
[2023-04-01] MEDS: Sennosides 8.6 MG TABLET 17.2 MG PO (20:28)
[2023-04-01] MEDS: Loratadine 10 MG TABLET PO (20:28)
[2023-04-01] MEDS: TiZANidine HCL 4 MG TABLET 10 MG PO (20:29)
[2023-04-01] MEDS: carBAMazepine 100 MG TAB.CHEW 300 MG PO (20:29)
--- NOTE | 2023-04-01 20:46 | PC.NURSE ---
pt take his medications crushed in pudding
--- NOTE | 2023-04-01 21:57 | PC.NURSE ---
Pt became hypotensive /, difficult to rise pt, HOB lowered, iv fluids infusing
[2023-04-01 22:01] LABS: Glucose, Whole Blood 189 mg/dL (60-115)
[2023-04-01] MEDS: Naloxone HCl Nasal 4 MG SPRAY NOSTRILALT (22:02)
--- NOTE | 2023-04-01 22:03 | PC.NURSE ---
pt bilateral pupils pinpoint, medicated with narcan nasal
[2023-04-01 22:14] LABS: Amphetamine Screen Urine Not Detected (Not Detect); Barbiturates, Urine Not Detected (Not Detect); Benzodiazepines Screen Urine Not Detected (Not Detect); Cannabinoid Screen Urine Not Detected (Not Detect); Cocaine Screen Urine Not Detected (Not Detect); Fentanyl, urine Not Detected (Not Detect); Opiate Screen Urine Not Detected (Not Detect); Phencyclidine Screen Urine Not Detected (Not Detect)
[2023-04-01 22:30] LABS: Acetaminophen LAB < 17 mcg/mL (<30); Salicylate < 5.0 mg/dL (15-30)
[2023-04-01] MEDS: 0.9 % Sodium Chloride Flush 3 ML SYRINGE IVFLUSH (23:20)
[2023-04-02] VITALS (8 sets, daily range): BP systolic 132–195; BP diastolic 73–95; PULSE 51–57; RESP 12–22; TEMP 35.8–37.2; O2SAT 95–98
--- NOTE | 2023-04-02 10:54 | P.PNIM_ITS ---
Subjective Subjective Date of Service: 04/02/23 Interval History: somnolent, difficult to arouse BP now high no seizures no fever Review of Systems Review of Systems: Yes Unobtainable due to mental status Physical Exam 2 Vital Signs: Vital Signs: Last Vital Signs Temp 96.5 F L 04/02/23 07:56 Pulse 57 04/02/23 07:56 Resp 12 04/02/23 07:56 BP 176/82 H 04/02/23 08:38 Pulse Ox 96 04/02/23 07:56 O2 Del Method Room Air 04/02/23 07:56 O2 Flow Rate 2 04/01/23 20:00 BMI result Body Mass Index 32.2 Gen: in no acute distress HEENT: sclera anicteric, moist mucus membranes Neck: supple Lungs: clear to auscultation bilaterally Heart: regular rate and rhythm, no murmurs Abd: soft, non-tender, non-distended Ext: no edema Skin: warm/well-perfused Neuro: alert, garbled speech, moves all extremities Psych: unable to assess insight Objective Data Active Medications Acetaminophen (Acetaminophen 325 Mg Tablet) 650 mg PO Q6H PRN PRN Reason: Pain, Mild (Pain Scale 1-3) Albuterol Sulfate (Albuterol Sulfate 90 Mcg 8 Gm Inhaler) 1 puff INHALE Q6H PRN PRN Reason: Shortness Of Breath Or Wheezing Albuterol/Ipratropium (Albuterol/Iprat 2.5/0.5mg 3 Ml Ampul.Neb) 3 ml INHALE Q6H PRN PRN Reason: Shortness Of Breath Artificial Tears (Artificial Tears 15 Ml Drops) 2 drop EYE-LEFT TID [facility] Last Admin: 04/01/23 20:30 Dose: Not Given Documented By: CARLOS Non-Admin Reason: Med Not Available Baclofen (Baclofen 10 Mg Tablet) 15 mg PO Q8H [facility] Last Admin: 04/02/23 03:07 Dose: Not Given Documented By: DAMI Non-Admin Reason: Patient Asleep Bisacodyl (Bisacodyl 10 Mg Supp.Rect) 10 mg [place] DAILY PRN PRN Reason: Constipation Carbamazepine (Carbamazepine 100 Mg Tab.Chew) 150 mg PO DAILY [facility] Carbamazepine (Carbamazepine 100 Mg Tab.Chew) 300 mg PO BEDTIME [facility] Last Admin: 04/01/23 20:29 Dose: 300 mg Documented By: CARLOS Docusate Sodium (Docusate Sodium 100 Mg Capsule) 100 mg PO BID [facility] Last Admin: 04/01/23 20:27 Dose: 100 mg Documented By: CARLOS Enoxaparin Sodium (Enoxaparin Sodium 40 Mg/0.4 Ml Syringe) 40 mg SUBCUT Q24H [facility] Last Admin: 04/01/23 20:27 Dose: 40 mg Documented By: CARLOS Fluoxetine HCl (Fluoxetine Hcl 20 Mg Capsule) 20 mg PO DAILY [facility] Fluticasone/Vilanterol (Fluticasone/Vilanterol 100/25 Blst.W.Dev) 1 puff INHALE RDAILY [facility] Loratadine (Loratadine 10 Mg Tablet) 10 mg PO BEDTIME [facility] Last Admin: 04/01/23 20:28 Dose: 10 mg Documented By: CARLOS Magnesium Hydroxide (Milk Of Magnesia 30 Ml Oral.Susp) 30 ml PO DAILY PRN PRN Reason: Constipation Ondansetron HCl (Ondansetron Hcl 4 Mg/2 Ml Vial) 4 mg IVPUSH Q8H PRN PRN Reason: Nausea and Vomiting Polyethylene Glycol (Polyethylene Glycol 3350 17 Gm Powd.Pack) 17 gm PO DAILY [facility] Senna (Sennosides 8.6 Mg Tablet) 17.2 mg PO BEDTIME [facility] Last Admin: 04/01/23 20:28 Dose: 17.2 mg Documented By: CARLOS Sodium Chloride (0.9 % Sodium Chloride Flush 3 Ml Syringe) 3 ml IVFLUSH QSHIFT [facility] Last Admin: 04/02/23 08:31 Dose: Not Given Documented By: CAMI Non-Admin Reason: IV Running Tamsulosin HCl (Tamsulosin Hcl 0.4 Mg Capsule) 0.4 mg PO BEDTIME [facility] Tizanidine HCl (Tizanidine Hcl 4 Mg Tablet) 10 mg PO BEDTIME [facility] Last Admin: 04/01/23 20:29 Dose: 10 mg Documented By: CARLOS Labs 04/01/23 14:37 04/01/23 14:37 Labs: Laboratory Results - last 24 hr 04/01/23 04/01/23 04/01/23 14:08 14:37 14:47 MCV 90.9 MCH 30.7 MCHC 33.8 RDW 12.1 Plt Count 225 MPV 9.1 L Immature Gran % (Auto) 0.4 Neut % (Auto) 86.5 H Lymph % (Auto) 5.6 L [place] % (Auto) 5.2 Eos % (Auto) 2.0 Baso % (Auto) 0.3 Lymph # (Auto) 0.6 L [place] # (Auto) 0.6 Eos # (Auto) 0.2 Baso # (Auto) 0.0 Abs Immat Gran (auto) 0.04 H Absolute Neuts (auto) 9.3 H Absolute Nucleated RBC 0.000 Nucleated RBC % (auto) 0.0 Hold Purple Top SEE NOTE PT 12.9 Whole Blood PT 13.2 INR 1.1 Whole Blood INR 1.1 APTT 31.8 Anion Gap 15 Estim Creat Clear Calc 112.2 Estimated GFR > 60 POC Glucose 109 Random Glucose 112 Lactic Acid 0.8 Calcium 9.8 Magnesium 1.9 Total Bilirubin 0.4 Direct Bilirubin 0.1 AST 21 ALT 25 Alkaline Phosphatase 94 Total Creatine Kinase 101 Total Protein 7.3 Albumin 4.1 Urine Color Yellow Urine Appearance Clear Urine pH 6.5 Ur Specific [place] 1.020 Urine Protein 100 (2+) H Urine Glucose (UA) Negative Urine Ketones Negative Urine Blood Small (1+) H Urine Nitrite Negative Ur Leukocyte Esterase Small (1+) H Urine RBC 3-5 H Urine WBC 6-10 Ur Squamous Epith Cells 3-5 Urine Bacteria None Seen Hyaline Casts 6-10 Granular Casts Present Salicylates Urine Opiates Screen Not Detected Urine Fentanyl Screen Not Detected Acetaminophen Ur Barbiturates Screen Not Detected Carbamazepine Ur Phencyclidine Scrn Not Detected Ur Amphetamines Screen Not Detected U Benzodiazepines Scrn Not Detected Urine Cocaine Screen Not Detected U Marijuana (THC) Screen Not Detected 04/01/23 04/01/23 19:38 21:56 MCV MCH MCHC RDW Plt Count MPV Immature Gran % (Auto) Neut % (Auto) Lymph % (Auto) [place] % (Auto) Eos % (Auto) Baso % (Auto) Lymph # (Auto) [place] # (Auto) Eos # (Auto) Baso # (Auto) Abs Immat Gran (auto) Absolute Neuts (auto) Absolute Nucleated RBC Nucleated RBC % (auto) Hold Purple Top PT Whole Blood PT INR Whole Blood INR APTT Anion Gap Estim Creat Clear Calc Estimated GFR POC Glucose 189 H Random Glucose Lactic Acid Calcium Magnesium Total Bilirubin Direct Bilirubin AST ALT Alkaline Phosphatase Total Creatine Kinase Total Protein Albumin Urine Color Urine Appearance Urine pH Ur Specific [place] Urine Protein Urine Glucose (UA) Urine Ketones Urine Blood Urine Nitrite Ur Leukocyte Esterase Urine RBC Urine WBC Ur Squamous Epith Cells Urine Bacteria Hyaline Casts Granular Casts Salicylates < 5.0 L Urine Opiates Screen Urine Fentanyl Screen Acetaminophen < 17 Ur Barbiturates Screen Carbamazepine 6.3 Ur Phencyclidine Scrn Ur Amphetamines Screen U Benzodiazepines Scrn Urine Cocaine Screen U Marijuana (THC) Screen Assessment and Plan (1) Hypotension: Status: Acute Plan d2 57yo M LTC resident of [facility] with frontotemporal neurocognitive disorder, hx anoxic brain injury, schizoaffective disorder, seizure disorder, and BPH sent in by SNF for R-sided weakness though no further history available no R-sided weakness noted, but was hypotensive to 73/30 and admitted under observation hypotension - unclear cause- autonomic instability vs dehydration? resolved; d/c IV fluids. follow BCx + UCx. check AM cortisol + TSH seizure disorder - continue Tegretol, level therapeutic spasticity - continue baclofen schizoaffective disorder - continue fluoxetine + tizanidine COPD not in acute exacerbation - continue Breo, prn nebs BPH - continue finasteride + tamsulosin VTE ppx - LMWH dispo - return to [facility], possibly tomorrow In my clinical judgment, the patient requires continued inpatient hospitalization for the following reasons: BP monitoring, follow cultures Time Spent With Patient Time: Total time managing care of this patient today ___40_ minutes. Quality Stroke Does the patient have a stroke diagnosis?: No VTE Prior VTE?: No VTE Risk Level:: Medical - moderate - high VTE Device Contraindication: Treatment Not Indicated VTE Drug Contraindication: N/A - Med Ordered
--- NOTE | 2023-04-02 11:20 | MHC.CM.PN ---
OBS 04/02/23: LTC resident of [facility]. Per Guardian, D/C plan is to return to [facility]. CM to follow.
--- NOTE | 2023-04-02 11:21 | MHC.CM.PN ---
Annabella Ruth requesting OBS Form be sent to her address: [address] [place] [address] Nadeen Sims. [id number]. She is currently residing in [facility] in a SNF, but is being D/C'd soon. Will send OBS Form to address requested. CM to follow.
[2023-04-02] MEDS: carBAMazepine 100 MG TAB.CHEW 150 MG PO (11:45)
[2023-04-02] MEDS: FLUoxetine HCl 20 MG CAPSULE PO (11:46)
[2023-04-02] MEDS: Baclofen 10 MG TABLET 15 MG PO ×2 (11:47→18:41)
[2023-04-02] MEDS: Enoxaparin Sodium 40 MG/0.4 ML SYRINGE SUBCUT (18:40)
[2023-04-02] MEDS: carBAMazepine 100 MG TAB.CHEW 300 MG PO (21:49)
[2023-04-02] MEDS: Sennosides 8.6 MG TABLET 17.2 MG PO (21:49)
[2023-04-02] MEDS: Tamsulosin HCL 0.4 MG CAPSULE PO (21:50)
[2023-04-02] MEDS: Loratadine 10 MG TABLET PO (21:50)
[2023-04-02] MEDS: TiZANidine HCL 4 MG TABLET 10 MG PO (21:50)
[2023-04-02] MEDS: 0.9 % Sodium Chloride Flush 3 ML SYRINGE IVFLUSH (21:51)
[2023-04-03] VITALS (8 sets, daily range): BP systolic 134–186; BP diastolic 67–92; PULSE 45–84; RESP 16–20; TEMP 36–37; O2SAT 93–98
--- NOTE | 2023-04-03 06:29 | PC.NURSE ---
pts heart rate sustaining in the 40s and has been dropping to the mid 30s when sleeping. pt is asymptomatic. bp taken, 186/86. notified, no further orders placed.
[2023-04-03 08:00] LABS: TSH reflex Free T4 1.17 uIU/mL (0.32-4.0)
[2023-04-03] MEDS: Fluticasone/Vilanterol 100/25 BLST.W.DEV 1 PUFF INHALE (08:04)
[2023-04-03] MEDS: 0.9 % Sodium Chloride Flush 3 ML SYRINGE IVFLUSH ×2 (08:24→21:47)
[2023-04-03] MEDS: polyethylene glycoL 3350 17 GM POWD.PACK PO (08:24)
[2023-04-03] MEDS: FLUoxetine HCl 20 MG CAPSULE PO (08:24)
[2023-04-03] MEDS: carBAMazepine 100 MG TAB.CHEW 150 MG PO (08:24)
--- NOTE | 2023-04-03 10:46 | MHC.CM.PN ---
EMR reviewed and per MD rounds pt is not medically cleared for D/C due to BP monitoring, and pending cultures. CM will continue to follow.
[2023-04-03] MEDS: Baclofen 10 MG TABLET 15 MG PO ×2 (13:14→21:42)
--- NOTE | 2023-04-03 14:02 | HO.PM.IMPN ---
Subjective Subjective Date of Service: 04/04/23 Interval History: Unable to obtain meaningful history due to garbled speech, awake alert sitting in bed, as per nurse tolerating diet no nausea, no vomiting, no abdominal pain ,noted to have elevated blood pressures. Review of Systems Unable to obtain due to mental status Physical Exam Vital Signs: Vital Signs: Last Vital Signs Temp 97.0 F 04/03/23 10:56 Pulse 53 04/03/23 10:56 Resp 20 04/03/23 10:56 BP 134/69 04/03/23 10:56 Pulse Ox 98 04/03/23 10:56 O2 Del Method Room Air 04/03/23 10:56 O2 Flow Rate 2 04/01/23 20:00 BMI result Body Mass Index 32.2 Const: Other: Gen: Awake alert, in no acute distress HEENT: sclera anicteric, moist mucus membranes Neck: supple Lungs: clear to auscultation bilaterally Heart: regular rate and rhythm, no murmurs Abd: soft, non-tender, non-distended Ext: no edema Skin: warm/well-perfused Neuro: alert, garbled speech, moves all extremities Psych: unable to assess insight Objective Data Active Medications Acetaminophen (Acetaminophen 325 Mg Tablet) 650 mg PO Q6H PRN PRN Reason: Pain, Mild (Pain Scale 1-3) Albuterol Sulfate (Albuterol Sulfate 90 Mcg 8 Gm Inhaler) 1 puff INHALE Q6H PRN PRN Reason: Shortness Of Breath Or Wheezing Albuterol/Ipratropium (Albuterol/Iprat 2.5/0.5mg 3 Ml Ampul.Neb) 3 ml INHALE Q6H PRN PRN Reason: Shortness Of Breath Artificial Tears (Artificial Tears 15 Ml Drops) 2 drop EYE-LEFT TID [facility] Last Admin: 04/03/23 12:46 Dose: Not Given Documented By: CAMI Non-Admin Reason: Patient Refused Baclofen (Baclofen 10 Mg Tablet) 15 mg PO Q8H [facility] Last Admin: 04/03/23 13:14 Dose: 15 mg Documented By: CAMI Bisacodyl (Bisacodyl 10 Mg Supp.Rect) 10 mg [place] DAILY PRN PRN Reason: Constipation Carbamazepine (Carbamazepine 100 Mg Tab.Chew) 150 mg PO DAILY [facility] Last Admin: 04/03/23 08:24 Dose: 150 mg Documented By: CAMI Carbamazepine (Carbamazepine 100 Mg Tab.Chew) 300 mg PO BEDTIME [facility] Last Admin: 04/02/23 21:49 Dose: 300 mg Documented By: CHACORTA Docusate Sodium (Docusate Sodium 100 Mg Capsule) 100 mg PO BID [facility] Last Admin: 04/03/23 08:25 Dose: Not Given Documented By: CAMI Non-Admin Reason: Patient Refused Enoxaparin Sodium (Enoxaparin Sodium 40 Mg/0.4 Ml Syringe) 40 mg SUBCUT Q24H [facility] Last Admin: 04/02/23 18:40 Dose: 40 mg Documented By: CAMI Fluoxetine HCl (Fluoxetine Hcl 20 Mg Capsule) 20 mg PO DAILY [facility] Last Admin: 04/03/23 08:24 Dose: 20 mg Documented By: CAMI Fluticasone/Vilanterol (Fluticasone/Vilanterol 100/25 Blst.W.Dev) 1 puff INHALE RDAILY [facility] Last Admin: 04/03/23 08:04 Dose: 1 puff Documented By: MICHELLE Loratadine (Loratadine 10 Mg Tablet) 10 mg PO BEDTIME [facility] Last Admin: 04/02/23 21:50 Dose: 10 mg Documented By: CHACORTA Magnesium Hydroxide (Milk Of Magnesia 30 Ml Oral.Susp) 30 ml PO DAILY PRN PRN Reason: Constipation Ondansetron HCl (Ondansetron Hcl 4 Mg/2 Ml Vial) 4 mg IVPUSH Q8H PRN PRN Reason: Nausea and Vomiting Polyethylene Glycol (Polyethylene Glycol 3350 17 Gm Powd.Pack) 17 gm PO DAILY [facility] Last Admin: 04/03/23 08:24 Dose: 17 gm Documented By: CAMI Senna (Sennosides 8.6 Mg Tablet) 17.2 mg PO BEDTIME [facility] Last Admin: 04/02/23 21:49 Dose: 17.2 mg Documented By: CHACORTA Sodium Chloride (0.9 % Sodium Chloride Flush 3 Ml Syringe) 3 ml IVFLUSH QSHIFT [facility] Last Admin: 04/03/23 08:24 Dose: 3 ml Documented By: CAMI Tamsulosin HCl (Tamsulosin Hcl 0.4 Mg Capsule) 0.4 mg PO BEDTIME [facility] Last Admin: 10/01/23 21:50 Dose: 0.4 mg Documented By: CHACORTA Tizanidine HCl (Tizanidine Hcl 4 Mg Tablet) 10 mg PO BEDTIME [facility] Last Admin: 04/02/23 21:50 Dose: 10 mg Documented By: CHACORTA Labs 04/01/23 14:37 04/01/23 14:37 Labs: Laboratory Results - last 24 hr 04/03/23 06:38 Hold Purple Top SEE NOTE TSH 1.17 Random Cortisol 6.0 Microbiology Microbiology Results: Microbiology 04/01/23 15:11 Urine Culture - Final Urine Catheterized - Reynolds Catheter No growth. 04/01/23 14:47 Blood Culture - Preliminary Blood - Venous No growth after 24 hours. 04/01/23 14:37 Blood Culture - Preliminary Blood - Venous No growth after 24 hours. Assessment and Plan (1) Hypotension: Status: Acute (2) Dehydration: Status: Acute Plan 57yo M LTC resident of [facility] with frontotemporal neurocognitive disorder, hx anoxic brain injury, schizoaffective disorder, seizure disorder, and BPH sent in by SNF for R-sided weakness though no further history available, no R-sided weakness noted, but was hypotensive to 73/30 and admitted under observation hypotension - unclear cause- autonomic instability vs dehydration? On baclofen that can also cause hypotension, Not on antihypertensives, now with elevated blood pressures, s/p IV fluids, BCx + UCx negative, Normal TSH, AM cortisol 6 Follow BP for next 24 hours seizure disorder - continue Tegretol, level therapeutic spasticity - continue baclofen+ tizanidine schizoaffective disorder - continue fluoxetine COPD not in acute exacerbation - continue Breo, prn nebs BPH -chronic Reynolds catheter, continue finasteride + tamsulosin VTE ppx - LMWH dispo - return to [facility] In my clinical judgment, the patient requires continued inpatient hospitalization for the following reasons: BP monitoring, follow cultures Time Spent With Patient Time: Total time managing care of this patient today ____ minutes. Quality Stroke Does the patient have a stroke diagnosis?: No VTE Prior VTE?: No VTE Risk Level:: Medical - moderate - high VTE Device Contraindication: Treatment Not Indicated VTE Drug Contraindication: N/A - Med Ordered
[2023-04-03] MEDS: TiZANidine HCL 4 MG TABLET 10 MG PO (21:40)
[2023-04-03] MEDS: carBAMazepine 100 MG TAB.CHEW 300 MG PO (21:41)
[2023-04-03] MEDS: Sennosides 8.6 MG TABLET 17.2 MG PO (21:42)
[2023-04-03] MEDS: Tamsulosin HCL 0.4 MG CAPSULE PO (21:43)
[2023-04-03] MEDS: Loratadine 10 MG TABLET PO (21:43)
[2023-04-03] MEDS: Enoxaparin Sodium 40 MG/0.4 ML SYRINGE SUBCUT (21:44)
[2023-04-04 03:27] VITALS: BP 158/80; PULSE 69; RESP 18; TEMP 37.1; O2SAT 97
[2023-04-04] MEDS: Baclofen 10 MG TABLET 15 MG PO ×2 (04:37→11:46)
[2023-04-04 07:17] VITALS: BP 160/70; PULSE 59; RESP 20; TEMP 36.1; O2SAT 97
[2023-04-04] MEDS: Docusate Sodium 100 MG CAPSULE PO (07:58)
[2023-04-04] MEDS: polyethylene glycoL 3350 17 GM POWD.PACK PO (07:58)
[2023-04-04] MEDS: FLUoxetine HCl 20 MG CAPSULE PO (07:58)
[2023-04-04] MEDS: carBAMazepine 100 MG TAB.CHEW 150 MG PO (07:59)
[2023-04-04] MEDS: 0.9 % Sodium Chloride Flush 3 ML SYRINGE IVFLUSH (07:59)
[2023-04-04] MEDS: Fluticasone/Vilanterol 100/25 BLST.W.DEV 1 PUFF INHALE (08:07)
[2023-04-04 08:09] VITALS: PULSE 59; RESP 18; O2SAT 97
[2023-04-04 10:59] VITALS: BP 161/77; PULSE 63; RESP 20; TEMP 36.5; O2SAT 96
--- NOTE | 2023-04-04 11:02 | PM.DS ---
DS: Providers Provider Date of Service: 04/04/23 Date of admission: 04/02/23 15:53 Primary care physician: Unknown Physician DS: Diagnosis Discharge Diagnosis (1) Hypotension: Status: Acute (2) Dehydration: Status: Acute DS: Summary Hospital Course Hospital Course: History of presenting illness: Date of Service: 04/01/23 < Attending physician on admission: Bobbi Schulte <NICOLE Braxton - Last Filed: 04/01/23 19:48> Chief Complaint: Right-sided weakness <NICOLE Braxton - Last Filed: 04/01/23 19:48> Pt is a 57-year-old male with a PMH significant for?frontal temporal neural cognitive disorder, seizures, anoxic brain injury, COPD, dysphagia, BPH, hepatitis-C, HTN, polyneuropathy, hx of obstructive uropathy, depression, and schizoaffective disorder who presents to the ED from [facility] SN[facility] for evaluation of apparent right-sided weakness. Patient primarily bedridden/wheelchair bound with significant neurocognitive disorder, alert and oriented to self only. Patient with limited means of making his needs known, it is very difficult to understand. Have attempted multiple times to get a hold of SNF but have yet to be able to speak to nursing staff. HPI is thus very limited and taking exclusively from chart review. Apparently EMS handoff said that SNF staff head found patient with right-sided weakness with unclear last well-known time, possibly earlier this morning or last night. It was not specified whether patient was also altered/confused. ?Of note, patient was last seen at the hospital 2 days prior when he presented for unresponsive, lethargy, likely breakthrough seizure. In the ED patient was afebrile but hypotensive as low as 73/30, satting at 94% on RA. Labs were grossly unremarkable. Stable H&H at 13.8/40.8. No leukocytosis. Coags WNL. Electrolytes WNL. Renal function, hepatic function WNL. UA Likely negative for UTI. CXR showed no evidence for acute disease in the chest. CT?of head showing no acute intracranial pathology. EKG demonstrated sinus rhythm without evidence of ST elevations or depressions. Pt was treated with 1 L IVF. Pt will be admitted to the hospital under observation on telemetry for evaluation and further workup of possible seizure versus TIA versus hypotension. Hospital course: 57yo Male LTC resident of [facility] with frontotemporal neurocognitive disorder, hx anoxic brain injury, schizoaffective disorder, seizure disorder, and BPH sent in by SNF for R-sided weakness though no further history available, no R-sided weakness noted, but was hypotensive to 73/30 and admitted to telemetry with a diagnosis of hypotension patient treated with IV fluid blood pressure improved, cause of hypotension remains unclear with normal TSH, low normal cortisol of 6, normally urine and blood cultures, blood pressure improved and noted to have high blood pressure readings, patient not on antihypertensive medications, recommend to follow blood pressure closely, patient on baclofen that can also cause hypotension but since now has high blood pressure will continue current dose of baclofen. seizure disorder - continue Tegretol, level therapeutic spasticity - continue baclofen+ tizanidine schizoaffective disorder - continue fluoxetine COPD not in acute exacerbation- continue Breo, prn nebs BPH -chronic Reynolds catheter, continue finasteride + tamsulosin Time Spent with Patient Time attestation: Total time managing care of this patient today ____ minutes. Discharge coordination time: Greater than 30 minutes Quality: Safe Use of Opioids Does Pt have an Active Cancer Diagnosis on the Problem List?: No Quality: Stroke Does the patient have a stroke diagnosis?: No Physical Exam Vital Signs: Vital Signs: Last Vital Signs Temp 97.7 F 04/04/23 10:59 Pulse 63 04/04/23 10:59 Resp 20 04/04/23 10:59 BP 161/77 H 04/04/23 10:59 Pulse Ox 96 04/04/23 10:59 O2 Del Method Room Air 04/04/23 10:59 O2 Flow Rate 2 04/01/23 20:00 BMI result Body Mass Index 32.2 Const: Other: Gen: Awake alert, in no acute distress HEENT: sclera anicteric, moist mucus membranes Neck: supple Lungs: clear to auscultation bilaterally Heart: regular rate and rhythm, no murmurs Abd: soft, non-tender, non-distended Ext: no edema Skin: warm/well-perfused Neuro: alert, garbled speech, moves all extremities Psych: unable to assess insight DS: Data Data Completed and Pending Labs on day of discharge: Preliminary micro results at discharge 04/01/23 14:47 Blood Culture - Preliminary Blood - Venous No growth after 48 hours. 04/01/23 14:37 Blood Culture - Preliminary Blood - Venous No growth after 48 hours. Discharge Plan Discharge Anticipated Discharge Date/Time: 04/04/23 10:54 Patient Disposition: Xfer [facility] Discharge Diagnosis: Hypotension Referrals: Physician,Unknown J [Primary Care Provider] - 1 Week Discharge Medications: Continued tizanidine 2 mg Tablet 10 mg PO BEDTIME docusate sodium 100 mg Capsule 100 mg PO BID acetaminophen 325 mg Tablet 650 mg PO Q6H PRN (Reason: PAIN OR FEVER) Rx Instructions: fever above 101 carbamazepine 100 mg Tablet,Chewable 150 mg PO DAILY carbamazepine 100 mg Tablet,Chewable 300 mg PO BEDTIME albuterol sulfate 90 mcg/actuation Hfa Aerosol Inhaler 1 puff INHALATION Q6H PRN (Reason: Shortness Of Breath Or Wheezing) ketoconazole 2 % Cream 1 appl TOPICAL BID Rx Instructions: USE ON FACE, SCALP AND CHEST finasteride 5 mg Tablet 5 mg PO DAILY artificial tear(yeswd-epo-cjl) 0.1-0.3-0.2 % Drops 2 drp OPHTHALMIC-LEFT TID Rx Instructions: START ON 03/18/23, FOR 5 DAYS cholecalciferol (vitamin D3) [Optimal D3] 1,250 mcg (50,000 unit) Capsule 1,250 mcg PO QMONTH Rx Instructions: ADMINISTER IN THE MORNING OF EACH FOURTH DAY OF THE MONTH polyethylene glycol 3350 [Miralax] 17 gram/dose powder 17 g PO DAILY fluticasone furoate-vilanterol [Breo Ellipta] 100-25 mcg/dose blister with device 1 inh inhalation DAILY Rx Instructions: RINSE MOUTH AFTER EACH USE fluoxetine 20 mg capsule 20 mg PO DAILY tamsulosin 0.4 mg capsule 0.4 mg PO BEDTIME Zyrtec 10 mg capsule 10 mg PO BEDTIME magnesium hydroxide [Milk of Magnesia] 400 mg/5 mL suspension 30 ml PO DAILY PRN (Reason: Constipation) Rx Instructions: NO BM IN 3 DAYS bisacodyl [Dulcolax (bisacodyl)] 10 mg suppository 10 mg [place] DAILY PRN (Reason: Constipation) Rx Instructions: US IF MOM IS INEFFECTIVE senna 8.6 mg capsule 17.2 mg PO BEDTIME ipratropium-albuterol 0.5 mg-3 mg(2.5 mg base)/3 mL solution for nebulization 3 ml inhalation Q6H PRN (Reason: Shortness Of Breath) baclofen 5 mg tablet 15 mg PO Q8H (DME) CPAP Device See Rx Instructions .Route Rx Instructions: As directed Discharge Orders: Discharge Order (Routine); Ordered 04/04/23 Ordered By: Jethro Tran Diet: Advance to usual diet Activity on Discharge: As tolerated Stand Alone Forms: Patient Portal Discharge page Care Plan Goals: Hypotension resolved, unclear cause question dehydration question related to baclofen or autonomic instability Continue seizure medication Health Concerns: Continue all home medications as before Seizure disorder no seizure-like activity noted Spasticity on baclofen and tizanidine Plan of Treatment: Outpatient follow-up with primary care physician Assessment: As above
--- NOTE | 2023-04-04 11:21 | MHC.CM.PN ---
Addendum entered by Suzette Ramirez 04/04/23 11:27: ERROR: NO IMM REQUIRED. Original Note: DP: PT HAS BEEN MEDICALLY CLEARED FOR DC BACK TO [facility]. RN NOTIFIED. CENTER NOTIFIED. BLS TRANSPORT BOOKED FOR 1:30 PM VIA [facility]. IMM ADDRESSED WITH GUARDIAN/MOTHER. WHITE COPY TO BE MAILED.
--- NOTE | 2023-04-04 14:07 | P.CDIM_ITS ---
PROVIDER RESPONSE TEXT: To clarify, the appropriate diagnosis supported by the clinical indicators: Clinically unable to determine (explain): check with admitting provider QUERY TEXT: PHYSICIAN'S DOCUMENTATION REQUEST Date of Query: 04/04/2023 08:20 AM EDT Patient Name: Harjinder Ruth Admit Date: 04/02/2023 Dear Jethro Tran, A review of the medical record indicates additional documentation may be needed. Please review below and update the documentation accordingly. The patient's infectious clinical indicators include: H&P - Patient will require a hospitalization of at least two midnights for management of acute UTI wi th Sepsis. IV antibiotics, close monitoring. WBC wnl Temp normal LA wnl RR normal HR 21 Based on the above information and the recognized standard for sepsis, could you please clarify if th is diagnoses is still accurate and reflective of the patient's condition to ensure quality of the medical record. Sepsis is/was present and is a clinical diagnosis based on After study (the condition) has been ruled out Other (explain)Clinically unable to determine (explain)Thank you, Lori Bonilla, CCS, CDIS Use of terms such as suspected, likely, concern for, or probable (associated with a specific diagnosi s that is being evaluated, monitored, or treated as if it exists) are acceptable and can be coded in the inpatient se tting, when documented at the time of discharge. Please use your independent medical judgment in providing your response. THIS QUERY IS PART OF THE PERMANENT MEDICAL RECORD
--- NOTE | 2023-04-04 14:07 | P.CDIM_ITS ---
PROVIDER RESPONSE TEXT: To clarify, the appropriate diagnosis supported by the clinical indicators: Clinically unable to determine (explain): check with admitting provider QUERY TEXT: PHYSICIAN'S DOCUMENTATION REQUEST Date of Query: 04/04/2023 08:24 AM EDT Patient Name: Harjinder Ruth Admit Date: 04/02/2023 Dear Jethro Tran, A review of the medical record indicates additional documentation may be needed. Please review below and update the documentation accordingly. Clinical Indicators: H&P: Patient requires inpatient stay for two midnights for management of UTI, Sepsis and metabolic en cephalopathy. The diagnosis of metabolic encephalopathy was documented on H&P but is not consistently noted in subs equent documentation. Please clarify the following: Diagnosis is ruled out Diagnosis was present on admission and is still being monitored, evaluated, or treated Diagnosis is resolved Diagnosis is still a likely, suspected, probable diagnosis Other (explain)Clinically unable to determine (explain)Thank you, Lori Bonilla, CCS, CDIS Use of terms such as suspected, likely, concern for, or probable (associated with a specific diagnosi s that is being evaluated, monitored, or treated as if it exists) are acceptable and can be coded in the inpatient se tting, when documented at the time of discharge. Please use your independent medical judgment in providing your response. THIS QUERY IS PART OF THE PERMANENT MEDICAL RECORD
== END 2023-04-04 14:21 | DRG 207 ==
LOC: HO.ED 17:14 → HO.EDOVER 19:00 → HO.IMC 21:55
PROVIDERS: Family Medicine; Physician Assistant Medical; Student in an Organized Health Care Education/Training Program; Admitting Provider Student in an Organized Health Care Education/Training Program; Emergency Provider Emergency Medicine; PCP Emergency Medicine; Visit Provider Hospitalist
DX: I95.9 Hypotension, unspecified (principal); G31.09 Other frontotemporal neurocognitive disorder; E86.0 Dehydration; F02.80 Dementia in other diseases classified elsewhere, unspecified severity, without behavioral disturbance, psychotic disturbance, mood disturbance, and anxiety; J44.9 Chronic obstructive pulmonary disease, unspecified; N40.0 Benign prostatic hyperplasia without lower urinary tract symptoms; G40.909 Epilepsy, unspecified, not intractable, without status epilepticus; R25.2 Cramp and spasm; Z79.51 Long term (current) use of inhaled steroids; Z79.899 Other long term (current) drug therapy
CPT/HCPCS: 36415; 70450; 71045; 80048; 80076; 80143; 80156; 80179; 80307; 81001; 82533; 82550; 82947; 83605; 83735; 84443; 84484; 85025; 85610; 85730; 87040; 87086; 93005; 99222; 99285; C1758; J1650

== ENCOUNTER → 2023-04-01 18:38 | Outpatient (BNV) | payer MEDICAID, SELFPAY | PROVIDERS: Admitting Provider Student in an Organized Health Care Education/Training Program; Emergency Provider Emergency Medicine; Visit Provider Student in an Organized Health Care Education/Training Program | DX: I95.9 Hypotension, unspecified (principal); E86.0 Dehydration | CPT/HCPCS: 99222; 99232; 99239 ==

== ENCOUNTER 2023-11-02 08:55 | Inpatient (IN) | payer MEDICAID, SELFPAY ==
[2023-11-02] VITALS (14 sets, daily range): BP systolic 82–128; BP diastolic 46–72; PULSE 40–71; RESP 12–20; TEMP 33.5–36.1; O2SAT 93–98; BMI 33.7
--- NOTE | ~2023-11-02 | CT_ITS ---
EXAMINATION: CT HEAD WITHOUT CONTRAST CLINICAL INFORMATION: Change in mental status. COMPARISON: 04/01/2023 and 03/30/2023 TECHNIQUE: Contiguous axial imaging was performed from the skull base to vertex without intravenous administration of contrast. This CT examination was performed using dose optimization techniques as appropriate, variously including the following: *Automated exposure control *Adjustment of mA and/or kV according to patient size (this includes techniques or standardized protocols for targeted exams where dose is matched to indication/reason for exam; i.e. extremities or head) *Use of iterative reconstruction technique DLP: 657 mGy-cm FINDINGS: Motion artifact technically degrades image quality. There is no evidence of acute intracranial hemorrhage or territorial infarction. No mass effect or midline shift is seen. Richards to white matter differentiation is preserved. No extra-axial fluid collections are identified. No hydrocephalus. The osseous structures and soft tissues are intact. The mastoid air cells and visualized portions of the paranasal sinuses are well aerated. CT/CT head/brain wo IV con IMPRESSION: No acute intracranial pathology.
--- NOTE | ~2023-11-02 | XR_ITS ---
EXAMINATION: XR CHEST CLINICAL INFORMATION: Weakness and difficulty breathing COMPARISON: 04/01/2023 TECHNIQUE: Frontal view of the chest was obtained. FINDINGS: Poor inspiratory effort with atelectasis at the left base. Upper lungs clear. Moderate enlargement of the cardiac silhouette with normal caliber pulmonary vessels. XR/XR chest 1V IMPRESSION: No active disease given the technical limitations.
--- NOTE | 2023-11-02 09:01 | ECG_ITS ---
Test Reason : BRADYCARDIA Blood Pressure : / mmHG Vent. Rate : 060 BPM Atrial Rate : 060 BPM P-R Int : 192 ms QRS Dur : 090 ms QT Int : 448 ms P-R-T Axes : 048 002 035 degrees QTc Int : 448 ms Normal sinus rhythm Minimal voltage criteria for LVH, may be normal variant ( R in aVL ) Borderline ECG When compared with ECG of 01-APR-2023 14:14, No significant change was found Referred By: Crissy Batista Electronically Signed By:RAD MERCADO
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
[2023-11-02 09:32] LABS: Glucose, Whole Blood 174 mg/dL (60-115)
[2023-11-02 09:34] LABS: MANUAL DIFF FLAG NO
[2023-11-02 09:36] LABS: Basophils Percent Auto 0.3 % (0-2); Eosinophils Absolute Auto 0.2 X10*3/uL (0.0-0.4); Hematocrit 37.5 % (42.0-52.0); Hemoglobin 13.2 g/dl (14.0-18.0); Imm Gran Abs Auto 0.03 X10*3/uL (0.00-0.03); Imm Gran Pct Auto 0.5 % (0.0-0.4); Lymphocytes Absolute Auto 0.7 X10*3/uL (1.2-4.9); Lymphocytes Percent Auto 10.5 % (20-40); Mean Corpuscular HGB Conc 35.2 g/dl (31.0-36.0); Mean Corpuscular Hemoglobin 32.8 pg (27.0-33.0); Mean Corpuscular Volume 93.1 fL (80.0-98.0); Mean Platelet Volume 9.3 fL (9.4-12.4); Monocytes Absolute Auto 0.3 X10*3/uL (0.1-1.2); Monocytes Percent Auto 4.5 % (2-11); Neutrophils Absolute Auto 5.2 x10*3/uL (2.0-8.3); Neutrophils Percent Auto 81.2 % (45-73); Platelet Count 177 X10*3/uL (160-400); Red Blood Count 4.03 X10*6/uL (4.60-5.80); Red Cell Distribution Width 11.8 % (11.0-16.0); White Blood Count 6.4 X10*3/uL (4.8-10.8)
[2023-11-02 09:39] LABS: VBG Base Excess 2.6 mmol/L; VBG HCO3 28 mmol/L (22-26); VBG pCO2 46 mmHg; VBG pH 7.39 (7.32-7.43); VBG pO2 153 mmHg
[2023-11-02 09:40] LABS: Venous Blood Gas Refer to POC result
[2023-11-02 09:43] LABS: Prothrombin Time 12.7 SEC (11.1-13.3)
[2023-11-02] MEDS: 0.9 % Sodium Chloride 1,000 ML 999 ML IV ×3 (09:50→11:32)
[2023-11-02] MEDS: levoFLOXacin/D5W 750 MG/150 ML PIGGYBACK 100 MG IV (09:50)
[2023-11-02 09:51] LABS: Lactic Acid 1.3 mmol/L (0.5-2.0)
[2023-11-02 09:57] LABS: Appearance Urine Cloudy; Color Urine Yellow; Glucose Urine UA Negative (Negative); Leukocyte Esterase Urine Large (3+) (Negative); Nitrite Urine Positive (Negative); PH 6.5 (5.0-9.0); UMIC TRIGGER UACC YES; Urine Blood Negative (Negative); Urine Ketones Negative (Negative); Urine Protein Negative (Neg-Trace)
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
[2023-11-02 10:01] LABS: B Type Natriuretic Peptide 16 pg/mL (<100)
[2023-11-02 10:02] LABS: Bacteria Urine 4+ (None Seen); Hyaline Casts Urine 0-2 /LPF (0-2); RBC Urine 0-2 /HPF (0-2); Squamous Epithelial Cell Urine 0-2 /HPF (0-2); UACC Culture Trigger YES; WBC Urine >50 /HPF (0-5)
[2023-11-02 10:03] LABS: Alanine Aminotransferase 28 U/L (0-40); Albumin Level 3.7 g/dL (3.5-5.0); Alkaline Phosphatase 87 U/L (39-117); Anion Gap 14 (12-20); Aspartate Amino Transferase 20 U/L (5-37); Bilirubin Direct 0.1 mg/dL (0.0-0.5); Bilirubin Total 0.3 mg/dL (0.0-1.0); Blood Urea Nitrogen 18 mg/dL (9-16); C Reactive Protein 1.12 mg/dL (< or = 0.50); Calcium 9.6 mg/dL (8.4-10.2); Carbon Dioxide 24 mmol/L (22-29); Chloride 101 mmol/L (96-108); Creatinine Clr Calc Pharmacy 132.2; Estimated Glomerular Filt Rate > 60; Glucose Random 176 mg/dL (60-115); Lipase 20 U/L (8-78); Magnesium 1.6 mg/dL (1.6-2.6); Potassium 3.5 mmol/L (3.3-5.1); Sodium 135 mmol/L (135-145); Total Protein 6.8 g/dL (6.5-8.0)
[2023-11-02 10:06] LABS: Troponin-I High Sensitivity < 2.7 ng/L (<3.5-35.0)
[2023-11-02 10:08] LABS: Ammonia 51 umol/L (13-55)
[2023-11-02 10:18] LABS: Influenza A PCR NEGATIVE (Negative); Influenza B PCR NEGATIVE (Negative); Resp Syncy Virus RNA Qual PCR NEGATIVE (Negative); SARS COV2 PCR INHOUSE NEGATIVE (Negative)
[2023-11-02 10:19] LABS: Procalcitonin 0.02 ng/mL; TSH reflex Free T4 2.12 uIU/mL (0.32-4.0)
[2023-11-02 11:30] LABS: Glucose, Whole Blood 113 mg/dL (60-115)
[2023-11-02] MEDS: Hydrocortisone Sod Succ/PF 100 MG VIAL IVPUSH (11:34)
--- NOTE | 2023-11-02 12:22 | PC.NURSE ---
informed MD Batista of drop in SaO2 despite being on 2L NC from 98% to 93%. pt temp minimal improvement - plan to pack iht hot packs in addition to sanjana jesus
[2023-11-02 14:04] LABS: Glucose, Whole Blood 63 mg/dL (60-115)
[2023-11-02] MEDS: Dextrose 10 % 250 ML 750 ML IV (14:19)
--- NOTE | 2023-11-02 14:55 | PM.IMHP ---
History of Present Illness Date of Service: 11/02/23 Attending physician on admission: Lucero Pulido Chief Complaint: Lethargy, AMS Pt is a 57-year-old male with a PMH significant for?frontal temporal neural cognitive disorder, seizure disorder, anoxic brain injury, COPD, dysphagia, BPH, hepatitis-C, HTN, polyneuropathy, hx of obstructive uropathy, depression, and schizoaffective disorder who presents to the ED from [facility] for evaluation of altered mental status and lethargy after staff at facility were unable to wake him up this morning. Patient currently obtunded and nonresponsive to verbal or painful stimuli. HPI thus obtained from chart and provider review. Facility apparetntly found pt's blood gluose to be 23, treated with glucagon IM x2 doses; repeat by EMS 117. Pt was also noted to be bradycardic in 40s and given atropine 1mg by EMS. Narcan was also administered without effect. In the ED pt was found to be hypothermic as low as 92.3 and noted to have a UTI. Was placed in a Deidra Hugger. Of note, patient had a similar presentation to the hospital in 2002 with acute encephalopathy, hypothermia, and bradycardia. Was found to have Proteus UTI treated with levofloxacin. In the ED pt was hypothermic as low as 92.3, bradycardic as low as 51, and with soft BP as low as 82/46. Labs were significant for testing positive for UTI, CRP 1.12, and POC glucose as low as 63. Labs otherwise grossly unremarkable and WNL/baseline for patient. No leukocytosis. Stable H&H. No significant electrolyte abnormalities. Renal and hepatic function WNL. TSH WNL. Procalcitonin 0.02. Ammonia WNL at 51. Troponin negative. BNP WNL at 16. Tested negative for flu, RSV, and COVID. CXR showed no active disease. CT?of head showed no acute intracranial pathology. EKG demonstrated normal sinus rhythm with HR 60. Pt was placed in a Deidra Hugger and treated with IVF, hydrocortisone, dextrose, and levofloxacin. Pt will be admitted to the hospital for evaluation and treatment acute metabolic encephalopathy, bradycardia, and hypothermia in the setting of acute UTI. Review of Systems Review of Systems: Unable to obtain due to patient's mentation [facility] Medical History Encephalopathy, unspecified Essential (primary) hypertension Ataxic gait Obstructive sleep apnea (adult) (pediatric) Chronic obstructive pulmonary disease, unspecified Anoxic brain damage, not elsewhere classified Retention of urine, unspecified Benign prostatic hyperplasia without lower urinary tract symptoms Constipation, unspecified Seborrheic dermatitis, unspecified Cramp and spasm Hyperlipidemia, unspecified Unspecified convulsions Major depressive disorder, recurrent, unspecified Schizoaffective disorder, unspecified Social History Household Members: Other Household Members Other:: [place] [facility] Housing: [facility] Other:: [facility] Do you presently have visiting nurse or other home services: No Unable to assess alcohol history related to: Unable to respond Alcohol intake: never Patient Tobacco Use Status: Tobacco use Unknown Second Hand Smoke Exposure: No Use of substances other than those prescribed or required for medical reasons: Unable to respond Last Used Substance: Unknown Currently Displaying Signs/Symptoms of Drug Intoxication Withdrawal: No Advance Directives: Yes Advance Directives on File: Yes Advance Directives Date on File: 04/02/23 Do you have a plan to hurt others: No Plan Recently lost weight without trying: Unsure How much weight loss: Unsure Nutrition Risks: On aspiration precautions service: No Meds Allergies Allergy/AdvReac Type Severity Reaction Status Date / Time cephalexin Allergy Unknown Verified 11/02/23 09:05 Cephalosporins Allergy Unknown Verified 06/10/21 16:50 Active Medications: Current Medications Dextrose (D10) 250 mls @ 750 mls/hr IV Q15M PRN PRN Reason: per Hypoglycemia Standing Ord. Last Infusion: 11/02/23 14:50 Dose: Infused Home Medications ?Medication ?Instructions ?Recorded ?Confirmed ?Last Taken ?Type CPAP 01/19/23 01/24/23 Unknown History baclofen 5 mg tablet 15 mg PO Q8H 01/19/23 11/02/23 Unknown History bisacodyl 10 mg rectal suppository 10 mg VT DAILY PRN Constipation 01/19/23 11/02/23 Unknown History (Dulcolax (bisacodyl)) fluoxetine 20 mg capsule 20 mg PO DAILY 01/19/23 11/02/23 Unknown History fluticasone furoate 100 1 inh inhalation DAILY 01/19/23 11/02/23 Unknown History mcg-vilanterol 25 mcg/dose inhalation powder (Breo Ellipta) ipratropium 0.5 mg-albuterol 3 mg 3 ml inhalation Q6H PRN Shortness 01/19/23 11/02/23 Unknown History (2.5 mg base)/3 mL nebulization Of Breath soln magnesium hydroxide 400 mg/5 mL 30 ml PO DAILY PRN Constipation 01/19/23 11/02/23 Unknown History oral suspension (Milk of Magnesia) polyethylene glycol 3350 17 17 g PO DAILY 01/19/23 11/02/23 Unknown History gram/dose oral powder (Miralax) tamsulosin 0.4 mg capsule 0.4 mg PO BEDTIME 01/19/23 11/02/23 Unknown History acetaminophen 325 mg tablet 650 mg PO Q6H PRN PAIN OR FEVER 03/14/23 11/02/23 Unknown History albuterol sulfate 90 mcg/actuation 1 puff inhalation Q6H PRN 03/14/23 11/02/23 Unknown History aerosol inhaler Shortness Of Breath Or Wheezing carbamazepine 100 mg chewable 150 mg PO DAILY 03/14/23 11/02/23 Unknown History tablet carbamazepine 100 mg chewable 300 mg PO BEDTIME 03/14/23 11/02/23 Unknown History tablet cholecalciferol (vitamin D3) 1,250 1,250 mcg PO QMONTH 03/14/23 11/02/23 03/06/23 History mcg (50,000 unit) capsule (Optimal D3) finasteride 5 mg tablet 5 mg PO DAILY 03/14/23 11/02/23 Unknown History ketoconazole 2 % topical cream 1 appl topical BID 03/14/23 11/02/23 Unknown History tizanidine 2 mg tablet 10 mg PO BEDTIME 03/30/23 11/02/23 Unknown History docusate sodium 100 mg capsule 100 mg PO BID 04/01/23 11/02/23 Unknown History acetaminophen 650 mg rectal 650 mg VT Q6H PRN Fever Or Pain 11/02/23 11/02/23 Unknown History suppository calcium carbonate 600 mg-vitamin 1 tab PO BID 11/02/23 11/02/23 Unknown History D3 10 mcg (400 unit) tablet (Calcium 600 + D(3)) diazepam 5 mg/mL injection syringe 5 mg IM DAILY PRN Seizure Activity 11/02/23 11/02/23 Unknown History guaifenesin 100 mg/5 mL oral liquid 200 mg PO Q4H PRN Cough 11/02/23 11/02/23 Unknown History sennosides 8.6 mg tablet (senna) 17.2 mg PO BEDTIME 11/02/23 11/02/23 Unknown History sodium phosphates 19 gram-7 118 ml VT DAILY PRN Constipation 11/02/23 11/02/23 Unknown History gram/118 mL enema (Fleet Enema) Physical Exam Vital Signs and Narrative: Vital Signs: Last Vital Signs Temp 96.3 F L 11/02/23 14:13 Pulse 65 11/02/23 14:13 Resp 16 11/02/23 14:13 BP 126/72 11/02/23 14:13 Pulse Ox 96 11/02/23 14:13 O2 Del Method Nasal Cannula 11/02/23 14:13 O2 Flow Rate 3 11/02/23 14:13 Oxygen Flow Rate 2 11/02/23 09:03 BMI result Body Mass Index 33.7 General: Pt obtunded, not responsive to verbal or pain stimuli, in no acute distress Resp: CTA bilaterally CVS: S1, S2, RRR GI: +BS, NT, no distention Skin: Warm, dry, in Deidra Hugger Neuro: Motor grossly intact Extremities: No edema Results Labs 11/03/23 06:11 11/03/23 06:11 Labs: Laboratory Results - last 24 hr 11/02/23 11/02/23 11/02/23 09:21 09:23 09:24 MCV 93.1 MCH 32.8 MCHC 35.2 RDW 11.8 Plt Count 177 MPV 9.3 L Immature Gran % (Auto) 0.5 H Neut % (Auto) 81.2 H Lymph % (Auto) 10.5 L Wright % (Auto) 4.5 Eos % (Auto) 3.0 Baso % (Auto) 0.3 Lymph # (Auto) 0.7 L Wright # (Auto) 0.3 Eos # (Auto) 0.2 Baso # (Auto) 0.0 Abs Immat Gran (auto) 0.03 Absolute Neuts (auto) 5.2 Absolute Nucleated RBC 0.000 Nucleated RBC % (auto) 0.0 PT 12.7 INR 1.0 VBG pH VBG pCO2 VBG pO2 VBG HCO3 VBG O2 Saturation VBG Base Excess Anion Gap 14 Estim Creat Clear Calc 132.2 Estimated GFR > 60 POC Glucose 174 H Random Glucose 176 H Lactic Acid 1.3 Calcium 9.6 Magnesium 1.6 Total Bilirubin 0.3 Direct Bilirubin 0.1 AST 20 ALT 28 Alkaline Phosphatase 87 Ammonia Troponin I High Sens < 2.7 D C-Reactive Protein 1.12 H B-Natriuretic Peptide 16 Total Protein 6.8 Albumin 3.7 Lipase 20 Procalcitonin 0.02 TSH 2.12 Urine Color Urine Appearance Urine pH Ur Specific [place] Urine Protein Urine Glucose (UA) Urine Ketones Urine Blood Urine Nitrite Ur Leukocyte Esterase Urine RBC Urine WBC Ur Squamous Epith Cells Urine Bacteria Hyaline Casts Influenza Type A (PCR) Influenza Type B (PCR) RSV RNA Qual (PCR) SARS-CoV-2 RNA (RT-PCR) 11/02/23 11/02/23 11/02/23 09:31 09:32 09:48 MCV MCH MCHC RDW Plt Count MPV Immature Gran % (Auto) Neut % (Auto) Lymph % (Auto) Wright % (Auto) Eos % (Auto) Baso % (Auto) Lymph # (Auto) Wright # (Auto) Eos # (Auto) Baso # (Auto) Abs Immat Gran (auto) Absolute Neuts (auto) Absolute Nucleated RBC Nucleated RBC % (auto) PT INR VBG pH 7.39 VBG pCO2 46 VBG pO2 153 VBG HCO3 28 H VBG O2 Saturation 99.0 VBG Base Excess 2.6 Anion Gap Estim Creat Clear Calc Estimated GFR POC Glucose Random Glucose Lactic Acid Calcium Magnesium Total Bilirubin Direct Bilirubin AST ALT Alkaline Phosphatase Ammonia 51 Troponin I High Sens C-Reactive Protein B-Natriuretic Peptide Total Protein Albumin Lipase Procalcitonin TSH Urine Color Yellow Urine Appearance Cloudy Urine pH 6.5 Ur Specific [place] 1.020 Urine Protein Negative Urine Glucose (UA) Negative Urine Ketones Negative Urine Blood Negative Urine Nitrite Positive H Ur Leukocyte Esterase Large (3+) H Urine RBC 0-2 Urine WBC >50 H Ur Squamous Epith Cells 0-2 Urine Bacteria 4+ Hyaline Casts 0-2 Influenza Type A (PCR) NEGATIVE Influenza Type B (PCR) NEGATIVE RSV RNA Qual (PCR) NEGATIVE SARS-CoV-2 RNA (RT-PCR) NEGATIVE 11/02/23 11/02/23 11:23 13:56 MCV MCH MCHC RDW Plt Count MPV Immature Gran % (Auto) Neut % (Auto) Lymph % (Auto) Wright % (Auto) Eos % (Auto) Baso % (Auto) Lymph # (Auto) Wright # (Auto) Eos # (Auto) Baso # (Auto) Abs Immat Gran (auto) Absolute Neuts (auto) Absolute Nucleated RBC Nucleated RBC % (auto) PT INR VBG pH VBG pCO2 VBG pO2 VBG HCO3 VBG O2 Saturation VBG Base Excess Anion Gap Estim Creat Clear Calc Estimated GFR POC Glucose 113 63 Random Glucose Lactic Acid Calcium Magnesium Total Bilirubin Direct Bilirubin AST ALT Alkaline Phosphatase Ammonia Troponin I High Sens C-Reactive Protein B-Natriuretic Peptide Total Protein Albumin Lipase Procalcitonin TSH Urine Color Urine Appearance Urine pH Ur Specific [place] Urine Protein Urine Glucose (UA) Urine Ketones Urine Blood Urine Nitrite Ur Leukocyte Esterase Urine RBC Urine WBC Ur Squamous Epith Cells Urine Bacteria Hyaline Casts Influenza Type A (PCR) Influenza Type B (PCR) RSV RNA Qual (PCR) SARS-CoV-2 RNA (RT-PCR) Imaging Radiologist's Impressions: Impressions Head CT 11/02/23 10:10 IMPRESSION: No acute intracranial pathology. Chest X-Ray 11/02/23 10:12 IMPRESSION: No active disease given the technical limitations. Assessment and Plan (1) Encephalopathy: Status: Acute (2) Hypothermia: Qualifiers: Encounter type: initial encounter Qualified Code(s): T68.XXXA - Hypothermia, initial encounter Status: Acute (3) Acute UTI: Status: Acute Plan Pt is a 57-year-old male with a PMH significant for?frontal temporal neural cognitive disorder, seizure disorder, anoxic brain injury, COPD, dysphagia, BPH, hepatitis-C, HTN, polyneuropathy, hx of obstructive uropathy, depression, and schizoaffective disorder who presents to the ED from [facility] for evaluation of altered mental status and lethargy after staff at facility were unable to wake him up this morning. Pt will be admitted to the hospital for evaluation and treatment acute metabolic encephalopathy, bradycardia, and hypothermia in the setting of acute UTI. Acute metabolic encephalopathy in setting of acute UTI Patient with AMS, lethargy, UA positive Hx of anoxic brain injury but is typically alert, awake, and conversive CT of head negative for acute intracranial pathology Pt does not meet sepsis criteria: Hypothermia, but no tachycardia, tachypnea, or leukocytosis; lactic acid WNL at 1.3 Patient given IVF and started on broad-spectrum antibiotics in the ED Will treat with levofloxacin, started 11/02/2023 Monitor mentation Follow cultures Hypothermia Secondary to infection above Continue Deidra Hugger, discontinue once core body temperature >96 Follow vitals closely Bradycardia Likely secondary to hypothermia Pt's pulse currently normocardic at 65 Monitor on telemetry Low blood glucose SNF facility noted pt's blood sugar to be 23 POC as low as 63 in ED Pt given Dextrose in the ED Will start on D5 LR @100 mls/hr Monitor POC q6hr Unspecified seizure disorder Given NPO status, change Tegretol to Keppra 500 mg IV b.i.d. Resume Tegretol as mentation improves COPD Not in acute exacerbation Continue home inhalers, albuterol p.r.n. Hx of dysphagia Currently NPO given encephalopathy, [employer] evaluation pending BPH Resume finasteride once mentation improves Chronic constipation Resume bowel regimen once no longer NPO Full Code Attending:?Dr. Pulido DVT Prophylaxis: Lovenox Pt will require a hospitalization of at least two nights for treatment of?acute metabolic encephalopathy, bradycardia, and hypothermia in the setting acute UTI. Patient will require hospitalization for with . Quality Stroke Does the patient have a stroke diagnosis?: No VTE Prior VTE?: No VTE Risk Level:: Medical - moderate - high VTE Device Contraindication: Treatment Not Indicated VTE Drug Contraindication: N/A - Med Ordered
--- NOTE | 2023-11-02 15:07 | PHA.MEDREC ---
Pharmacy Consult ? Medication Reconciliation Pharmacy has completed the medication reconciliation, use list from [facility].
--- NOTE | 2023-11-02 15:38 | MHC.CM.ED ---
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 Return referral made in [facility] so facility can follow for d/c needs.
[2023-11-02 15:39] LABS: Glucose, Whole Blood 125 mg/dL (60-115)
[2023-11-02] MEDS: 0.9 % Sodium Chloride Flush 3 ML SYRINGE IVFLUSH (15:44)
[2023-11-02] MEDS: Dextrose 5 % and Lactated Ring 1,000 ML 100 ML IVCONT (15:44)
[2023-11-02] MEDS: Enoxaparin Sodium 40 MG/0.4 ML SYRINGE SUBCUT (19:13)
[2023-11-02] MEDS: levETIRAcetam in NaCl (iso-os) 500 MG/100 ML PIGGYBACK 400 MG IV (19:13)
[2023-11-02 20:19] LABS: Glucose, Whole Blood 130 mg/dL (60-115)
[2023-11-02 20:19] LABS: Glucose, Whole Blood 134 mg/dL (60-115)
[2023-11-02 22:16] LABS: Glucose, Whole Blood 110 mg/dL (60-115)
[2023-11-03] VITALS (10 sets, daily range): BP systolic 129–170; BP diastolic 8–76; PULSE 55–71; RESP 17–18; TEMP 34.8–37.9; O2SAT 96–99
[2023-11-03] MEDS: Dextrose 5 % and Lactated Ring 1,000 ML 100 ML IVCONT ×2 (01:56→12:22)
[2023-11-03 02:07] LABS: Glucose, Whole Blood 98 mg/dL (60-115)
[2023-11-03 05:23] LABS: Glucose, Whole Blood 103 mg/dL (60-115)
[2023-11-03] MEDS: levETIRAcetam in NaCl (iso-os) 500 MG/100 ML PIGGYBACK 400 MG IV ×2 (05:30→17:11)
[2023-11-03 06:34] LABS: Hemoglobin 12.5 g/dl (14.0-18.0); Mean Corpuscular HGB Conc 34.7 g/dl (31.0-36.0); Mean Corpuscular Hemoglobin 32.1 pg (27.0-33.0); Mean Corpuscular Volume 92.3 fL (80.0-98.0); Mean Platelet Volume 9.3 fL (9.4-12.4); Platelet Count 174 X10*3/uL (160-400); Red Cell Distribution Width 11.7 % (11.0-16.0); White Blood Count 6.9 X10*3/uL (4.8-10.8)
[2023-11-03 07:00] LABS: Anion Gap 11 (12-20); Blood Urea Nitrogen 10 mg/dL (9-16); Carbon Dioxide 25 mmol/L (22-29); Chloride 107 mmol/L (96-108); Creatinine Clr Calc Pharmacy 144.6; Estimated Glomerular Filt Rate > 60; Glucose Random 96 mg/dL (60-115); Potassium 3.6 mmol/L (3.3-5.1); Sodium 139 mmol/L (135-145)
[2023-11-03 07:14] LABS: Calcium 9.2 mg/dL (8.4-10.2)
[2023-11-03] MEDS: levoFLOXacin/D5W 750 MG/150 ML PIGGYBACK 100 MG IV (08:07)
[2023-11-03] MEDS: 0.9 % Sodium Chloride Flush 3 ML SYRINGE IVFLUSH ×2 (08:09→17:13)
[2023-11-03 08:11] LABS: Glucose, Whole Blood 101 mg/dL (60-115)
--- NOTE | 2023-11-03 09:14 | PC.RT ---
Pt ordered on Breo dpi. Pt is unable to participate or follow instructions. Nurse aware.
--- NOTE | 2023-11-03 09:14 | MHC.CM.PN ---
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 CM has initiated and will follow for dc planning. CM left a detailed message for Guardian/Shannon @ [phone], informing her of Patient's admission. Patient is a [facility] bed hold at [facility].
--- NOTE | 2023-11-03 11:32 | P.PNIM_ITS ---
Subjective Subjective Date of Service: 11/03/23 Interval History: Seen and evaluated this morning difficult to arouse but more interactive no reported overnight events Review of Systems Review of Systems: Yes all other systems are reviewed and are negative Physical Exam 2 Vital Signs: Vital Signs: Last Vital Signs Temp 97.1 F 11/03/23 11:04 Pulse 71 11/03/23 11:04 Resp 18 11/03/23 11:04 BP 170/8 H 11/03/23 11:04 Pulse Ox 96 11/03/23 11:04 O2 Del Method Nasal Cannula 11/03/23 11:04 O2 Flow Rate 2 11/03/23 11:04 Oxygen Flow Rate 2 11/02/23 09:03 BMI result Body Mass Index 33.7 Const: Other: Constitutional : altered, not in distress Cardiovascular : no JVP, no lower extremity edema Respiratory : bilateral chest movement, not in resp distress Gastrointestinal: soft, lax, Non tender Skin : Warm, Dry Neurological : altered mentation, No focal deficit can be appreciated as he moves all extremities Objective Data Active Medications Acetaminophen (Acetaminophen 325 Mg Tablet) 650 mg PO Q6H PRN PRN Reason: Pain, Mild (Pain Scale 1-3) Acetaminophen (Acetaminophen Supp 650 Mg Supp.Rect) 650 mg AL Q6H PRN PRN Reason: Fever Or Pain Albuterol Sulfate (Albuterol Sulfate 90 Mcg 8 Gm Inhaler) 1 puff INHALE Q6H PRN PRN Reason: Shortness Of Breath Or Wheezing Albuterol/Ipratropium (Albuterol/Iprat 2.5/0.5mg 3 Ml Ampul.Neb) 3 ml INHALE Q6H PRN PRN Reason: Shortness Of Breath Bisacodyl (Bisacodyl 10 Mg Supp.Rect) 10 mg AL DAILY PRN PRN Reason: Constipation Diazepam (Diazepam 10 Mg/2 Ml Cartridge) 5 mg IM DAILY PRN PRN Reason: Seizure Activity Enoxaparin Sodium (Enoxaparin Sodium 40 Mg/0.4 Ml Syringe) 40 mg SUBCUT Q24H [facility] Last Admin: 11/02/23 19:13 Dose: 40 mg Documented By: CHELSIE Fluticasone/Vilanterol (Fluticasone/Vilanterol 100/25 Blst.W.Dev) 1 puff INHALE RDAILY [facility] Last Admin: 11/03/23 09:01 Dose: Not Given Documented By: PATRICIA Non-Admin Reason: pt is not able to use this medication deliver Dextrose (D10) 250 mls @ 750 mls/hr IV Q15M PRN PRN Reason: per Hypoglycemia Standing Ord. Last Infusion: 11/02/23 14:50 Dose: Infused Documented By: CHELSIE Levofloxacin (Levaquin) 750 mg in 150 mls @ 100 mls/hr IV Q24H [facility] Last Infusion: 11/03/23 10:23 Dose: Infused Documented By: ANA CRISTINA Dextrose/Lactated Ringer's (D5lr) 1,000 mls @ 100 mls/hr IVCONT .Q10H [facility] Last Admin: 11/03/23 01:56 Dose: 100 mls/hr Documented By: MORGAN Levetiracetam (Keppra) 500 mg in 100 mls @ 400 mls/hr IV Q12H [facility] Last Infusion: 11/03/23 05:45 Dose: Infused Documented By: MORGAN Melatonin (Melatonin 3 Mg Tablet) 6 mg PO BEDTIME PRN PRN Reason: Insomnia Sodium Biphosphate/Sodium Phosphate (Sodium Phosphate,Grainger-Dibasic 133 Ml Enema) 118 ml AL DAILY PRN PRN Reason: Constipation Sodium Chloride (0.9 % Sodium Chloride Flush 3 Ml Syringe) 3 ml IVFLUSH QSHIFT [facility] Last Admin: 11/03/23 08:09 Dose: 3 ml Documented By: ANA CRISTINA Labs 11/03/23 06:11 11/03/23 06:11 Labs: Laboratory Results - last 24 hr 11/02/23 11/02/23 11/02/23 13:56 15:35 17:37 MCV MCH MCHC RDW Plt Count MPV Absolute Nucleated RBC Nucleated RBC % (auto) Anion Gap Estim Creat Clear Calc Estimated GFR POC Glucose 63 125 H 130 H Random Glucose Calcium 11/02/23 11/02/23 11/03/23 19:40 22:01 02:03 MCV MCH MCHC RDW Plt Count MPV Absolute Nucleated RBC Nucleated RBC % (auto) Anion Gap Estim Creat Clear Calc Estimated GFR POC Glucose 134 H 110 98 Random Glucose Calcium 11/03/23 11/03/23 11/03/23 05:18 06:11 08:06 MCV 92.3 MCH 32.1 MCHC 34.7 RDW 11.7 Plt Count 174 MPV 9.3 L Absolute Nucleated RBC 0.000 Nucleated RBC % (auto) 0.0 Anion Gap 11 L Estim Creat Clear Calc 144.6 Estimated GFR > 60 POC Glucose 103 101 Random Glucose 96 Calcium 9.2 Microbiology Microbiology Results: Microbiology 11/02/23 11:19 Urine Culture - Final Urine Catheterized - Reynolds Catheter Assessment and Plan (1) Encephalopathy: Status: Acute (2) Hypothermia: Status: Acute (3) Acute UTI: Status: Acute Plan Pt is a 57-year-old male with a PMH significant for?frontal temporal neural cognitive disorder, seizure disorder, anoxic brain injury, COPD, dysphagia, BPH, hepatitis-C, HTN, polyneuropathy, hx of obstructive uropathy, depression, and schizoaffective disorder who presents to the ED from [facility] for evaluation of altered mental status and lethargy after staff at facility were unable to wake him up this morning. Pt will be admitted to the hospital for evaluation and treatment acute metabolic encephalopathy, bradycardia, and hypothermia in the setting of acute UTI. Acute metabolic encephalopathy likely 2/2 acute UTI Pending final culture Continue levofloxacin, started 11/02/2023 Monitor mentation and recurrent reorientation acute Hypothermia 2/2 infection improved, core body temperature >96 Follow vitals closely Bradycardia Likely secondary to hypothermia improved to 60-70s Monitor on telemetry Low blood glucose resolved Unspecified seizure disorder Tegretol to Keppra 500 mg IV b.i.d. Resume Tegretol as mentation improves MANAGER BATTERY rec NDD2 diet COPD Not in acute exacerbation Continue home inhalers, albuterol p.r.n. Hx of dysphagia Currently NPO given encephalopathy, MANAGER BATTERY evaluation pending BPH Resume finasteride once mentation improves Chronic constipation Resume bowel regimen once no longer NPO Full Code DVT Prophylaxis: Lovenox Pt will require a hospitalization overnight for treatment of?acute metabolic encephalopathy, bradycardia, and hypothermia in the setting acute UTI. Patient will require hospitalization for antibiotics pending clinical improvement Quality Stroke Does the patient have a stroke diagnosis?: No VTE Prior VTE?: No VTE Risk Level:: Medical - moderate - high VTE Device Contraindication: Treatment Not Indicated VTE Drug Contraindication: N/A - Med Ordered
[2023-11-03 12:05] LABS: Glucose, Whole Blood 89 mg/dL (60-115)
--- NOTE | 2023-11-03 12:10 | MHC.CLN ---
RE: CONSULT LOGISTICS DIRECTOR ADVANCING PT'S DIET TO GRD M/S PT REPORTS POOR PO GLOBAL SAFETY OFFICER RECOMMEND ADDING ENSURE BID TO INCREASE KCALS SUPP TO PROVIDE 700KCALS, 40G PROTEIN MONITOR PO INTAKE AND ENCOURAGE SUPPLEMENTS
--- NOTE | 2023-11-03 13:06 | MHC.SL.SWA ---
Speech Pathologist Impression: Risk of aspiration, oral phase dysphagia Risk of Aspiration Due to: Lethargy Neurological Condition Reduced Cognition Dysphasia Diet Status: Start on NDD2/THIN Liquid Consistency and Strategies for Safe Swallow: Liquid Intake Recommendation: Thin Liquid Intake Strategies: Small Sips No Straws Solid Food Consistency: Dietary Recommendations: Grnd/Mech Altered (NDD2) Additional Modifications to Solid Foods: Patient seen this morning for bedside swallow exam. Mild oral phase dysphagia, with slow mastication and pocketing of harder solids. Recommend UPGRADE from NPO, START on GROUND/MECH ALTERED diet (NDD2) for ease of mastication and THIN liquids, with pills CRUSHED in PUREE. Patient will need 1:1 assistance feeding and strategies to promote oral clearance: small bites, cues to chew food well, alternate bites with sips of food, check for pocketing periodically, ensure oral cavity is cleared before giving more bites, moisten food with sauces/gravies mixed and blended in well with food. Oral Medication Intake: Crushed with Puree Please contact the pharmacy regarding appropriate crushable or liquid drug formulations that are available whenever modified delivery is recommended. Compensatory Strategies and Precautions to be Taken for Safe Swallow: Sitting Upright (90 deg) Double Swallow No Straw Small Bites and Sips Alternate Liquids/Solids Rate of Ingestion Change Oral Check Avoid Specific Foods Supervision While Eating and Drinking for Safe Swallow: Total Assistance (1:1) Foods to Avoid: Hard, dry, or crunchy solids; mixed textures Swallowing Recommended Treatments: Compens. Strategy Educat. Recommendation for Speech: Inpatient Speech Therapy Comment: CHIMNEY SWEEPER will continue to follow during inpatient stay to monitor tolerance and to re-assess for potential upgrade if appropriate. Frequency/Duration: M-F PRN Date Range for Service Req: Timeline to reassess: Qa Automation Developer Clinican/Clinical Fellow: No Supervisory Statement: I have reviewed and agree with the student/clinical fellow's documentation: N/A Speech Language Pathologist: Elizabeth Vera M.A., CCC-CHIMNEY SWEEPER
[2023-11-03 16:11] LABS: Glucose, Whole Blood 95 mg/dL (60-115)
[2023-11-03] MEDS: Enoxaparin Sodium 40 MG/0.4 ML SYRINGE SUBCUT (17:14)
[2023-11-04] VITALS: BP 162/79; PULSE 53; RESP 19; TEMP 36.7
[2023-11-04 04:00] VITALS: BP 150/72; PULSE 50; RESP 19; TEMP 36.7; O2SAT 100
[2023-11-04] MEDS: levETIRAcetam in NaCl (iso-os) 500 MG/100 ML PIGGYBACK 400 MG IV (05:02)
[2023-11-04 07:11] VITALS: BP 141/70; PULSE 53; RESP 18; TEMP 36.8; O2SAT 100
[2023-11-04 07:23] LABS: Glucose, Whole Blood 104 mg/dL (60-115)
[2023-11-04 07:46] LABS: Anion Gap 14 (12-20); Blood Urea Nitrogen 10 mg/dL (9-16); Calcium 9.1 mg/dL (8.4-10.2); Carbon Dioxide 27 mmol/L (22-29); Chloride 104 mmol/L (96-108); Creatinine Clr Calc Pharmacy 142.4; Estimated Glomerular Filt Rate > 60; Glucose Random 89 mg/dL (60-115); Potassium 3.9 mmol/L (3.3-5.1); Sodium 141 mmol/L (135-145)
[2023-11-04] MEDS: 0.9 % Sodium Chloride Flush 3 ML SYRINGE IVFLUSH ×2 (09:19→16:10)
[2023-11-04] MEDS: levoFLOXacin/D5W 750 MG/150 ML PIGGYBACK 100 MG IV (09:26)
--- NOTE | 2023-11-04 12:21 | HO.PM.IMPN ---
Subjective Subjective Date of Service: 11/04/23 Interval History: Seen and evaluated this morning more interactive and had breakfast refusing PO pills and gets agitated on occasions no reported overnight events Review of Systems Review of Systems: Yes all other systems are reviewed and are negative Physical Exam Vital Signs: Vital Signs: Last Vital Signs Temp 98.3 F 11/04/23 07:11 Pulse 53 11/04/23 07:11 Resp 18 11/04/23 07:11 BP 141/70 H 11/04/23 07:11 Pulse Ox 100 11/04/23 07:11 O2 Del Method Nasal Cannula 11/04/23 07:11 O2 Flow Rate 3 11/04/23 07:11 Oxygen Flow Rate 2 11/02/23 09:03 BMI result Body Mass Index 33.7 Const: Other: Constitutional : sleeping but wakes up to stimuli, not in distress Cardiovascular : no JVP, no lower extremity edema Respiratory : bilateral chest movement, not in resp distress Gastrointestinal: soft, lax, Non tender Skin : Warm, Dry Neurological : alert with stimulation, moves all extremities Objective Data Active Medications Acetaminophen (Acetaminophen 325 Mg Tablet) 650 mg PO Q6H PRN PRN Reason: Pain, Mild (Pain Scale 1-3) Acetaminophen (Acetaminophen Supp 650 Mg Supp.Rect) 650 mg NC Q6H PRN PRN Reason: Fever Or Pain Albuterol Sulfate (Albuterol Sulfate 90 Mcg 8 Gm Inhaler) 1 puff INHALE Q6H PRN PRN Reason: Shortness Of Breath Or Wheezing Albuterol/Ipratropium (Albuterol/Iprat 2.5/0.5mg 3 Ml Ampul.Neb) 3 ml INHALE Q6H PRN PRN Reason: Shortness Of Breath Bisacodyl (Bisacodyl 10 Mg Supp.Rect) 10 mg NC DAILY PRN PRN Reason: Constipation Diazepam (Diazepam 10 Mg/2 Ml Cartridge) 5 mg IM DAILY PRN PRN Reason: Seizure Activity Enoxaparin Sodium (Enoxaparin Sodium 40 Mg/0.4 Ml Syringe) 40 mg SUBCUT Q24H [facility] Last Admin: 11/03/23 17:14 Dose: 40 mg Documented By: ANA CRISTINA Fluticasone/Vilanterol (Fluticasone/Vilanterol 100/25 Blst.W.Dev) 1 puff INHALE RDAILY [facility] Last Admin: 11/04/23 08:14 Dose: Not Given Documented By: CAROLYN Non-Admin Reason: Patient Condition Contraindication Dextrose (D10) 250 mls @ 750 mls/hr IV Q15M PRN PRN Reason: per Hypoglycemia Standing Ord. Last Infusion: 11/02/23 14:50 Dose: Infused Documented By: CHELSIE Levofloxacin (Levaquin) 750 mg in 150 mls @ 100 mls/hr IV Q24H [facility] Last Infusion: 11/04/23 11:15 Dose: Infused Documented By: ADELITA Levetiracetam (Keppra) 500 mg in 100 mls @ 400 mls/hr IV Q12H [facility] Last Infusion: 11/04/23 05:38 Dose: Infused Documented By: CHACORTA Melatonin (Melatonin 3 Mg Tablet) 6 mg PO BEDTIME PRN PRN Reason: Insomnia Sodium Biphosphate/Sodium Phosphate (Sodium Phosphate,Berks-Dibasic 133 Ml Enema) 118 ml NC DAILY PRN PRN Reason: Constipation Sodium Chloride (0.9 % Sodium Chloride Flush 3 Ml Syringe) 3 ml IVFLUSH QSHIFT [facility] Last Admin: 11/04/23 09:19 Dose: 3 ml Documented By: ADELITA Labs 11/03/23 06:11 11/04/23 06:35 Labs: Laboratory Results - last 24 hr 11/03/23 11/04/23 11/04/23 16:03 06:35 07:18 Hold Purple Top SEE NOTE Anion Gap 14 Estim Creat Clear Calc 142.4 Estimated GFR > 60 POC Glucose 95 104 Random Glucose 89 Calcium 9.1 Microbiology Microbiology Results: Microbiology 11/02/23 09:30 Blood Culture - Preliminary Blood - Venous No growth after 48 hours. 11/02/23 09:22 Blood Culture - Preliminary Blood - Venous No growth after 48 hours. 11/02/23 11:19 Urine Culture - Final Urine Catheterized - Reynolds Catheter Assessment and Plan (1) Encephalopathy: Status: Acute (2) Acute UTI: Status: Acute (3) Hypothermia: Status: Acute Plan Pt is a 57-year-old male with a PMH significant for?frontal temporal neural cognitive disorder, seizure disorder, anoxic brain injury, COPD, dysphagia, BPH, hepatitis-C, HTN, polyneuropathy, hx of obstructive uropathy, depression, and schizoaffective disorder who presents to the ED from [facility] for evaluation of altered mental status and lethargy after staff at facility were unable to wake him up this morning. Pt will be admitted to the hospital for evaluation and treatment acute metabolic encephalopathy, bradycardia, and hypothermia in the setting of acute UTI. Acute metabolic encephalopathy likely 2/2 acute UTI improving Pending final cultures Continue levofloxacin, started 11/02/2023 Monitor mentation and recurrent reorientation acute Hypothermia 2/2 infection improved, core body temperature >96 Follow vitals closely Bradycardia Likely secondary to hypothermia improved to 60-70s Monitor on telemetry Low blood glucose resolved Unspecified seizure disorder Tegretol PO to Keppra 500 mg IV b.i.d. 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 Hx of dysphagia Currently NPO given encephalopathy, PRODUCER ARBORIST MANAGER evaluation pending BPH Resume finasteride once mentation improves Chronic constipation Resume bowel regimen once no longer NPO Full Code DVT Prophylaxis: Lovenox Pt will require a hospitalization overnight for treatment of?acute metabolic encephalopathy, bradycardia, and hypothermia in the setting acute UTI. Patient will require hospitalization for antibiotics pending clinical improvement Quality Stroke Does the patient have a stroke diagnosis?: No VTE Prior VTE?: No VTE Risk Level:: Medical - moderate - high VTE Device Contraindication: Treatment Not Indicated VTE Drug Contraindication: N/A - Med Ordered
--- NOTE | 2023-11-04 12:28 | PC.NURSE ---
Patient is alert to self and able to read that he is at hospital. Patient becoming agitated at this time. Patient is refusing care, unable to obtain 11:00 vitals, 11:00 poc, and refused removal of Reynolds catheter.. Dr. Pulido made aware via tiger text at 11:14am. Advised to allow patient to calm down and revisit pt care in a while?
[2023-11-04 15:03] VITALS: BP 161/77; PULSE 63; RESP 20; TEMP 36.6; O2SAT 98
--- NOTE | 2023-11-04 15:44 | PC.NURSE ---
pt is alert to self. Patient is refusing care to poc to monitor glucose levels. He states 'it hurts . Education provided at bedside , patient still refusing care. stating he should not even be here. Provider Dr. Pulido made aware at 15:38 via tigertext patient is not complying. Provider stated to document resistance to care.
--- NOTE | 2023-11-04 17:56 | PC.NURSE ---
Patient alert to self, patient is agitated, screaming and using profane language. Patient became irritate when nurse approach patent to administer iv Keppra. Patient states i refuse over and over again. Provider Afsaneh notified via tiger text @ 17:50, that patient is refusing iv Keppra.
[2023-11-04 21:40] VITALS: PULSE 74; RESP 18; TEMP 36.8; O2SAT 94
[2023-11-04 23:35] VITALS: BP 155/64; PULSE 71; RESP 16; TEMP 36.6; O2SAT 93
[2023-11-05 03:53] VITALS: BP 161/70; PULSE 66; RESP 16; TEMP 36.4; O2SAT 93
[2023-11-05] MEDS: levETIRAcetam in NaCl (iso-os) 500 MG/100 ML PIGGYBACK 400 MG IV (04:54)
[2023-11-05 07:41] VITALS: PULSE 62; O2SAT 93
[2023-11-05] MEDS: Fluticasone/Vilanterol 100/25 BLST.W.DEV 1 PUFF INHALE (07:41)
[2023-11-05 07:42] VITALS: PULSE 62; RESP 16; O2SAT 93
[2023-11-05] MEDS: levoFLOXacin/D5W 750 MG/150 ML PIGGYBACK 100 MG IV (09:08)
--- NOTE | 2023-11-05 09:15 | MHC.CM.PN ---
Addendum entered by Slime Fox, RN 11/05/23 10:41: CM CONTACTED [facility] AND SPOKE W/PT'S NURSE KJ, JK REQUESTING PT BE TRANSPORTED AFTER 3PM AND CM WILL SET UP TRANSPORT FOR 3:30PM W/RAE FOR BLS Original Note: PER HOSPITALIST ANTIC PT WILL BE MEDICALLY CLEARED FOR DC BACK TO [facility], CM CONTACTED PT'S GUARDIAN CURTIS REN AT 9:10AM AT NUMBER ON FILE, CURTIS REPORTS SHE IS AGREEABLE TO RETURN HOWEVER WOULD LIKE TO SPEAK TO A HOSPITALIST SHE HAS BEEN TRYING TO GET IN TOUCH W/C AND HAS BEEN HAVING DIFFICULTIES W/HER PHONE, HOSPITALIST AWARE AND WILL REACH OUT TO [facility] FOR TRANSPORT ONCE CLEARED.
[2023-11-05 11:05] VITALS: BP 162/78; PULSE 60; RESP 20; TEMP 36.3; O2SAT 94
--- NOTE | 2023-11-05 11:13 | PM.DS ---
DS: Providers Provider Date of Service: 11/05/23 Date of admission: 11/02/23 15:08 Primary care physician: TAMIKO CRANE Consults: 11/03/23 02:09 Consult to Wound Care Routine Reason for consultation: redness to heels DS: Diagnosis Discharge Diagnosis (1) Encephalopathy: Status: Acute (2) Acute UTI: Status: Acute (3) Hypothermia: Status: Acute DS: Summary Hospital Course Hospital Course: Admission note Pt is a 57-year-old male with a PMH significant for?frontal temporal neural cognitive disorder, seizure disorder, anoxic brain injury, COPD, dysphagia, BPH, hepatitis-C, HTN, polyneuropathy, hx of obstructive uropathy, depression, and schizoaffective disorder who presents to the ED from [facility] for evaluation of altered mental status and lethargy after staff at facility were unable to wake him up this morning. Patient currently obtunded and nonresponsive to verbal or painful stimuli. HPI thus obtained from chart and provider review. Facility apparetntly found pt's blood gluose to be 23, treated with glucagon IM x2 doses; repeat by EMS 117. Pt was also noted to be bradycardic in 40s and given atropine 1mg by EMS. Narcan was also administered without effect. In the ED pt was found to be hypothermic as low as 92.3 and noted to have a UTI. Was placed in a Deidra Hugger. Of note, patient had a similar presentation to the hospital in 2002 with acute encephalopathy, hypothermia, and bradycardia. Was found to have Proteus UTI treated with levofloxacin. In the ED pt was hypothermic as low as 92.3, bradycardic as low as 51, and with soft BP as low as 82/46. Labs were significant for testing positive for UTI, CRP 1.12, and POC glucose as low as 63. Labs otherwise grossly unremarkable and WNL/baseline for patient. No leukocytosis. Stable H&H. No significant electrolyte abnormalities. Renal and hepatic function WNL. TSH WNL. Procalcitonin 0.02. Ammonia WNL at 51. Troponin negative. BNP WNL at 16. Tested negative for flu, RSV, and COVID. CXR showed no active disease. CT?of head showed no acute intracranial pathology. EKG demonstrated normal sinus rhythm with HR 60. Pt was placed in a Deidra Hugger and treated with IVF, hydrocortisone, dextrose, and levofloxacin. Pt will be admitted to the hospital for evaluation and treatment acute metabolic encephalopathy, bradycardia, and hypothermia in the setting of acute UTI. Hospital course Admitted for treatment of Acute metabolic encephalopathy secondary to acute UTI complicated by hypothermia and bradycardia on admission which was treated with IV Levaquin given the patient history of allergies. Culture grew mixed bacteria from urine. His mental status improved back to baseline and he was able to tolerate diet. Both hypothermia and bradycardia resolved as body tempreture went back to normal using bear hugger. Given his encephalopathy he was started on IV keppra as he could not take PO Carbamazepine with no reported seizure activities. to be discharged back to SNF to finish 7 days of antibiotics. Discharge Plan Continue Levaquin for urine infection Change Baclofen to PRN Time Attestation Discharge Coordination Time (in mins): 37 Quality: Safe Use of Opioids Does Pt have an Active Cancer Diagnosis on the Problem List?: No Quality: Stroke Does the patient have a stroke diagnosis?: No Physical Exam Vital Signs: Vital Signs: Last Vital Signs Temp 97.3 F 11/05/23 11:05 Pulse 60 11/05/23 11:05 Resp 20 11/05/23 11:05 BP 162/78 H 11/05/23 11:05 Pulse Ox 94 11/05/23 11:05 O2 Del Method Room Air 11/05/23 11:05 O2 Flow Rate 3 11/04/23 15:03 Oxygen Flow Rate 2 11/02/23 09:03 BMI result Body Mass Index 33.7 Const: Other: Constitutional : interactive, not in distress Cardiovascular : no JVP, no lower extremity edema Respiratory : bilateral chest movement, not in resp distress Gastrointestinal: soft, lax, Non tender Skin : Warm, Dry Neurological : Alert & oriented to self , bilateral upper extremities weakness more noticed in right side. DS: Data Data Completed and Pending Labs on day of discharge: Preliminary micro results at discharge 11/02/23 09:30 Blood Culture - Preliminary Blood - Venous No growth after 48 hours. 11/02/23 09:22 Blood Culture - Preliminary Blood - Venous No growth after 48 hours. Imaging Chest x-ray: Radiologist's impression: ITS Impressions Head CT 11/02/23 10:10 IMPRESSION: No acute intracranial pathology. Chest X-Ray 11/02/23 10:12 IMPRESSION: No active disease given the technical limitations. Discharge Plan Discharge Anticipated Discharge Date/Time: 11/05/23 11:06 Patient Disposition: Xfer SNF Discharge Diagnosis: Encephalopathy Urine infection Referrals: [facility] [Outside] - 1 Day (RESUMPTION OF LTC) TAMIKO CRANE [Primary Care Provider] - 1 Week Discharge Medications: New levofloxacin 500 mg tablet 500 mg PO DAILY Qty: 4 0RF Continued tizanidine 2 mg Tablet 10 mg PO BEDTIME docusate sodium 100 mg Capsule 100 mg PO BID calcium carbonate-vitamin D3 [Calcium 600 + D(3)] 600 mg-10 mcg (400 unit) Tablet 1 tab PO BID Fleet Enema 19-7 gram/118 mL Enema 118 ml MI DAILY PRN (Reason: Constipation) Rx Instructions: USE IF BISACODYL SUPPOSITORY IS INEFFECTIVE sennosides [senna] 8.6 mg Tablet 17.2 mg PO BEDTIME Rx Instructions: HOLD FOR LOOSE STOOLS diazepam 5 mg/mL Syringe 5 mg IM DAILY PRN (Reason: Seizure Activity) guaifenesin 100 mg/5 mL Liquid 200 mg PO Q4H PRN (Reason: Cough) acetaminophen 650 mg Suppository 650 mg MI Q6H PRN (Reason: Fever Or Pain) acetaminophen 325 mg Tablet 650 mg PO Q6H PRN (Reason: PAIN OR FEVER) Rx Instructions: fever above 101 carbamazepine 100 mg Tablet,Chewable 150 mg PO DAILY carbamazepine 100 mg Tablet,Chewable 300 mg PO BEDTIME albuterol sulfate 90 mcg/actuation Hfa Aerosol Inhaler 1 puff INHALATION Q6H PRN (Reason: Shortness Of Breath Or Wheezing) ketoconazole 2 % Cream 1 appl TOPICAL BID Rx Instructions: USE ON RASH AREAS ON FACE AND ELBOWS finasteride 5 mg Tablet 5 mg PO DAILY cholecalciferol (vitamin D3) [Optimal D3] 1,250 mcg (50,000 unit) Capsule 1,250 mcg PO QMONTH Rx Instructions: ADMINISTER IN THE MORNING OF EACH FOURTH DAY OF THE MONTH polyethylene glycol 3350 [Miralax] 17 gram/dose powder 17 g PO DAILY fluticasone furoate-vilanterol [Breo Ellipta] 100-25 mcg/dose blister with device 1 inh inhalation DAILY Rx Instructions: RINSE MOUTH AFTER EACH USE fluoxetine 20 mg capsule 20 mg PO DAILY tamsulosin 0.4 mg capsule 0.4 mg PO BEDTIME magnesium hydroxide [Milk of Magnesia] 400 mg/5 mL suspension 30 ml PO DAILY PRN (Reason: Constipation) Rx Instructions: NO BM IN 3 DAYS bisacodyl [Dulcolax (bisacodyl)] 10 mg suppository 10 mg MI DAILY PRN (Reason: Constipation) Rx Instructions: US IF MOM IS INEFFECTIVE ipratropium-albuterol 0.5 mg-3 mg(2.5 mg base)/3 mL solution for nebulization 3 ml inhalation Q6H PRN (Reason: Shortness Of Breath) (DME) CPAP Device See Rx Instructions .Route Rx Instructions: As directed Changed baclofen 5 mg tablet 15 mg PO Q8H PRN (Reason: Muscle Spasm) Qty: 30 0RF Discharge Orders: Discharge Order (Routine); Ordered 11/05/23 Ordered By: Lucero Pulido Diet: NDD2 w thin liquids Activity on Discharge: As tolerated Stand Alone Forms: Patient Portal Discharge page Print Language: Setswana Care Plan Goals: Read below Health Concerns: Read below Plan of Treatment: Read below Assessment: Continue Levaquin for urine infection Change Baclofen to PRN
--- NOTE | 2023-11-05 11:26 | PC.NURSE ---
Called report to ESTRELLA Menendez at [facility] at 11:25am. Ambulatory transportation services schedule for 15:30.
[2023-11-05 15:03] VITALS: BP 165/98; PULSE 74; RESP 20; TEMP 36.6; O2SAT 94
== END 2023-11-05 15:56 | disposition skilled nursing facility (03) | DRG 463 ==
LOC: HO.ED 10:06 → HO.EDOVER 15:20 → HO.IMC 19:20
PROVIDERS: Admitting Provider Student in an Organized Health Care Education/Training Program; Emergency Provider Emergency Medicine; PCP Emergency Medicine; Visit Provider Student in an Organized Health Care Education/Training Program
DX: N39.0 Urinary tract infection, site not specified (principal); G93.41 Metabolic encephalopathy; G31.09 Other frontotemporal neurocognitive disorder; F02.80 Dementia in other diseases classified elsewhere, unspecified severity, without behavioral disturbance, psychotic disturbance, mood disturbance, and anxiety; G40.909 Epilepsy, unspecified, not intractable, without status epilepticus; J44.9 Chronic obstructive pulmonary disease, unspecified; N40.0 Benign prostatic hyperplasia without lower urinary tract symptoms; R68.0 Hypothermia, not associated with low environmental temperature; Z20.822 Contact with and (suspected) exposure to COVID-19; Z79.51 Long term (current) use of inhaled steroids; Z79.899 Other long term (current) drug therapy
CPT/HCPCS: 0241U; 36415; 70450; 71045; 80048; 80076; 81001; 82140; 82803; 82947; 83605; 83690; 83735; 83880; 84145; 84443; 84484; 85025; 85027; 85610; 86140; 87040; 87086; 92610; 93005; 94640; 99285; C1758; J1650; J1720; J1953; J1956

== ENCOUNTER → 2023-11-02 09:01 | Outpatient (BNV) | payer MEDICAID, SELFPAY | PROVIDERS: Emergency Provider Emergency Medicine; PCP Emergency Medicine; Visit Provider Internal Medicine | DX: R00.1 Bradycardia, unspecified (principal) | CPT/HCPCS: 93010 ==

== ENCOUNTER → 2023-11-02 15:08 | Outpatient (BNV) | payer MEDICAID, SELFPAY | PROVIDERS: Admitting Provider Student in an Organized Health Care Education/Training Program; Emergency Provider Emergency Medicine; PCP Emergency Medicine; Visit Provider Student in an Organized Health Care Education/Training Program | DX: G93.41 Metabolic encephalopathy (principal); N39.0 Urinary tract infection, site not specified; T68.XXXA Hypothermia, initial encounter | CPT/HCPCS: 99223; 99232; 99233; 99239 ==